=== PATIENT | male | born 1955 | race Caucasian/White ===

== ENCOUNTER 2017-03-10 15:39 | Inpatient (IN) ==
[2017-03-10] MEDS ORDERED: Ipratropium/Albuterol Neb 3 ML IH ONE (15:55)
[2017-03-10] MEDS ORDERED: methylPREDNISolone 125 MG/2 ML VIAL IVP ONE (15:55)
[2017-03-10] MEDS ORDERED: Albuterol 2.5 MG/3 ML NEBULIZER IH ONE (15:55)
[2017-03-10] MEDS ORDERED: *HR* Morphine 2 MG/ML SYRINGE IVP ONE (16:12)
[2017-03-10 16:39] LABS: Basophils # 0.1 K/mcL (0.0-0.2); Eosinophils # 0.4 K/mcL (0.0-0.6); Eosinophils % 4.6 %; Hematocrit 41.1 % (37.5-50.1); Hemoglobin 14.3 g/dL (12.9-16.9); Immature Granulocytes % 0.2 % (0-4); Lymphocytes # 1.4 K/mcL (0.6-4.6); Lymphocytes % 17.6 %; Mean Corpuscular HGB Conc 34.8 g/dL (31.6-35.5); Mean Corpuscular Hemoglobin 29.8 pg (28.0-33.3); Mean Corpuscular Volume 85.6 fL (83.0-100.0); Mean Platelet Volume 9.6 fL (9.4-12.4); Monocytes # 0.8 K/mcL (0.0-1.3); Monocytes % 9.8 %; Neutrophils # 5.5 K/mcL (1.6-8.9); Platelet Count 256 K/mcL (140-400); Red Cell Distribution Width 13.7 % (11.5-14.5); Segmented Neutrophils % 66.8 %
[2017-03-10 16:43] LABS: BUN/Creatinine Ratio 14 (6-26); Blood Urea Nitrogen 15 mg/dL (8-26); Calcium 9.3 mg/dL (8.6-10.8); Carbon Dioxide 25 mEq/L (19-29); Chloride 107 mEq/L (98-109); Glucose 93 mg/dL (70-99); Osmolality,Calculated 289 (280-300); Potassium 3.6 mEq/L (3.5-4.5); Sodium 139 mEq/L (136-145); eGFR For African Americans > 60 (> 60); eGFR For Non-African Americans > 60 (> 60)
[2017-03-10] MEDS ORDERED: *HR* HYDROmorphone (PF) 1 MG/ML SYRINGE IVP ONE (16:50)
--- NOTE | 2017-03-10 16:58 | Emergency Department Note ---
Disposition Clinical Impression: COPD with acute exacerbation Disposition: Admitted As Inpatient Condition: Good Time of Disposition: 16:55 SOB HPI - General Chief Complaint: ED Shortness of Breath/Dyspnea Stated Complaint: AVIVA Time Seen by Provider: 03/10/17 15:51 Source: patient Mode of arrival: ambulatory Limitations: no limitations Nursing Notes Reviewed: Yes Vital Signs Reviewed: Yes - History of Present Illness 61-year-old male presents with concerns of increasing difficulty in breathing over the past 24 hours. Patient states that this feels similar to his previous COPD exacerbations. Patient uses multiple albuterol inhalers this morning with minimal benefit. Patient also states that he has a mild amount of substernal pain that does not radiate. Patient states that he has been admitted to the hospital for COPD multiple times in the past, requiring steroids and antibiotics. - Related Data Home Medications Medication Instructions Recorded Confirmed Fluticasone/Salmeterol [Advair 1 each IH BID 04/26/15 03/10/17 500-50 Diskus] Rivaroxaban [Xarelto] 20 mg PO QPM 04/26/15 03/10/17 traZODone [TraZODone] 150 mg PO HS 07/28/15 03/10/17 Atorvastatin Calcium [Lipitor] 80 mg PO HS 06/24/16 03/10/17 Losartan/Hydrochlorothiazide 1 each PO DAILY 06/24/16 03/10/17 [Hyzaar 100-25 Tablet] Metoprolol XL (24 HR) Succ [Toprol 25 mg PO DAILY 06/24/16 03/10/17 Xl] Pantoprazole Sodium [Protonix] 40 mg PO DAILY 06/24/16 03/10/17 Albuterol Neb [AccuNeb] 1.25 mg IH Q6H PRN 03/10/17 03/10/17 Clopidogrel [Plavix] 75 mg PO DAILY 03/10/17 03/10/17 Meloxicam [Mobic] 7.5 mg PO BID 03/10/17 03/10/17 Oxycodone HCl/Acetaminophen 1 each PO TID PRN 03/10/17 03/10/17 [Percocet 5-325 mg Tablet] predniSONE [PredniSONE] 10 mg PO DAILY 03/10/17 03/10/17 Allergies Allergy/AdvReac Type Severity Reaction Status Date / Time No Known Allergies Allergy Verified 04/26/15 09:19 All systems ED: reviewed and negative except as stated. Cardiovascular: Reports: chest pain. Denies: palpitations, dyspnea on exertion , syncope, paroxysmal nocturnal dyspnea Respiratory: Reports: cough, dyspnea, wheezes. Denies: hemoptysis, stridor Past Medical History - Past Medical History Attestation: Yes The following information was validated with the patient. Source: patient Medical history: Reports: COPD, DVT, GERD, hyperlipidemia, hypertension, myocardial infarction Surgical history: Reports: angioplasty/stent, cataract, other Psychiatric history: Reports: no psych history - Social History Smoking Status: Former smoker Smokeless Tobacco Status: No Alcohol use: Reports: occasionally Drug use: Reports: none Physical Exam General: Alert and in no acute distress Skin: Warm, dry, intact Head: Normocephalic and atraumatic Neck: Supple, trachea midline and no tenderness Cardiovascular: RRR, no murmur, normal perfusion Respiratory: Significant amount of wheezing present in the bilateral lung gomez posteriorly. Musculoskeletal: Normal strength, no tenderness, swelling or deformity GI: Soft, nontender, nondistended. Bowel sounds present Neuro: A&O to person, place, time and situation. No focal deficits noted on exam Psychiatric: cooperative and appropriate mood and affect. - General Limitations: no limitations General appearance: alert Course Vital Signs Temperature 98 F 03/10/17 15:40 Pulse Rate 111 03/10/17 15:40 Respiratory Rate 22 03/10/17 15:40 Blood Pressure 162/89 03/10/17 15:40 O2 Sat by Pulse Oximetry 96 03/10/17 15:40 Temperature 97.7 F 03/10/17 23:56 Pulse Rate 104 03/10/17 23:56 Respiratory Rate 17 03/10/17 23:56 Blood Pressure 126/79 03/10/17 23:56 O2 Sat by Pulse Oximetry 93 03/10/17 23:56 Oxygen Delivery Oxygen Delivery Nasal Cannula Shortness of Breath/Dyspnea - [facility] Narrative Medical decision making narrative: Patient gradually improved after administration of DuoNeb and albuterol emergency department. Patient given Solu-Medrol emergency department. He states this is fairly consistent with his previous COPD exacerbations. He agrees with the plan of admission to the hospital for further care and evaluation. - Medical Records Medical records reviewed: Yes I reviewed the patient's medical records. - Lab Data Lab results reviewed: Yes I reviewed the patient's lab results. Result diagrams: 03/10/17 16:00 03/10/17 16:00 Lab Results 03/10/17 03/10/17 03/10/17 Range/Units 16:00 16:00 16:00 WBC 8.2 (4.3-11.1) K/mcL RBC 4.80 (4.19-5.50) M/mcL Hgb 14.3 (12.9-16.9) g/dL Hct 41.1 (37.5-50.1) % MCV 85.6 (83.0-100.0) fL MCH 29.8 (28.0-33.3) pg MCHC 34.8 (31.6-35.5) g/dL RDW 13.7 (11.5-14.5) % Plt Count 256 (140-400) K/mcL MPV 9.6 (9.4-12.4) fL Immature Gran % 0.2 (0-4) % Seg Neutrophils % 66.8 % Lymphocytes % 17.6 % Monocytes % 9.8 % Eosinophils % 4.6 % Basophils % 1.0 % Neutrophils # 5.5 (1.6-8.9) K/mcL Lymphocytes # 1.4 (0.6-4.6) K/mcL Monocytes # 0.8 (0.0-1.3) K/mcL Eosinophils # 0.4 (0.0-0.6) K/mcL Basophils # 0.1 (0.0-0.2) K/mcL PT (9.4-12.1) Seconds INR Sodium 139 (136-145) mEq/L Potassium 3.6 (3.5-4.5) mEq/L Chloride 107 (98-109) mEq/L Carbon Dioxide 25 (19-29) mEq/L BUN 15 (8-26) mg/dL Creatinine 1.04 (0.72-1.25) mg/dL Est GFR ( Amer) > 60 (> 60) Est GFR (Non-Af Amer) > 60 (> 60) BUN/Creatinine Ratio 14 (6-26) Glucose 93 (70-99) mg/dL Calculated Osmolality 289 (280-300) Lactic Acid 2.0 (0.5-2.2) mmol/L Calcium 9.3 (8.6-10.8) mg/dL Troponin I (0-0.03) ng/mL B-Natriuretic Peptide (0-100) pg/mL 03/10/17 03/10/17 03/10/17 Range/Units 16:00 16:00 16:00 WBC (4.3-11.1) K/mcL RBC (4.19-5.50) M/mcL Hgb (12.9-16.9) g/dL Hct (37.5-50.1) % MCV (83.0-100.0) fL MCH (28.0-33.3) pg MCHC (31.6-35.5) g/dL RDW (11.5-14.5) % Plt Count (140-400) K/mcL MPV (9.4-12.4) fL Immature Gran % (0-4) % Seg Neutrophils % % Lymphocytes % % Monocytes % % Eosinophils % % Basophils % % Neutrophils # (1.6-8.9) K/mcL Lymphocytes # (0.6-4.6) K/mcL Monocytes # (0.0-1.3) K/mcL Eosinophils # (0.0-0.6) K/mcL Basophils # (0.0-0.2) K/mcL PT 12.7 H (9.4-12.1) Seconds INR 1.2 Sodium (136-145) mEq/L Potassium (3.5-4.5) mEq/L Chloride (98-109) mEq/L Carbon Dioxide (19-29) mEq/L BUN (8-26) mg/dL Creatinine (0.72-1.25) mg/dL Est GFR ( Amer) (> 60) Est GFR (Non-Af Amer) (> 60) BUN/Creatinine Ratio (6-26) Glucose (70-99) mg/dL Calculated Osmolality (280-300) Lactic Acid (0.5-2.2) mmol/L Calcium (8.6-10.8) mg/dL Troponin I 0.01 (0-0.03) ng/mL B-Natriuretic Peptide 22 (0-100) pg/mL 03/10/17 Range/Units 17:51 WBC (4.3-11.1) K/mcL RBC (4.19-5.50) M/mcL Hgb (12.9-16.9) g/dL Hct (37.5-50.1) % MCV (83.0-100.0) fL MCH (28.0-33.3) pg MCHC (31.6-35.5) g/dL RDW (11.5-14.5) % Plt Count (140-400) K/mcL MPV (9.4-12.4) fL Immature Gran % (0-4) % Seg Neutrophils % % Lymphocytes % % Monocytes % % Eosinophils % % Basophils % % Neutrophils # (1.6-8.9) K/mcL Lymphocytes # (0.6-4.6) K/mcL Monocytes # (0.0-1.3) K/mcL Eosinophils # (0.0-0.6) K/mcL Basophils # (0.0-0.2) K/mcL PT (9.4-12.1) Seconds INR Sodium (136-145) mEq/L Potassium (3.5-4.5) mEq/L Chloride (98-109) mEq/L Carbon Dioxide (19-29) mEq/L BUN (8-26) mg/dL Creatinine (0.72-1.25) mg/dL Est GFR ( Amer) (> 60) Est GFR (Non-Af Amer) (> 60) BUN/Creatinine Ratio (6-26) Glucose (70-99) mg/dL Calculated Osmolality (280-300) Lactic Acid 2.4 H (0.5-2.2) mmol/L Calcium (8.6-10.8) mg/dL Troponin I (0-0.03) ng/mL B-Natriuretic Peptide (0-100) pg/mL - Radiology Data Radiology results reviewed: Yes I reviewed the patient's radiology results. - EKG Data EKG attestation: Yes I reviewed and interpreted this EKG. EKG results narrative: ECG - interpreted by ED physician. Rate 108 sinus tachycardia, no STEMI Critical Care Time Critical Care Time: Yes Total Critical Care Time: 31 Attestation: The high probability of a clinically significant, sudden or life threatening deterioration of the respiratory system(s) required my full and direct attention , intervention and personal management. The aggregate critical care time was 31 minutes. This time is in addition to time spent performing reported procedures but includes the following: x Data Review and interpretation x Patient assessment and monitoring of vital signs x Documentation x Medication orders and management
[2017-03-10] MEDS: Albuterol 2.5 MG/3 ML NEBULIZER IH ONE ×2 (17:03→17:22)
[2017-03-10] MEDS ORDERED: Naloxone 0.4 MG/ML INJ IVP PRN (19:25)
[2017-03-10] MEDS ORDERED: Ondansetron 4 MG/2 ML VIAL IVP PRN (19:25)
[2017-03-10 19:42] LABS: INR 1.2; Prothrombin Time 12.7 Seconds (9.4-12.1)
--- NOTE | 2017-03-10 20:09 | Internal Med History&Physical ---
Date of Encounter: 03/10/17 Time of Encounter: 19:55 Assessment and Plan (1) Acute exacerbation of chronic obstructive airways disease Current visit: No Status: Acute Acute exacerbation of COPD - associated wheezing and productive cough Continue DuoNeb breathing treatment, IV Solu-Medrol Empiric IV Rocephin, continue Symbicort Sputum cultures pending Chest x-ray - no acute cardiopulmonary disease EKG - sinus tachycardia with no acute ST-T changes Troponin - negative, we will trend Continuous pulse ox, cardiac telemetry (2) Hypertension Current visit: No Status: Chronic Essential hypertension - controlled, continue home meds, monitor Qualifiers: Hypertension type: essential hypertension Qualified Code(s): I10 - Essential (primary) hypertension (3) CAD (coronary artery disease) Current visit: No Status: Chronic History of coronary artery disease - history of [place] in April 2016 - status post stent - now stable Continue Plavix and a pravastatin Troponin - negative EKG - sinus tachycardia with no acute ST-T changes Qualifiers: Coronary Disease-Associated Artery/Lesion type: [place] artery [place] vs. transplanted heart: [place] heart Associated angina: without angina Qualified Code(s): I25.10 - Atherosclerotic heart disease of [place] coronary artery without angina pectoris (4) GERD (gastroesophageal reflux disease) Current visit: No Status: Chronic Continue pantoprazole Qualifiers: Esophagitis presence: esophagitis presence not specified Qualified Code(s) : K21.9 - Gastro-esophageal reflux disease without esophagitis (5) DVT prophylaxis Current visit: No Status: Acute Continue Xarelto - patient does have a history of DVT Internal Medicine - H&P: HPI Chief complaint: Shortness of breath and wheezing Admitted From: Emergency Dept Plans for Post Hospital Care: Home History of present illness: Mr. Villalobos is a 61 year old male with past medical history of COPD, coronary artery disease status post stent, DVT on anticoagulation, hypertension, GERD, hyperlipidemia and history of [place]. He presents to the ED with complaints of shortness of breath and wheezing. On examination patient is awake and alert. Not in any distress. He is in discomfort due to wheezing and cough. He is able to provide history. No family members at bedside. Patient states he usually has COPD exacerbation 2 or 3 times per year. He states over the past few days he has been having mild shortness of breath and cough. Symptoms have worsened this morning and then he decided to come to the ED. He also has associated wheezing. He says symptoms are worse with exertion. He does not use home oxygen. He tried to use breathing treatments, but that did not help. No alleviating factors. Patient denies chest pain. Denies palpitations. He states his cough is productive with white sputum. He also complains of associated rectal pain because of the cough. He denies abdominal pain or vomiting or fever or diarrhea no dizziness or headache. No other associated symptoms. Patient is being admitted for COPD exacerbation. He will be on DuoNeb breathing treatment, IV Solu-Medrol and IV empiric Rocephin. We will continue all his home medications. Patient has been explained about his condition and plan of care. He understood and agreed. No unanswered questions. CODE STATUS full code. Past Med Surg Social Fam HX - Past Medical History Medical history: COPD, DVT, GERD, hyperlipidemia, hypertension, myocardial infarction Psychiatric history: no psych history - Past Surgical History Surgical History: angioplasty/stent, cataract, other - Social History Smoking Status: Former smoker Smokeless Tobacco Status: No Alcohol use: occasionally Drug use: none - Family History Mother Adopted: No Family Member Ethnicity: Non- Living Status: Hx Family Cardiac Disorders: Yes (CONGESTIVE HEART FAILURE.) Hx Family Respiratory Disorders: No Hx Family Cancer: No Hx Family GI Disorders: No Hx Family Endocrine Disorder: No Hx Family Neuromuscular Disorders: No Hx Family Neurologic Disorders: Yes (Alzheimer) Hx Family HEENT Disorders: No Hx Family Autoimmune Disorders: No Father Family Member Ethnicity: Non- Living Status: Hx Family Respiratory Disorders: Yes (Lung Cancer) Brother Family Member Ethnicity: Non- Hx Family Respiratory Disorders: Yes (lung cancer) Sister Family Member Ethnicity: Non- Hx Family Neurologic Disorders: Yes (stroke) Son Family Member Ethnicity: Non- Hx Family Endocrine Disorder: Yes (diabetes) Internal Medicine - H&P: Meds Fluticasone/Salmeterol [Advair 500-50 Diskus] 1 each IH BID 04/26/15 [History] Rivaroxaban [Xarelto] 20 mg PO QPM 04/26/15 [History] traZODone [TraZODone] 150 mg PO HS 07/28/15 [History] Atorvastatin Calcium [Lipitor] 80 mg PO HS 06/24/16 [History] Losartan/Hydrochlorothiazide [Hyzaar 100-25 Tablet] 1 each PO DAILY 06/24/16 [ History] Metoprolol XL (24 HR) Succ [Toprol Xl] 25 mg PO DAILY 06/24/16 [History] Pantoprazole Sodium [Protonix] 40 mg PO DAILY 06/24/16 [History] Albuterol Neb [AccuNeb] 1.25 mg IH Q6H PRN 03/10/17 [History] Clopidogrel [Plavix] 75 mg PO DAILY 03/10/17 [History] Meloxicam [Mobic] 7.5 mg PO BID 03/10/17 [History] Oxycodone HCl/Acetaminophen [Percocet 5-325 mg Tablet] 1 each PO TID PRN [History] predniSONE [PredniSONE] 10 mg PO DAILY 03/10/17 [History] Allergies No Known Allergies Allergy (Verified 04/26/15 09:19) All Systems PM: A 10-system review of systems was performed and is negative for pertinent findings except as documented above in the HPI. - Constitutional Constitutional: fatigue, no fever(s), no weakness - EENT Eyes: no blurry vision - Cardiovascular Cardiovascular ROS IM: dyspnea, dyspnea on exertion, orthopnea, no chest pain, no edema, no lightheadedness, no syncope - Respiratory Respiratory: cough, dyspnea, dyspnea on exertion, wheezing, chest congestion, excessive phlegm production, pain with cough, no hemoptysis - Gastrointestinal Gastrointestinal: no abdominal pain, no bloating, no diarrhea, no melena, no nausea, no vomiting - Genitourinary Genitourinary ROS male: no dysuria - Musculoskeletal Musculoskeletal ROS IM: no arthralgias - Neurological Neurological ROS: no abnormal gait, no abnormal speech, no focal weakness, no numbness, no tingling - Constitutional Vitals: Temp Pulse Resp BP Pulse Ox 97.8 F 107 18 125/81 95 03/10/17 18:31 03/10/17 18:31 03/10/17 18:31 03/10/17 18:31 03/10/17 18:31 General appearance: Present: A&O X 3, morbidly obese, answers questions appropriately Exam: He was provided all history. He is in discomfort due to wheezing and cough - Head Head exam: Present: atraumatic - ENT ENT exam: Present: mucous membranes dry - Neck Neck exam general surgery: Present: supple - Respiratory Respiratory exam: Present: accessory muscle use, decreased breath sounds ( Slightly decreased in both bases), wheezes (Extensive bilateral), tachypnea - Cardiovascular Cardiovascular exam: Present: RRR, +S1, +S2, systolic murmur - GI/Abdominal GI/Abdominal exam: Present: distended (Obese), soft, no peritoneal signs. Absent: guarding, rigid, tenderness - Extremities Exam Extremities exam: Present: pedal edema (Mild bilateral nonpitting), radial pulses palpable and symetrical. Absent: cyanotic, tenderness - Neurological Exam Neurological exam: Present: alert, oriented X3, no focal deficits. Absent: facial droop, speech deficit Internal Med - H&P Results - Labs CBC & Chem 7: 03/10/17 16:00 03/10/17 16:00
[2017-03-10] MEDS: Ipratropium/Albuterol Neb 3 ML IH SCH ×3 (20:29→23:16)
[2017-03-10] MEDS: Budesonide/Formoterol 160/4.5 MDI IH SCH (20:29)
[2017-03-10] MEDS: traZODone 50 MG TABLET PO SCH (20:53)
[2017-03-10] MEDS: *HR* OxyCODONE/APAP 5/325 TABLET PO PRN (20:53)
[2017-03-10] MEDS: *HR* Rivaroxaban 10 MG TABLET PO SCH (20:54)
[2017-03-10] MEDS ORDERED: Dextrose Gel 15 GM PO PRN ×2 (22:21)
[2017-03-10] MEDS ORDERED: D5% in Water 1,000 ML IVC PRN (22:21)
[2017-03-10] MEDS ORDERED: *HR* Dextrose 50 % in Water (Syg) 50 ML SYRINGE IVP PRN (22:21)
[2017-03-10] MEDS ORDERED: Ipratropium/Albuterol Neb 3 ML IH SCH (23:00)
[2017-03-10] MEDS: methylPREDNISolone 125 MG/2 ML VIAL IVP SCH (23:56)
[2017-03-10] MEDS: Insulin LISPRO 300 UNITS/3 ML VIAL SQ SCH (23:57)
[2017-03-11] MEDS: Ipratropium/Albuterol Neb 3 ML IH SCH ×7 (03:47→21:23)
[2017-03-11 04:47] LABS: BUN/Creatinine Ratio 13 (6-26); Blood Urea Nitrogen 13 mg/dL (8-26); Calcium 9.2 mg/dL (8.6-10.8); Carbon Dioxide 25 mEq/L (19-29); Chloride 104 mEq/L (98-109); Glucose 187 mg/dL (70-99); Osmolality,Calculated 289 (280-300); Sodium 137 mEq/L (136-145); eGFR For African Americans > 60 (> 60); eGFR For Non-African Americans > 60 (> 60)
[2017-03-11] MEDS: methylPREDNISolone 125 MG/2 ML VIAL IVP SCH ×3 (06:35→17:58)
[2017-03-11] MEDS: Budesonide/Formoterol 160/4.5 MDI IH SCH ×3 (07:44→21:23)
[2017-03-11] MEDS: Metoprolol XL (24 HR) Succ 25 MG TAB.ER.24H PO SCH (07:54)
[2017-03-11] MEDS: Losartan/HCTZ 50-12.5 TABLET PO SCH (07:55)
[2017-03-11] MEDS: *HR* OxyCODONE/APAP 5/325 TABLET PO PRN ×2 (07:55→21:48)
[2017-03-11] MEDS: Insulin LISPRO 300 UNITS/3 ML VIAL SQ SCH ×4 (07:58→21:03)
[2017-03-11] MEDS ORDERED: *HR* HYDROmorphone (PF) 1 MG/ML SYRINGE IVP PRN (08:52)
--- NOTE | 2017-03-11 08:56 | Internal Med Progress Note ---
Date of Encounter: 03/11/17 Time of Encounter: 08:53 - Assessment and plan (1) Acute exacerbation of chronic obstructive pulmonary disease (COPD) Current Visit: No Status: Acute Assessment and plan: Acute COPD exacerbation likely secondary to acute bronchitis viral versus bacterial Continue Rocephin day 2, Solu-Medrol, duo nebs and oxygen therapy (2) GERD (gastroesophageal reflux disease) Current Visit: No Status: Chronic Assessment and plan: Omeprazole Qualifiers: Esophagitis presence: esophagitis presence not specified Qualified Code(s) : K21.9 - Gastro-esophageal reflux disease without esophagitis (3) History of DVT of lower extremity Current Visit: No Status: Chronic Assessment and plan: Continue Xarelto (4) CAD (coronary artery disease) Current Visit: No Status: Chronic Assessment and plan: Stable on Plavix and Toprol Qualifiers: Coronary Disease-Associated Artery/Lesion type: [place] artery [place] vs. transplanted heart: [place] heart Associated angina: without angina Qualified Code(s): I25.10 - Atherosclerotic heart disease of [place] coronary artery without angina pectoris (5) Hyperglycemia Current Visit: Yes Status: Acute Assessment and plan: Steroid-induced hyperglycemia Continue insulin sliding scale (6) Hypertension Current Visit: No Status: Chronic Assessment and plan: Continue losartan and hydrochlorothiazide Qualifiers: Hypertension type: essential hypertension Qualified Code(s): I10 - Essential (primary) hypertension - Subjective Interval history: Feeling extremely short of breath, bringing up some whitish phlegm. Complains of throat severe pain. No fevers overnight. No chest pain, no abdominal pain, no dysuria or diarrhea - Constitutional Vitals: Temp Pulse Resp BP Pulse Ox 97.6 F 95 22 129/87 96 03/11/17 06:53 03/11/17 06:53 03/11/17 07:30 03/11/17 06:53 03/11/17 07:30 General appearance: Present: A&O X 3, morbidly obese, answers questions appropriately - Head Head exam: Present: atraumatic, normocephalic - Eye Eye exam: Present: PERRL, conjuntiva pink, sclera anicteric Pupils: Present: PERRL - Neck Neck exam general surgery: Present: supple, trachea midline. Absent: lymphadenopathy - Respiratory Respiratory exam: Present: CTAB, wheezes (Diffuse wheezing). Absent: accessory muscle use, rales, rhonchi - Cardiovascular Cardiovascular exam: Present: RRR, +S1, +S2. Absent: diastolic murmur, gallop, rubs, systolic murmur - GI/Abdominal GI/Abdominal exam: Present: distended, normal bowel sounds, soft, no peritoneal signs. Absent: tenderness - Extremities Exam Extremities exam: Present: warm, radial pulses palpable and symetrical. Absent : calf tenderness, cyanotic, pedal edema - Neurological Exam Neurological exam: Present: CN II-XII intact, oriented X3, no focal deficits. Absent: pronater drift, facial droop, speech deficit - Skin Skin exam: Present: dry, intact Internal Medicine: Result - Labs CBC & Chem 7: 03/10/17 16:00 03/11/17 04:21 Labs: BMP 03/11/17 04:21 Sodium 137 Potassium 4.0 Chloride 104 Carbon Dioxide 25 BUN 13 Creatinine 1.01 Glucose 187 H Calcium 9.2 Cardiac Enzymes 03/10/17 Range/Units 21:37 Troponin I 0.00 (0-0.03) ng/mL - ABG Interpretation ABG results: PT/INR, D-dimer PT 12.7 Seconds (9.4-12.1) H 03/10/17 16:00 Consult Discharge Plan - Plan Referrals: Analisa Jimenez CNP [Primary Care Provider] -
--- NOTE | 2017-03-11 09:05 | Pulmonology Consult Note ---
Date of Encounter: 03/11/17 Time of Encounter: 09:01 Assessment and Plan (1) Acute exacerbation of chronic obstructive pulmonary disease (COPD) Current Visit: No Status: Acute The patient has COPD based upon his clinical history, true severity is unknown and furthermore it is uncertain if he is truly steroid dependent (note use of continuous prednisone for the past year, dating back to February of last year). Nonetheless, I agree with the current medical management which includes bronchodilator therapy use of systemic steroids. I have discontinued antibiotics since the patient does not have any symptoms that would suggest that he has an active bacterial respiratory infection. Outpatient management to include inhaled corticosteroid and long-acting beta agonist and when necessary short acting beta agonist. 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 Given reflux disease, I agree with antireflux treatment measures. The history of venous thromboembolism dates back some time, and unless the patient has a defined thrombophilic disorder or requires anticoagulation for paroxysmal atrial fib, it is unclear to me if he should be maintained on long- term anticoagulation therapy. The patient does have symptoms suggestive of possible sleep apnea and risk factors for the same. It would be in his best interest to undergo a sleep evaluation at some point in the future. Furthermore, I think this patient would benefit from longitudinal care with the pulmonary outpatient practice through [facility] he does not have a pulmonary physician and would likely benefit from outpatient management as directed towards optimizing treatment of his COPD with the addition of a long- acting muscarinic agent and an attempt to taper off prednisone. I reviewed my impressions and management suggestions with the patient this morning. Call if questions arise. Esdras Hussein [phone] Code(s): J44.1 - Chronic obstructive pulmonary disease with (acute) exacerbation SNOMED Code(s): 714509062 History of Present Illness Consult date: 03/11/17 Chief complaint: Dyspnea, cough, wheeze History of present illness: This 61-year-old male with a history of established COPD (former [id number] smoker, stopped 7 years ago) was admitted to the hospital with progressive dyspnea, cough, chest congestion and wheeze. He denied concurrent difficulty with fevers or chills. The sputum expectorated is clear to mucoid, not purulent in cast. According to the patient, he has been treated with bronchodilator therapy, inhaled corticosteroid with long-acting beta agonist and continuous prednisone over the past year. Mr. Nunez to his recollection has not undergone an attempt to taper off prednisone over the last year per management by his outpatient physician. 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 He has no well-established family history of asthma or lung disease. He claims that on a yearly basis, he experiences one to 2 episodes of exacerbations of respiratory symptoms. Respiratory symptoms can be provoked by changes in temperature whether humidity or nonspecific upper respiratory infectious illnesses. Past Med Surg Social Fam HX - Past Medical History Medical history: COPD, DVT, GERD, hyperlipidemia, hypertension, myocardial infarction Psychiatric history: no psych history - Past Surgical History Surgical History: angioplasty/stent, cataract, other - Social History Smoking Status: Former smoker Smokeless Tobacco Status: No Alcohol use: occasionally Drug use: none - Family History Mother Adopted: No Family Member Ethnicity: Non- Living Status: Hx Family Cardiac Disorders: Yes (CONGESTIVE HEART FAILURE.) Hx Family Respiratory Disorders: No Hx Family Cancer: No Hx Family GI Disorders: No Hx Family Endocrine Disorder: No Hx Family Neuromuscular Disorders: No Hx Family Neurologic Disorders: Yes (Alzheimer) Hx Family HEENT Disorders: No Hx Family Autoimmune Disorders: No Father Family Member Ethnicity: Non- Living Status: Hx Family Respiratory Disorders: Yes (Lung Cancer) Brother Family Member Ethnicity: Non- Hx Family Respiratory Disorders: Yes (lung cancer) Sister Family Member Ethnicity: Non- Hx Family Neurologic Disorders: Yes (stroke) Son Family Member Ethnicity: Non- Hx Family Endocrine Disorder: Yes (diabetes) Medications and Allergies Fluticasone/Salmeterol [Advair 500-50 Diskus] 1 each IH BID 04/26/15 [History] Rivaroxaban [Xarelto] 20 mg PO QPM 04/26/15 [History] traZODone [TraZODone] 150 mg PO HS 07/28/15 [History] Atorvastatin Calcium [Lipitor] 80 mg PO HS 06/24/16 [History] Losartan/Hydrochlorothiazide [Hyzaar 100-25 Tablet] 1 each PO DAILY 06/24/16 [ History] Metoprolol XL (24 HR) Succ [Toprol Xl] 25 mg PO DAILY 06/24/16 [History] Pantoprazole Sodium [Protonix] 40 mg PO DAILY 06/24/16 [History] Albuterol Neb [AccuNeb] 1.25 mg IH Q6H PRN 03/10/17 [History] Clopidogrel [Plavix] 75 mg PO DAILY 03/10/17 [History] Meloxicam [Mobic] 7.5 mg PO BID 03/10/17 [History] Oxycodone HCl/Acetaminophen [Percocet 5-325 mg Tablet] 1 each PO TID PRN [History] predniSONE [PredniSONE] 10 mg PO DAILY 03/10/17 [History] Allergies No Known Allergies Allergy (Verified 04/26/15 09:19) All Systems: A 10-system review of systems was performed and is negative for pertinent findings except as documented above in the HPI. - Constitutional Constitutional: as per HPI - Respiratory Respiratory: as per HPI Physical Examination Vital Signs: Vital Signs, Last 4 Hours Temp Pulse Resp BP Pulse Ox 03/11/17 07:30 22 96 03/11/17 06:53 97.6 F 95 26 129/87 97 General appearance: no acute distress, other (Moderately obese male) Eyes: nonicteric ENT: oropharynx moist Mallampati (class): 3 Neck: supple Auscultation: bilateral: diminished breath sounds, wheezes Cardiovascular: regular rate and rhythm Gastrointestinal: normoactive bowel sounds, non-distended Integumentary: normal Extremities: no cyanosis Musculoskeletal: no deformities normal mental status, non-focal exam Results - Laboratory Findings CBC and BMP: 03/10/17 16:00 03/11/17 04:21 PT/INR, D-dimer PT 12.7 Seconds (9.4-12.1) H 03/10/17 16:00 Abnormal lab findings: Abnormal lab results PT 12.7 Seconds (9.4-12.1) H 03/10/17 16:00 Glucose 187 mg/dL (70-99) H 03/11/17 04:21 POC Glucose 237 (58-89) H 03/10/17 21:50 Lactic Acid 2.4 mmol/L (0.5-2.2) H 03/10/17 17:51 - Clinical Findings Intake & Output: Intake & Output 03/10/17 03/11/17 03/11/17 23:59 07:59 15:59 Intake Total 450 / 450 Output Total 2149 / 2149 Balance 450 / 450 -0 / -2149 Consult Discharge Plan - Plan Referrals: Analisa Jimenez CNP [Primary Care Provider] -
[2017-03-11] MEDS: *HR* HYDROmorphone (PF) 1 MG/ML SYRINGE IVP PRN ×5 (12:03→22:34)
[2017-03-11] MEDS ORDERED: Albuterol 2.5 MG/3 ML NEBULIZER IH PRN (13:49)
--- NOTE | 2017-03-11 15:09 | Electrocardiograph Report ---
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
[2017-03-11] MEDS: *HR* Rivaroxaban 10 MG TABLET PO SCH (17:58)
[2017-03-11] MEDS: traZODone 50 MG TABLET PO SCH (21:03)
[2017-03-12] MEDS: methylPREDNISolone 125 MG/2 ML VIAL IVP SCH ×4 (00:41→17:06)
[2017-03-12] MEDS: *HR* HYDROmorphone (PF) 1 MG/ML SYRINGE IVP PRN ×9 (00:42→22:12)
[2017-03-12] MEDS: Ipratropium/Albuterol Neb 3 ML IH SCH ×7 (00:44→23:22)
[2017-03-12 06:09] LABS: BUN/Creatinine Ratio 21 (6-26); Blood Urea Nitrogen 22 mg/dL (8-26); Calcium 9.4 mg/dL (8.6-10.8); Carbon Dioxide 26 mEq/L (19-29); Chloride 101 mEq/L (98-109); Glucose 160 mg/dL (70-99); Osmolality,Calculated 289 (280-300); Potassium 4.2 mEq/L (3.5-4.5); Sodium 136 mEq/L (136-145); eGFR For African Americans > 60 (> 60); eGFR For Non-African Americans > 60 (> 60)
[2017-03-12 06:22] LABS: Hematocrit 40.6 % (37.5-50.1); Hemoglobin 13.3 g/dL (12.9-16.9); Mean Corpuscular HGB Conc 32.8 g/dL (31.6-35.5); Mean Corpuscular Hemoglobin 28.9 pg (28.0-33.3); Mean Corpuscular Volume 88.3 fL (83.0-100.0); Mean Platelet Volume 9.7 fL (9.4-12.4); Platelet Count 260 K/mcL (140-400); Red Cell Distribution Width 13.8 % (11.5-14.5)
[2017-03-12] MEDS: *HR* OxyCODONE/APAP 5/325 TABLET PO PRN ×3 (06:54→17:58)
[2017-03-12] MEDS: Metoprolol XL (24 HR) Succ 25 MG TAB.ER.24H PO SCH (07:51)
[2017-03-12] MEDS: Losartan/HCTZ 50-12.5 TABLET PO SCH (07:52)
[2017-03-12] MEDS: Budesonide/Formoterol 160/4.5 MDI IH SCH ×2 (07:55→20:29)
[2017-03-12] MEDS: Insulin LISPRO 300 UNITS/3 ML VIAL SQ SCH ×3 (08:07→17:06)
--- NOTE | 2017-03-12 08:49 | Pulmonology Progress Note ---
Date of Encounter: 03/12/17 Time of Encounter: 08:35 Assessment and Plan (1) Acute exacerbation of chronic obstructive pulmonary disease (COPD) Current Visit: No Status: Acute Continue current medical measures for treatment of acute exacerbation of COPD. Given the location of wheeze within predominantly subglottic region and central chest, is possible the patient could have diffuse tracheobronchiomalacia however the treatment essentially would remain as is. Patient likely has sleep apnea and I suggested a formal sleep evaluation at some point in the future. As noted in consultation evaluation note, the patient will require a very gradual transition off systemic steroids. I think this would be best noted within the outpatient setting by graphics specialist. Code(s): J44.1 - Chronic obstructive pulmonary disease with (acute) exacerbation SNOMED Code(s): 930447256 Subjective Principal diagnosis: Acute COPD exacerbation Interval history: Patient notes persistent chest congestion, chest tightness and wheeze cough with minimal mucoid sputum production. These symptoms have essentially remained unchanged since his admission to the hospital. Otherwise, aside from fatigue and poor sleep (history probable sleep apnea), comprehensive systems review unremarkable. Objective PUL Vital signs: Last Vital Signs Temp 97.6 F 03/12/17 06:53 Pulse 99 03/12/17 06:53 Resp 16 03/12/17 07:55 BP 145/86 03/12/17 06:53 Pulse Ox 94 03/12/17 07:55 General appearance: no acute distress, other (Moderately obese male awake and alert no distress) Mallampati (class): 3 Auscultation: bilateral: diminished breath sounds, wheezes (Note prolonged expiratory phase wheeze. Wheeze pronounced and subglottic region and central airways) Cardiovascular: regular rate and rhythm Gastrointestinal: normoactive bowel sounds, non-distended Integumentary: normal Extremities: no cyanosis Musculoskeletal: no deformities normal mental status, non-focal exam Results - Laboratory Findings CBC and BMP: 03/12/17 05:31 03/12/17 05:31 PT/INR, D-dimer PT 12.7 Seconds (9.4-12.1) H 03/10/17 16:00 Abnormal lab findings: Abnormal lab results WBC 14.4 K/mcL (4.3-11.1) H D 03/12/17 05:31 PT 12.7 Seconds (9.4-12.1) H 03/10/17 16:00 Glucose 160 mg/dL (70-99) H 03/12/17 05:31 POC Glucose 176 (58-89) H 03/11/17 16:44 Lactic Acid 2.4 mmol/L (0.5-2.2) H 03/10/17 17:51 - Clinical Findings Intake & Output: Intake & Output 03/11/17 03/12/17 03/12/17 23:59 07:59 15:59 Intake Total 480 / 480 Output Total 440 / 440 550 / 550 Balance 40 / 40 -550 / -550 Weight 136.531 kg Consult Discharge Plan - Plan Referrals: Analisa Jimenez, HONING JOB SETTER [Primary Care Provider] - (web request sent on 03/11/17 )
--- NOTE | 2017-03-12 09:25 | Internal Med Progress Note ---
Date of Encounter: 03/12/17 Time of Encounter: 09:23 - Assessment and plan (1) Acute exacerbation of chronic obstructive pulmonary disease (COPD) Current Visit: No Status: Acute Assessment and plan: Acute COPD exacerbation likely secondary to acute bronchitis/tracheitis likely viral Rocephin was discontinued at day 2, Continue IV Solu-Medrol, duo nebs and oxygen therapy (2) GERD (gastroesophageal reflux disease) Current Visit: No Status: Chronic Assessment and plan: Omeprazole Qualifiers: Esophagitis presence: esophagitis presence not specified Qualified Code(s) : K21.9 - Gastro-esophageal reflux disease without esophagitis (3) History of DVT of lower extremity Current Visit: No Status: Chronic Assessment and plan: Continue Xarelto (4) CAD (coronary artery disease) Current Visit: No Status: Chronic Assessment and plan: Stable on Plavix and Toprol Qualifiers: Coronary Disease-Associated Artery/Lesion type: [place] artery [place] vs. transplanted heart: [place] heart Associated angina: without angina Qualified Code(s): I25.10 - Atherosclerotic heart disease of [place] coronary artery without angina pectoris (5) Hyperglycemia Current Visit: Yes Status: Acute Assessment and plan: Steroid-induced hyperglycemia Continue insulin sliding scale (6) Hypertension Current Visit: No Status: Chronic Assessment and plan: Continue losartan and hydrochlorothiazide Qualifiers: Hypertension type: essential hypertension Qualified Code(s): I10 - Essential (primary) hypertension - Subjective Interval history: Feeling still short of breath, bringing up some whitish phlegm. Complains of throat severe pain/burning like. No fevers overnight. No chest pain, no abdominal pain, no dysuria or diarrhea - Constitutional Vitals: Temp Pulse Resp BP Pulse Ox 97.6 F 99 16 145/86 94 03/12/17 06:53 03/12/17 06:53 03/12/17 07:55 03/12/17 06:53 03/12/17 07:55 General appearance: Present: A&O X 3, morbidly obese, answers questions appropriately - Head Head exam: Present: atraumatic, normocephalic - Eye Eye exam: Present: PERRL, conjuntiva pink, sclera anicteric Pupils: Present: PERRL - Neck Neck exam general surgery: Present: supple, trachea midline. Absent: lymphadenopathy - Respiratory Respiratory exam: Present: CTAB, wheezes (Diffuse wheezing). Absent: accessory muscle use, rales, rhonchi - Cardiovascular Cardiovascular exam: Present: RRR, +S1, +S2. Absent: diastolic murmur, gallop, rubs, systolic murmur - GI/Abdominal GI/Abdominal exam: Present: normal bowel sounds, soft, no peritoneal signs. Absent: distended, tenderness - Extremities Exam Extremities exam: Present: warm, radial pulses palpable and symetrical. Absent : calf tenderness, cyanotic, pedal edema - Neurological Exam Neurological exam: Present: CN II-XII intact, oriented X3, no focal deficits. Absent: pronater drift, facial droop, speech deficit - Skin Skin exam: Present: dry, intact Internal Medicine: Result - Labs CBC & Chem 7: 03/12/17 05:31 03/12/17 05:31 Labs: Short CBC 03/12/17 Range/Units 05:31 WBC 14.4 H D (4.3-11.1) K/mcL Hgb 13.3 (12.9-16.9) g/dL Hct 40.6 (37.5-50.1) % Plt Count 260 (140-400) K/mcL [facility] 03/12/17 05:31 Sodium 136 Potassium 4.2 Chloride 101 Carbon Dioxide 26 BUN 22 Creatinine 1.04 Glucose 160 H Calcium 9.4 - ABG Interpretation ABG results: PT/INR, D-dimer PT 12.7 Seconds (9.4-12.1) H 03/10/17 16:00 Consult Discharge Plan - Plan Referrals: Analisa Jimenez, PROCEDURE TECH [Primary Care Provider] - (web request sent on 03/11/17 )
[2017-03-12] MEDS: *HR* Rivaroxaban 10 MG TABLET PO SCH (17:06)
[2017-03-12] MEDS: traZODone 50 MG TABLET PO SCH (22:12)
[2017-03-13] MEDS: methylPREDNISolone 125 MG/2 ML VIAL IVP SCH ×4 (00:55→16:57)
[2017-03-13] MEDS: *HR* OxyCODONE/APAP 5/325 TABLET PO PRN ×3 (00:55→19:54)
[2017-03-13] MEDS: *HR* HYDROmorphone (PF) 1 MG/ML SYRINGE IVP PRN ×9 (00:55→22:26)
[2017-03-13] MEDS: Insulin LISPRO 300 UNITS/3 ML VIAL SQ SCH ×5 (02:25→22:35)
[2017-03-13] MEDS: Ipratropium/Albuterol Neb 3 ML IH SCH ×6 (04:03→23:29)
--- NOTE | 2017-03-13 08:03 | Pulmonology Progress Note ---
Date of Encounter: 03/13/17 Time of Encounter: 08:00 Assessment and Plan (1) Acute exacerbation of chronic obstructive pulmonary disease (COPD) Current Visit: No Status: Acute Continue current medical measures for treatment of acute exacerbation of COPD. Given the location of wheeze within predominantly subglottic region and central chest, it is possible the patient could have diffuse tracheobronchiomalacia however the treatment essentially would remain as is. Patient likely has sleep apnea and I suggested a formal sleep evaluation at some point in the future. As noted in consultation evaluation note, the patient will require a very gradual transition off systemic steroids. I think this would be best provided within the outpatient setting by disease intervention specialist. Do not believe the patient is yet ready to de-escalate care clearly is not ready for discharge from the hospital. Code(s): J44.1 - Chronic obstructive pulmonary disease with (acute) exacerbation SNOMED Code(s): 471717444 Subjective Principal diagnosis: Acute COPD exacerbation Interval history: Patient notes persistent chest congestion, chest tightness and wheeze cough with minimal mucoid sputum production. These symptoms have essentially remained unchanged since his admission to the hospital. Patient claims he was able to sleep approximately 3-4 hours last night which is first time it has been able to sleep at that duration for the last week or so. The patient was up and ambulatory this morning, denies any new complaints. Otherwise, aside from fatigue and poor sleep (history probable sleep apnea), comprehensive systems review unremarkable. Objective PUL Vital signs: Last Vital Signs Temp 98.7 F 03/13/17 07:07 Pulse 106 03/13/17 07:07 Resp 18 03/13/17 07:07 BP 120/71 03/13/17 07:07 Pulse Ox 95 03/13/17 07:07 General appearance: no acute distress, other (Morbidly obese male, obvious harsh wheeze noted with activity.) Eyes: nonicteric ENT: oropharynx moist Mallampati (class): 3 Auscultation: bilateral: diminished breath sounds, wheezes Cardiovascular: regular rate and rhythm Gastrointestinal: normoactive bowel sounds, non-distended, other (Central obesity) Integumentary: normal Extremities: no cyanosis normal mental status, non-focal exam mood appropriate Results - Laboratory Findings CBC and BMP: 03/12/17 05:31 03/12/17 05:31 PT/INR, D-dimer PT 12.7 Seconds (9.4-12.1) H 03/10/17 16:00 Abnormal lab findings: Abnormal lab results WBC 14.4 K/mcL (4.3-11.1) H D 03/12/17 05:31 PT 12.7 Seconds (9.4-12.1) H 03/10/17 16:00 Glucose 160 mg/dL (70-99) H 03/12/17 05:31 POC Glucose 147 (58-89) H 03/13/17 07:09 Lactic Acid 2.4 mmol/L (0.5-2.2) H 03/10/17 17:51 - Clinical Findings Intake & Output: Intake & Output 03/12/17 03/13/17 03/13/17 23:59 07:59 15:59 Intake Total 880 / 880 Output Total 400 / 400 1350 / 1350 Balance 480 / 480 -1350 / -1350 Weight 135.4 kg Consult Discharge Plan - Plan Referrals: Analisa Jimenez, MEDIA BUYER [Primary Care Provider] - (web request sent on 03/11/17 )
[2017-03-13] MEDS: Budesonide/Formoterol 160/4.5 MDI IH SCH ×2 (08:13→20:03)
--- NOTE | 2017-03-13 08:14 | Internal Med Progress Note ---
Date of Encounter: 03/13/17 Time of Encounter: 08:12 - Assessment and plan (1) Acute exacerbation of chronic obstructive pulmonary disease (COPD) Current Visit: No Status: Acute Assessment and plan: Acute COPD exacerbation likely secondary to acute bronchitis/tracheitis likely viral Rocephin was discontinued at day 2, Continue IV Solu-Medrol, duo nebs and oxygen therapy may discharge in the morning if feeling better (2) GERD (gastroesophageal reflux disease) Current Visit: No Status: Chronic Assessment and plan: Omeprazole Qualifiers: Esophagitis presence: esophagitis presence not specified Qualified Code(s) : K21.9 - Gastro-esophageal reflux disease without esophagitis (3) History of DVT of lower extremity Current Visit: No Status: Chronic Assessment and plan: Continue Xarelto (4) CAD (coronary artery disease) Current Visit: No Status: Chronic Assessment and plan: Stable on Plavix and Toprol Qualifiers: Coronary Disease-Associated Artery/Lesion type: [place] artery [place] vs. transplanted heart: [place] heart Associated angina: without angina Qualified Code(s): I25.10 - Atherosclerotic heart disease of [place] coronary artery without angina pectoris (5) Hyperglycemia Current Visit: Yes Status: Acute Assessment and plan: Steroid-induced hyperglycemia Continue insulin sliding scale (6) Hypertension Current Visit: No Status: Chronic Assessment and plan: Continue losartan and hydrochlorothiazide Qualifiers: Hypertension type: essential hypertension Qualified Code(s): I10 - Essential (primary) hypertension - Subjective Interval history: Feeling short of breath, bringing up less whitish phlegm. Complains still of throat pain/burning like. No fevers overnight. No chest pain, no abdominal pain, no dysuria or diarrhea - Constitutional Vitals: Temp Pulse Resp BP Pulse Ox 98.7 F 106 18 120/71 95 03/13/17 07:07 03/13/17 07:07 03/13/17 07:07 03/13/17 07:07 03/13/17 07:07 General appearance: Present: A&O X 3, morbidly obese, answers questions appropriately - Head Head exam: Present: atraumatic, normocephalic - Eye Eye exam: Present: PERRL, conjuntiva pink, sclera anicteric Pupils: Present: PERRL - Neck Neck exam general surgery: Present: supple, trachea midline. Absent: lymphadenopathy - Respiratory Respiratory exam: Present: CTAB, wheezes (Diffuse lung wheezing has improved, wheezing is persistent in the upper airway). Absent: accessory muscle use, rales, rhonchi - Cardiovascular Cardiovascular exam: Present: RRR, +S1, +S2. Absent: diastolic murmur, gallop, rubs, systolic murmur - GI/Abdominal GI/Abdominal exam: Present: normal bowel sounds, soft, no peritoneal signs. Absent: distended, tenderness - Extremities Exam Extremities exam: Present: warm, radial pulses palpable and symetrical. Absent : calf tenderness, cyanotic, pedal edema - Neurological Exam Neurological exam: Present: CN II-XII intact, oriented X3, no focal deficits. Absent: pronater drift, facial droop, speech deficit - Skin Skin exam: Present: dry, intact Internal Medicine: Result - Labs CBC & Chem 7: 03/12/17 05:31 03/12/17 05:31 - ABG Interpretation ABG results: PT/INR, D-dimer PT 12.7 Seconds (9.4-12.1) H 03/10/17 16:00 Consult Discharge Plan - Plan Referrals: Analisa Jimenez, SUPERVISOR PLEATING [Primary Care Provider] - (web request sent on 03/11/17 )
[2017-03-13] MEDS: Losartan/HCTZ 50-12.5 TABLET PO SCH (08:30)
[2017-03-13] MEDS: Metoprolol XL (24 HR) Succ 25 MG TAB.ER.24H PO SCH (08:30)
[2017-03-13] MEDS: Benzonatate 100 MG CAPSULE PO PRN ×3 (10:35→22:33)
[2017-03-13] MEDS: *HR* Rivaroxaban 10 MG TABLET PO SCH (16:57)
[2017-03-14] MEDS: methylPREDNISolone 125 MG/2 ML VIAL IVP SCH ×3 (00:12→11:47)
[2017-03-14] MEDS: *HR* HYDROmorphone (PF) 1 MG/ML SYRINGE IVP PRN ×5 (00:12→11:50)
[2017-03-14] MEDS: traZODone 50 MG TABLET PO SCH (00:12)
[2017-03-14] MEDS: *HR* OxyCODONE/APAP 5/325 TABLET PO PRN (02:35)
[2017-03-14] MEDS: Ipratropium/Albuterol Neb 3 ML IH SCH ×3 (03:36→11:22)
[2017-03-14 07:12] VITALS: BP 165/94
[2017-03-14] MEDS: Budesonide/Formoterol 160/4.5 MDI IH SCH (08:00)
--- NOTE | 2017-03-14 08:51 | Discharge Summary ---
Date of Encounter: 03/14/17 Time of Encounter: 08:48 - Discharge Diagnosis (1) Acute exacerbation of chronic obstructive pulmonary disease (COPD) Priority: Primary Status: Acute Comments: Acute COPD exacerbation likely secondary to (diffuse tracheobronchiomalacia) acute bronchitis/tracheitis likely viral (2) GERD (gastroesophageal reflux disease) Priority: Secondary Status: Chronic Qualifiers: Esophagitis presence: esophagitis presence not specified Qualified Code(s) : K21.9 - Gastro-esophageal reflux disease without esophagitis (3) History of DVT of lower extremity Priority: Secondary Status: Chronic (4) CAD (coronary artery disease) Priority: Secondary Status: Chronic Qualifiers: Coronary Disease-Associated Artery/Lesion type: [place] artery [place] vs. transplanted heart: [place] heart Associated angina: without angina Qualified Code(s): I25.10 - Atherosclerotic heart disease of [place] coronary artery without angina pectoris (5) Hyperglycemia Priority: Secondary Status: Acute Comments: Steroid-induced hyperglycemia (6) Hypertension Priority: Secondary Status: Chronic Qualifiers: Hypertension type: essential hypertension Qualified Code(s): I10 - Essential (primary) hypertension - Discharge Medications Prescriptions: HYDROmorphone [Dilaudid] 4 mg PO Q4HR PRN #25 tablet PRN Reason: pain predniSONE [PredniSONE] 10 mg PO DAILY 18 Days Home Medications: Fluticasone/Salmeterol [Advair 500-50 Diskus] 1 each IH BID 04/26/15 [History] Rivaroxaban [Xarelto] 20 mg PO QPM 04/26/15 [History] traZODone [TraZODone] 150 mg PO HS 07/28/15 [History] Atorvastatin Calcium [Lipitor] 80 mg PO HS 06/24/16 [History] Losartan/Hydrochlorothiazide [Hyzaar 100-25 Tablet] 1 each PO DAILY 06/24/16 [ History] Metoprolol XL (24 HR) Succ [Toprol Xl] 25 mg PO DAILY 06/24/16 [History] Pantoprazole Sodium [Protonix] 40 mg PO DAILY 06/24/16 [History] Albuterol Neb [AccuNeb] 1.25 mg IH Q6H PRN 03/10/17 [History] Clopidogrel [Plavix] 75 mg PO DAILY 03/10/17 [History] Meloxicam [Mobic] 7.5 mg PO BID 03/10/17 [History] Oxycodone HCl/Acetaminophen [Percocet 5-325 mg Tablet] 1 each PO TID PRN [History] HYDROmorphone [Dilaudid] 4 mg PO Q4HR PRN #25 tablet 03/14/17 [Rx] predniSONE [PredniSONE] 10 mg PO DAILY 18 Days 03/14/17 [Rx] Allergies/Adverse Reactions: Allergies No Known Allergies Allergy (Verified 04/26/15 09:19) Date of admission: 03/10/17 20:40 Primary care physician: Analisa Jimenez CNP - Patient Status Disposition: Home, Self-Care Condition: Good Overall status at discharge: patient is progressing back to baseline - Discharge Instructions Follow Up With: Analisa Jimenez CNP [Primary Care Provider] - (web request sent on 03/11/17 ) Additional Instructions: Follow-up with primary care physician within the next 7 days. Continue prednisone taper. Follow-up with the pulmonary service within the next 3 weeks - Diet and Activity Activity: increase activity as tolerated Diet: low fat, low cholesterol Hospital course: Mr. Villalobos is a 61 year old male with past medical history of COPD not oxygen dependent, coronary artery disease status post stent, DVT on anticoagulation/ Xarelto, hypertension, GERD, hyperlipidemia and history of SC. He presented to the ED with complaints of shortness of breath and wheezing. Complained of persistent wheezing and cough. Patient stated he usually has COPD exacerbation 2 or 3 times per year. He stated over the past few days he was having mild shortness of breath and cough. Symptoms worsened and then he decided to come to the ED. He says symptoms were worse with exertion. He does not use home oxygen. He tried to use breathing treatments, but that did not help. No alleviating factors. Patient denied chest pain. Denied palpitations. He stated his cough was productive with white sputum. Patient was admitted for a COPD exacerbation. Was started on IV Solu-Medrol and IV empiric Rocephin. Rocephin was discontinued after being evaluated by the pulmonary service. The patient has been improving very slowly, wheezing has improved but still present, was given the option to stay another day but he insisted on being discharged as he has an appointment tomorrow. Will be discharged on a hig dose slow prednisone taper. - Time Spent with Patient Total time spent providing and/or coordinating discharge services: Greater than 30 minutes (40 min) - Constitutional Vitals: Temp Pulse Resp BP Pulse Ox 98.1 F 101 17 165/94 97 03/14/17 07:07 03/14/17 07:07 03/14/17 08:00 03/14/17 07:07 03/14/17 08:00 General appearance: Present: A&O X 3, morbidly obese, answers questions appropriately - Head Head exam: Present: atraumatic, normocephalic - Eye Eye exam: Present: PERRL, conjuntiva pink, sclera anicteric Pupils: Present: PERRL - Neck Neck exam general surgery: Present: supple, trachea midline. Absent: lymphadenopathy - Respiratory Respiratory exam: Present: CTAB, wheezes (Diffuse wheezing has improved). Absent: accessory muscle use, rales, rhonchi - Cardiovascular Cardiovascular exam: Present: RRR, +S1, +S2. Absent: diastolic murmur, gallop, rubs, systolic murmur - GI/Abdominal GI/Abdominal exam: Present: distended, normal bowel sounds, soft, no peritoneal signs. Absent: tenderness - Extremities Exam Extremities exam: Present: warm, radial pulses palpable and symetrical. Absent : calf tenderness, cyanotic, pedal edema - Neurological Exam Neurological exam: Present: CN II-XII intact, oriented X3, no focal deficits. Absent: pronater drift, facial droop, speech deficit - Skin Skin exam: Present: dry, intact
[2017-03-14] MEDS: Insulin LISPRO 300 UNITS/3 ML VIAL SQ SCH ×2 (08:58→11:39)
[2017-03-14] MEDS: Metoprolol XL (24 HR) Succ 25 MG TAB.ER.24H PO SCH (08:59)
[2017-03-14] MEDS: Losartan/HCTZ 50-12.5 TABLET PO SCH (08:59)
== END 2017-03-14 12:15 | disposition home or self-care (01) | DRG 192 ==
LOC: EMEROO 15:39 → 2ANU 15:39
PROVIDERS: ADMIT Family Medicine; ATTEND Internal Medicine

== ENCOUNTER 2017-04-12 12:32 | Inpatient (IN) ==
--- NOTE | 2017-04-11 21:19 | Discharge Summary ---
<Lorena Olivarez Del - Last Filed: 04/11/17 21:16> Date of Encounter: 04/11/17 - Discharge Diagnosis (1) Status post total hip replacement, left Priority: Primary Status: Acute (2) Arthritis of left hip Priority: Primary Status: Acute (3) History of ST elevation myocardial infarction (STEMI) Priority: Secondary Status: Chronic (4) Chronic pain Priority: Secondary Status: Chronic Comments: Hold Percocet 5/325mg TID. 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 Will resume day of surgery. (6) GERD (gastroesophageal reflux disease) Priority: Secondary Status: Chronic Qualifiers: Esophagitis presence: esophagitis presence not specified (7) History of DVT of lower extremity Priority: Secondary Status: Chronic Comments: On Xarelto. (8) Hypertension Priority: Secondary Status: Chronic Qualifiers: Hypertension type: essential hypertension (9) CAD (coronary artery disease) Priority: Secondary Status: Chronic Qualifiers: Coronary Disease-Associated Artery/Lesion type: unspecified vessel or lesion type [place] vs. transplanted heart: unspecified whether [place] or transplanted heart Associated angina: angina presence unspecified Qualified Code(s): I25.10 - Atherosclerotic heart disease of [place] coronary artery without angina pectoris (10) COPD with acute exacerbation Priority: Secondary Status: Chronic - Discharge Medications Home Medications: Fluticasone/Salmeterol [Advair 500-50 Diskus] 1 each IH BID 04/26/15 [History] Rivaroxaban [Xarelto] 20 mg PO QPM 04/26/15 [History] traZODone [TraZODone] 150 mg PO HS 07/28/15 [History] Atorvastatin Calcium [Lipitor] 80 mg PO HS 06/24/16 [History] Losartan/Hydrochlorothiazide [Hyzaar 100-25 Tablet] 1 each PO DAILY 06/24/16 [ History] Metoprolol XL (24 HR) Succ [Toprol Xl] 25 mg PO DAILY 06/24/16 [History] Pantoprazole Sodium [Protonix] 40 mg PO DAILY 06/24/16 [History] Albuterol Neb [AccuNeb] 1.25 mg IH Q6H PRN 03/10/17 [History] Clopidogrel [Plavix] 75 mg PO DAILY 03/10/17 [History] Meloxicam [Mobic] 7.5 mg PO BID PRN 03/10/17 [History] OxyCODONE Immed Rel [Roxicodone 5 MG] 5 - 10 mg PO Q6HR PRN #40 tablet 04/11/17 [Rx] Oxycodone HCl/Acetaminophen [Percocet 5-325 mg Tablet] 1 tab PO TID PRN [History] predniSONE [PredniSONE] 10 mg PO DAILY 04/12/17 [History] Allergies/Adverse Reactions: 3 Allergy/AdvReac Type Severity Reaction Status Date / Time No Known Allergies Allergy Verified 04/08/17 10:29 Primary care physician: Analisa Jimenez CNP - Patient Status Disposition: Transfer Inpatient Rehab Fac Condition: Good - Discharge Instructions Follow Up With: Analisa Jimenez CNP [Primary Care Provider] - - Hospital Course Hospital course: Mr. Villalobos is a 61 year old male - Time Spent with Patient Total time spent providing and/or coordinating discharge services: <Ed Rucker - Last Filed: 04/14/17 06:36> Date of Encounter: 04/14/17 Time of Encounter: 06:35 - Discharge Diagnosis (1) GERD (gastroesophageal reflux disease) Priority: Secondary Status: Chronic Qualifiers: Esophagitis presence: esophagitis presence not specified Qualified Code(s) : K21.9 - Gastro-esophageal reflux disease without esophagitis (2) History of DVT of lower extremity Priority: Secondary Status: Chronic (3) Hypertension Priority: Secondary Status: Chronic Qualifiers: Hypertension type: essential hypertension Qualified Code(s): I10 - Essential (primary) hypertension (4) Status post total hip replacement, left Priority: Primary Status: Acute (5) History of ST elevation myocardial infarction (STEMI) Priority: Secondary Status: Chronic (6) Chronic pain Priority: Secondary Status: Chronic Qualifiers: Chronic pain type: other chronic pain Qualified Code(s): G89.29 - Other chronic pain (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 Villalobos is a 61 year old male Status post left total hip replacement The patient had an uneventful postoperative course. They received antibiotics and physical therapy and were discharged in stable condition. There will follow -up in the office in 2 weeks. - Time Spent with Patient Total time spent providing and/or coordinating discharge services:
--- NOTE | 2017-04-12 10:38 | Physician Discharge Referral ---
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 Priority: Secondary Status: Chronic (6) GERD (gastroesophageal reflux disease) Priority: Secondary Status: Chronic (7) History of DVT of lower extremity Priority: Secondary Status: Chronic (8) Hypertension Priority: Secondary Status: Chronic (9) CAD (coronary artery disease) Priority: Secondary Status: Chronic (10) COPD with acute exacerbation Priority: Secondary Status: Chronic Expected Duration of Placement: < 30 days Prognosis: Good Aware of Diagnosis: Patient Aware of Prognosis: Patient - Transfer Medications Prescriptions: OxyCODONE Immed Rel [Roxicodone 5 MG] 5 - 10 mg PO Q6HR PRN #40 tablet PRN Reason: Pain Home Medications: Fluticasone/Salmeterol [Advair 500-50 Diskus] 1 each IH BID 04/26/15 [History] Rivaroxaban [Xarelto] 20 mg PO QPM 04/26/15 [History] traZODone [TraZODone] 150 mg PO HS 07/28/15 [History] Atorvastatin Calcium [Lipitor] 80 mg PO HS 06/24/16 [History] Losartan/Hydrochlorothiazide [Hyzaar 100-25 Tablet] 1 each PO DAILY 06/24/16 [ History] Metoprolol XL (24 HR) Succ [Toprol Xl] 25 mg PO DAILY 06/24/16 [History] Pantoprazole Sodium [Protonix] 40 mg PO DAILY 06/24/16 [History] Albuterol Neb [AccuNeb] 1.25 mg IH Q6H PRN 03/10/17 [History] Clopidogrel [Plavix] 75 mg PO DAILY 03/10/17 [History] Meloxicam [Mobic] 7.5 mg PO BID 03/10/17 [History] OxyCODONE Immed Rel [Roxicodone 5 MG] 5 - 10 mg PO Q6HR PRN #40 tablet 04/11/17 [Rx] Allergies/Adverse Reactions: 3 Allergy/AdvReac Type Severity Reaction Status Date / Time No Known Allergies Allergy Verified 04/08/17 10:29 - Respiratory Orders None Smoking Cessation: Smoking cessation has been advised. For more information, call the [place] Tobacco Quit Line at 8-798-GYEH-NOW. - Lab Orders Lab Orders: CBC - Ancillary Orders May use pressure relief devices daily prn, May go on MODE w/family/respon constitution party w /meds at nurse discretion PRN, May consult with Dentist, Car Dealer, Pig Farm Manager PRN - Mobility Orders Chair, Ambulate - Rehabiliation Orders Rehab Potential: Good Rehab Orders: ROM Exercises, Evaluation for Physical Therapy, Evaluation for Occupational Therapy Other: PT/OT. WBAT to affected extremity. Follow Total Knee Precautions x 6 weeks. Stay in brace at night only. Plan to discontinue brace after first post- operative appointment. ICE and elevate extremity frequently throughout the day. Encourage ambulation exercises. IS 10x/hour - Treatments List/Other: Opsite placed. Keep dressing intact until first follow up appointment. If > 50% saturated,notify offfice, remove dressing and place appropriate dressing back in place. Dressing is water resistant, not water-proof. OK to shower, but do not get dressing wet. Siri in place, to be removed at POD#14-16. - Diet Orders Regular CERTIFICATION: I certify that the transfer of the above named patient to an Extended Care Facility is necessary for the continuing treatment of the diagnosis listed. The above information is true and accurate reflection of patient's current condition. Confidential - Redisclosure prohibited without a patient's written consent.
--- NOTE | 2017-04-12 12:49 | Anesthesia Evaluation PreOp ---
Date of Encounter: 04/12/17 Time of Encounter: 12:47 - Past History Planned Operation: l milton Cardiac History: PA, HTN, Hyperlipidemia, Cardiac Stent (05/08 ef 60, [place] lad), Other (h/o dvt. 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: Other (migraine, lbp) Other Medical History: GERD Anesthesia History: No Prior Anesthetic Complications, Past Anesthesia (bilar rcr, salivary gland duct obstruction) Alcohol Use: occasionally Drug use: none Medications and Allergies Fluticasone/Salmeterol [Advair 500-50 Diskus] 1 each IH BID 04/26/15 [History] Rivaroxaban [Xarelto] 20 mg PO QPM 04/26/15 [History] traZODone [TraZODone] 150 mg PO HS 07/28/15 [History] Atorvastatin Calcium [Lipitor] 80 mg PO HS 06/24/16 [History] Losartan/Hydrochlorothiazide [Hyzaar 100-25 Tablet] 1 each PO DAILY 06/24/16 [ History] Metoprolol XL (24 HR) Succ [Toprol Xl] 25 mg PO DAILY 06/24/16 [History] Pantoprazole Sodium [Protonix] 40 mg PO DAILY 06/24/16 [History] Albuterol Neb [AccuNeb] 1.25 mg IH Q6H PRN 03/10/17 [History] Clopidogrel [Plavix] 75 mg PO DAILY 03/10/17 [History] Meloxicam [Mobic] 7.5 mg PO BID 03/10/17 [History] OxyCODONE Immed Rel [Roxicodone 5 MG] 5 - 10 mg PO Q6HR PRN #40 tablet 04/11/17 [Rx] 3 Allergy/AdvReac Type Severity Reaction Status Date / Time No Known Allergies Allergy Verified 04/08/17 10:29 - Meds/Allergy Pre-op Review Medications Reviewed: Yes Allergies Reviewed: Yes Beta Blockers on Current Med List: Yes If Beta Blockers taken, Date/Time (Last Dose taken): metoprolol [id number] Anesthesia Results - Labs Laboratory Tests 04/08/17 04/08/17 04/08/17 10:38 10:38 10:38 Hgb 15.0 Hct 45.2 Plt Count 346 PT 14.4 H INR 1.3 APTT 32.6 Sodium 136 Potassium 3.9 Creatinine 1.13 - Imaging EKG: report reviewed (sr 07/08) Anesthesia Exam O2 Sat Height 1.87 m Height 1.87 m Weight 134.263 kg Weight 134.263 kg O2 Sat by Pulse Oximetry 95 Vital Signs Temp Pulse Resp BP Pulse Ox 97.7 F 107 18 144/86 95 04/12/17 12:46 04/12/17 12:46 04/12/17 12:46 04/12/17 12:46 04/12/17 12:46 Height: 1.87 Weight: 134 NPO (# of Hours): >8 - HEENT Pupil (Motor): Pupils equal, EOMI Mallampati: II Teeth: Poor dentition Oral Opening: Greater than 3 (good underbite) - ADVERTISING OPERATIONS COORDINATOR LOC: Oriented ADVERTISING OPERATIONS COORDINATOR Motor: Normal RUE, Normal LUE, Normal RLE, Normal LLE, Normal Face ADVERTISING OPERATIONS COORDINATOR Sensory: Normal: RUE, LUE, RLE, LLE, Face - Cardiac Rhythm: Regular Murmur: None - Pulmonary Breath Sounds: bilateral Clear Respiratory Effort: Symmetrical Anesthesia Assess/Plan ASA Score: 3 (ketamine and lidocaine gtt for pain, along with toradol) Modified [place] Scale for Level of Consciousness: Cooperative, oriented, and tranquil Anesthetic Plan: General Monitoring Plan: Standard Monitors Recovery Plan: PACU
[2017-04-12] MEDS ORDERED: CloNIDine Patch 0.1 MG PATCH (WEEKLY) TD SCH (13:00)
[2017-04-12] MEDS ORDERED: Ringers Solution, Lactated 1,000 ML IVC SCH ×2 (13:00→19:36)
--- NOTE | 2017-04-12 13:04 | History & Physical Report ---
Date of Encounter: 04/12/17 Time of Encounter: 13:04 24 Hour HP Update - Instructions Instructions: If the History and Physical is less than 30 days old and was completed prior to A.M. admission and or procedure and has NOT been updated on calendar day of procedure please complete this update prior to performing procedure. - Update Patient reports changes in Medical Condition: No Changes in examination, assessment, or condition: No Changes in Medication: No Preop tests/diagnostics Reviewed: Yes Surgery Remains Indicated: Yes Consent for Planned Operative Procedure(s) Verified: Yes - Pre-Operative Checklist Preoperative Checklist Indicated: No Prophylactic Antibiotic Ordered: Yes Is VTE Prophylaxis Indicated?: Yes
[2017-04-12] MEDS ORDERED: Vancomycin 2,000 MG in D5% in Water 500 ML IVPB ONE (13:13)
[2017-04-12] MEDS ORDERED: Albuterol 2.5 MG/3 ML NEBULIZER ONE (13:44)
[2017-04-12] MEDS ORDERED: Levalbuterol Neb 1.25 MG/3 ML IH ONE (13:53)
[2017-04-12] MEDS: Plasma-Lyte A (PH 7.4) 1,000 ML IVC SCH ×2 (14:26→18:33)
[2017-04-12] MEDS ORDERED: Ketamine *HR* 500 MG/10 ML MDV ONE (16:57)
[2017-04-12] MEDS ORDERED: Lidocaine -MPF 2% 2 ML VIAL ONE (16:57)
[2017-04-12] MEDS ORDERED: *HR* Succinylcholine 200 MG/10 ML VIAL IVP ONE (16:57)
[2017-04-12] MEDS ORDERED: *HR* Phenylephrine 10 MG/ML VIAL ONE (16:57)
[2017-04-12] MEDS ORDERED: *HR* FentaNYL (PF) 100 MCG/2 ML VIAL ONE (16:57)
[2017-04-12] MEDS ORDERED: Lidocaine -MPF 4% 5 ML AMPUL ONE (16:57)
[2017-04-12] MEDS ORDERED: *HR* Midazolam HCl 2 MG/2 ML VIAL ONE ×2 (16:57)
[2017-04-12] MEDS ORDERED: *HR* Propofol 200 MG/20 ML VIAL IVP ONE ×2 (16:57)
[2017-04-12] MEDS ORDERED: Ondansetron 4 MG/2 ML VIAL ONE (16:58)
[2017-04-12] MEDS ORDERED: Dexamethasone 4 MG/ML VIAL ONE (16:58)
[2017-04-12] MEDS ORDERED: Metoclopramide 10 MG/2 ML VIAL ONE (16:58)
--- NOTE | 2017-04-12 17:04 | Orthopedic Operative Note ---
Date of procedure: 04/12/17 Pre-op diagnosis: Avascular necrosis left hip Post-op diagnosis: same Procedure: Procedure: Left Total Hip Replacment Estimated blood loss: 300 cc Hardware: Metal and polyethylene replacement. Biomet DM Cup: 60 G7 fin cup Femoral size 13 echo full profile lateralized stem Head: +6 head with Milagros Procedural Notes: Avascular necrosis left hip. Operative procedure: The patient was brought to the operating room and placed on the operating room table. After general anesthesia was administered the patient was placed in the lateral decubitus position with the operative leg up. All pressure points were padded appropriately and the head was stabilized in the neutral position. The operative extremity was prepped and draped in the sterile surgical fashion patient received IV antibiotic prior to skin incision. A standard posterior approach is made to the operative hip, the incision was made through the skin and subcutaneous tissue hemostasis was obtained with Bovie cautery. Using careful sharp dissection the fascia was identified and incised exposing the external rotators. The external rotators were released off the greater trochanter and tagged with #2 FiberWire suture. The capsule was T'd open and the hip was brought into internal rotation. Patient noted to have a vascular necrosis of femoral head. The femoral neck cut was made at the appropriate level. An anterior capsulotomy was performed for the anterior retractor. Soft tissues removed from the acetabulum. Patient noted to have grade 4 arthritic changes acetabulum. Acetabulum was first reamed medially, and then reamed in 15 degrees of anteversion and 45 degrees off the horizontal. It was reamed up to the appropriate size 60. The appropriate-sized 60 acetabular cup was impacted in place in 15 degrees of anteversion and 45 degrees off the horizontal. This had good fit and fixation. The hip was brought back in to internal rotation and prepared with the box covering machine operator followed by the canal finder followed by broaching process in 20 degrees anteversion. It was broached up to the appropriate size 13. The femoral implant was impacted in place in 20 degrees of anteversion. Trial reduction found the hip to be stable with +6 head and Milagros. The trials were removed and the real implants were impacted in place. The hip was reduced, patient had apparent equal leg lengths. The hip had excellent stability with forward flexion to 90 degrees adduction of 30 degrees and internal rotation of 60 degrees. The hip had no shuck. The hips after 2 minutes with a Betadine saline solution. It was irrigated out with 2 L of pulse irrigation. The hip was closed by the PA. Fascia was closed with a running #2 PDS suture. The deep tissue was irrigated and closed deep with #1 PDS suture superficially with 0 PDS suture and skin was closed with Dermabond and skin connie. The patient was placed in a sterile dressing and abduction pillow. The patient was extubated and transferred to the recovery room in stable condition. Anesthesia: GETA Surgeon: Ed Rucker Airways Operations Specialist: Camille Camacho Condition: stable Disposition: PACU
[2017-04-12] MEDS ORDERED: Ondansetron 4 MG/2 ML VIAL IVP PRN ×2 (17:08→19:36)
[2017-04-12] MEDS ORDERED: *HR* Labetalol 20 MG/4 ML SYRINGE IVP PRN (17:08)
[2017-04-12] MEDS ORDERED: Ketorolac 30 MG/ML VIAL ONE (17:14)
[2017-04-12] MEDS ORDERED: *HR* HYDROmorphone 2 MG/ML SYRINGE ONE (17:23)
[2017-04-12] MEDS: *HR* HYDROmorphone (PF) 1 MG/ML SYRINGE IVP PRN ×7 (17:40→23:30)
[2017-04-12] MEDS ORDERED: Albuterol 2.5 MG/3 ML NEBULIZER IH ONE (17:43)
[2017-04-12] MEDS ORDERED: *HR* HYDROmorphone (PF) 1 MG/ML SYRINGE IVP PRN (18:19)
[2017-04-12] MEDS ORDERED: *HR* HYDROmorphone (PF) 1 MG/ML SYRINGE ONE (18:31)
[2017-04-12 18:32] LABS: Hematocrit 40.6 % (37.5-50.1)
[2017-04-12 18:34] LABS: Hemoglobin 13.3 g/dL (12.9-16.9)
--- NOTE | 2017-04-12 18:51 | Anesthesia Evaluation Post Op ---
Date of Encounter: 04/12/17 Time of Encounter: 18:50 - Vital Signs Vital Signs: Vital Signs/O2 Sat, Most Current Temp Pulse Resp BP Pulse Ox 99.2 F 111 16 99/68 95 04/12/17 18:32 04/12/17 18:42 04/12/17 18:42 04/12/17 18:42 04/12/17 18:42 - Lungs Lungs: Clear Ascult./Percussion - Airway Airway: Non-obstructed - Cardiovascular Regular Rate - Mental Status Mental Status: Alert & Oriented, Answers Appropriately - Pain Pain Scale: 7 Pain Scale used: Numeric (1 - 10) - Nausea Vomiting Nausea Vomiting: Not Present - Hydration Hydration: Ice chips, Has not voided - Discharge PostOp Status: Transfer Patient to floor
[2017-04-12] MEDS ORDERED: *HR* OxyCODONE Immed Rel 5 MG TABLET PO PRN (19:36)
[2017-04-12] MEDS ORDERED: Sennosides 8.6 MG TABLET PO PRN (19:36)
[2017-04-12] MEDS ORDERED: Naloxone 0.4 MG/ML INJ IVP PRN (19:36)
[2017-04-12] MEDS ORDERED: MOM Conc 10 ML UD.LIQ PO PRN (19:36)
[2017-04-12] MEDS ORDERED: Temazepam 15 MG CAPSULE PO PRN (19:36)
[2017-04-12] MEDS: Ascorbic Acid 500 MG TABLET PO SCH (19:56)
[2017-04-12] MEDS: traZODone 50 MG TABLET PO SCH (19:56)
[2017-04-12] MEDS: *HR* Rivaroxaban 10 MG TABLET PO SCH (19:56)
[2017-04-12] MEDS: *HR* OxyCODONE Immed Rel 5 MG TABLET PO PRN (20:05)
[2017-04-12] MEDS: ceFAZolin 3,000 MG in D5% in Water 100 ML IVPB SCH (20:27)
[2017-04-12] MEDS: Albuterol Neb 1.25 MG/3 ML VIAL IH PRN (23:34)
[2017-04-12] MEDS: Budesonide/Formoterol 160/4.5 MDI IH SCH (23:34)
[2017-04-13] MEDS: *HR* OxyCODONE Immed Rel 5 MG TABLET PO PRN ×3 (01:50→11:36)
[2017-04-13] MEDS: *HR* HYDROmorphone (PF) 1 MG/ML SYRINGE IVP PRN ×10 (03:04→23:22)
[2017-04-13] MEDS: ceFAZolin 3,000 MG in D5% in Water 100 ML IVPB SCH (04:07)
[2017-04-13 05:40] LABS: Hematocrit 36.2 % (37.5-50.1)
[2017-04-13 05:51] LABS: Calcium 9.2 mg/dL (8.6-10.8); Potassium 4.4 mEq/L (3.5-4.5)
--- NOTE | 2017-04-13 06:43 | Orthopedics Progress Note ---
Date of Encounter: 04/13/17 Time of Encounter: 06:43 - Assessment and Plan (1) GERD (gastroesophageal reflux disease) Current Visit: No Status: Chronic Qualifiers: Esophagitis presence: esophagitis presence not specified Qualified Code(s) : K21.9 - Gastro-esophageal reflux disease without esophagitis (2) History of DVT of lower extremity Current Visit: No Status: Chronic (3) Hypertension Current Visit: No Status: Chronic Qualifiers: Hypertension type: essential hypertension Qualified Code(s): I10 - Essential (primary) hypertension (4) Status post total hip replacement, left Current Visit: Yes Status: Acute (5) History of ST elevation myocardial infarction (STEMI) Current Visit: Yes Status: Chronic (6) Chronic pain Current Visit: Yes Status: Chronic Qualifiers: Chronic pain type: other chronic pain Qualified Code(s): G89.29 - Other chronic pain (7) detention current use of anticoagulant therapy Current Visit: Yes Status: Chronic (8) Obesity (BMI 35.0-39.9 without comorbidity) Current Visit: Yes Status: Chronic (9) Avascular necrosis of bone of left hip Current Visit: Yes Status: Chronic Subjective Interval history: Patient was seen this morning doing well without complaints. Afebrile vital signs stable. Operative extremity: Neurovascularly intact Dressing clean dry and intact Calves nontender Assessment and plan: Continue with postoperative care Hematocrit 36 Objective Vital signs: Vital Signs Temp Pulse Resp BP Pulse Ox 04/13/17 04:38 97.9 F 111 21 115/68 92 04/13/17 01:50 111/70 04/13/17 00:10 97.6 F 111 21 104/68 95 04/12/17 23:43 20 97 04/12/17 22:35 97.8 F 110 18 104/68 96 04/12/17 20:30 98 F 112 17 124/91 91 04/12/17 20:00 97.8 F 107 18 106/74 92 04/12/17 19:30 97.7 F 110 18 96/70 04/12/17 18:52 99.0 F 105 16 104/81 93 04/12/17 18:42 111 16 99/68 95 04/12/17 18:32 99.2 F 105 16 95/72 93 04/12/17 18:22 112 18 104/83 95 04/12/17 18:12 108 20 124/88 95 08/21/17 18:02 98.7 F 100 16 105/88 94 04/12/17 17:52 96 16 125/86 98 04/12/17 17:42 101 16 119/91 93 04/12/17 17:32 97.5 F L 86 16 115/97 97 04/12/17 12:46 97.7 F 107 18 144/86 95 Intake and Output 04/12/17 04/12/17 04/13/17 15:59 23:59 07:59 Intake Total 1400 / 1400 Output Total 200 / 200 275 / 275 Balance 1200 / 1200 -275 / -275 Intake: IV Fluids 1050 / 1050 Plasma-Lyte A (PH 7.4) 1, 950 / 950 000 ML @ 25 mls/hr IVC . Q24H [facility] Rx#:[id number] Ancef 3,000 MG In 100 / 100 Dextrose 5% 100 ML @ 200 mls/hr IVPB Q8H [facility] Rx#: [id number] Oral 350 / 350 Output: Urine 275 / 275 Estimated Blood Loss 200 / 200 Other: Weight 134.263 kg - Labs CBC & BMP: 04/13/17 05:04 04/13/17 05:04 Labs: Abnormal lab results Hgb 12.0 g/dL (12.9-16.9) L 04/13/17 05:04 Hct 36.2 % (37.5-50.1) L 04/13/17 05:04 Sodium 134 mEq/L (136-145) L 04/13/17 05:04 Creatinine 1.77 mg/dL (0.72-1.25) H 04/13/17 05:04 Est GFR ( Amer) 47 (> 60) L 04/13/17 05:04 Est GFR (Non-Af Amer) 39 (> 60) L 04/13/17 05:04 Glucose 147 mg/dL (70-99) H 04/13/17 05:04 - VTE Documentation of Mechanical Device: Venous foot pump, device Consult Discharge Plan - Plan Referrals: Analisa Jimenez, PAIN MEDICINE PHYSICIAN [Primary Care Provider] -
[2017-04-13] MEDS: Multivit/Ca/Min/Fe/FA 1 TAB TABLET PO SCH (07:23)
[2017-04-13] MEDS: Ascorbic Acid 500 MG TABLET PO SCH ×2 (07:23→17:02)
[2017-04-13] MEDS: Losartan/HCTZ 50-12.5 TABLET PO SCH (07:24)
[2017-04-13] MEDS: Metoprolol XL (24 HR) Succ 25 MG TAB.ER.24H PO SCH (07:24)
[2017-04-13] MEDS: Budesonide/Formoterol 160/4.5 MDI IH SCH ×2 (10:47→20:24)
[2017-04-13] MEDS: Albuterol Neb 1.25 MG/3 ML VIAL IH PRN (11:39)
--- NOTE | 2017-04-13 12:08 | Event Note ---
Date of Encounter: 04/13/17 Time of Encounter: 12:06 PCR - Left THR - POD#1 Patient seen at bedside. Pain control: difficulty - Chronic pain medication: Percocet 5/325 TID *Plan to resume Chronic pain medication, increased to 2 tabs q 6 hours during hospital stay; given Oxycodone for home medication* Participating in PT. All questions and concerns addressed. Educated on use of incentive spirometer, ambulation, and hydration. Patient educated on post-operative restrictions and care. Addressed: History of DVT 2013 - bilateral leg, history of STEMI with stent placement 2015 , COPD Resumed Xarelto 04/13/17 Added Compression stockings. D/C plan: ECF*
[2017-04-13] MEDS ORDERED: *HR* OxyCODONE/APAP 5/325 TABLET PO PRN (12:29)
[2017-04-13] MEDS: *HR* OxyCODONE/APAP 5/325 TABLET PO PRN ×2 (15:58→22:22)
[2017-04-13] MEDS: *HR* Rivaroxaban 10 MG TABLET PO SCH (17:02)
[2017-04-13] MEDS: traZODone 50 MG TABLET PO SCH (23:29)
[2017-04-14] MEDS: *HR* HYDROmorphone (PF) 1 MG/ML SYRINGE IVP PRN ×8 (01:21→20:50)
[2017-04-14] MEDS: Albuterol Neb 1.25 MG/3 ML VIAL IH PRN ×2 (02:12→20:05)
[2017-04-14] MEDS: *HR* OxyCODONE/APAP 5/325 TABLET PO PRN ×3 (06:04→22:34)
--- NOTE | 2017-04-14 06:37 | Orthopedics Progress Note ---
Date of Encounter: 04/14/17 Time of Encounter: 06:36 - Assessment and Plan (1) GERD (gastroesophageal reflux disease) Current Visit: No Status: Chronic Qualifiers: Esophagitis presence: esophagitis presence not specified Qualified Code(s) : K21.9 - Gastro-esophageal reflux disease without esophagitis (2) History of DVT of lower extremity Current Visit: No Status: Chronic (3) Hypertension Current Visit: No Status: Chronic Qualifiers: Hypertension type: essential hypertension Qualified Code(s): I10 - Essential (primary) hypertension (4) Status post total hip replacement, left Current Visit: Yes Status: Acute (5) History of ST elevation myocardial infarction (STEMI) Current Visit: Yes Status: Chronic (6) Chronic pain Current Visit: Yes Status: Chronic Qualifiers: Chronic pain type: other chronic pain Qualified Code(s): G89.29 - Other chronic pain (7) half-way current use of anticoagulant therapy Current Visit: Yes Status: Chronic (8) Obesity (BMI 35.0-39.9 without comorbidity) Current Visit: Yes Status: Chronic (9) Avascular necrosis of bone of left hip Current Visit: Yes Status: Chronic Subjective Interval history: Patient was seen this morning doing well without complaints. Afebrile vital signs stable. Operative extremity: Neurovascularly intact Dressing clean dry and intact Calves nontender Assessment and plan: Continue with postoperative care Hematocrit 36 discharged today Objective Vital signs: Vital Signs Temp Pulse Resp BP Pulse Ox 04/14/17 05:05 111 94 04/14/17 04:47 98.4 F 119 21 127/85 92 04/14/17 02:14 20 93 04/14/17 01:22 128/76 04/13/17 23:27 98.9 F 108 18 112/77 93 04/13/17 20:32 99.0 F 106 21 139/71 94 04/13/17 16:15 98.5 F 110 18 105/72 94 04/13/17 11:39 18 92 04/13/17 11:35 98.2 F 101 18 118/70 95 04/13/17 10:47 18 93 04/13/17 07:10 98.5 F 104 16 112/71 93 Intake and Output 04/13/17 04/13/17 04/14/17 15:59 23:59 07:59 Intake Total 1020 / 1020 100 / 100 Output Total 275 / 275 375 / 375 325 / 325 Balance 745 / 745 -275 / -275 -325 / -325 Intake: Oral 1020 / 1020 100 / 100 Output: Urine 275 / 275 375 / 375 325 / 325 Other: Meal Lunch Percent of Meal Consumed 100% 0% Weight 136.7 kg Patient Weight 04/14/17 23:59 Weight 136.7 kg - Labs CBC & BMP: 04/13/17 05:04 04/13/17 05:04 Labs: Abnormal lab results Hgb 12.0 g/dL (12.9-16.9) L 04/13/17 05:04 Hct 36.2 % (37.5-50.1) L 04/13/17 05:04 Sodium 134 mEq/L (136-145) L 04/13/17 05:04 Creatinine 1.77 mg/dL (0.72-1.25) H 04/13/17 05:04 Est GFR ( Amer) 47 (> 60) L 04/13/17 05:04 Est GFR (Non-Af Amer) 39 (> 60) L 04/13/17 05:04 Glucose 147 mg/dL (70-99) H 04/13/17 05:04 - VTE Documentation of Mechanical Device: Graduated compression elastic hosiery Consult Discharge Plan - Plan Referrals: Analisa Jimenez, TEST PREPARATION TUTOR [Primary Care Provider] -
[2017-04-14 06:40] LABS: Hematocrit 31.8 % (37.5-50.1); Hemoglobin 10.5 g/dL (12.9-16.9)
[2017-04-14 06:53] LABS: BUN/Creatinine Ratio 16 (6-26); Blood Urea Nitrogen 16 mg/dL (8-26); Calcium 8.9 mg/dL (8.6-10.8); Carbon Dioxide 28 mEq/L (19-29); Chloride 96 mEq/L (98-109); Glucose 138 mg/dL (70-99); Osmolality,Calculated 277 (280-300); Potassium 3.9 mEq/L (3.5-4.5); Sodium 132 mEq/L (136-145); eGFR For African Americans > 60 (> 60); eGFR For Non-African Americans > 60 (> 60)
[2017-04-14] MEDS: Ascorbic Acid 500 MG TABLET PO SCH ×2 (07:31→16:27)
[2017-04-14] MEDS: Multivit/Ca/Min/Fe/FA 1 TAB TABLET PO SCH (07:31)
[2017-04-14] MEDS: Metoprolol XL (24 HR) Succ 25 MG TAB.ER.24H PO SCH (07:32)
[2017-04-14] MEDS: Losartan/HCTZ 50-12.5 TABLET PO SCH (07:32)
[2017-04-14] MEDS: Budesonide/Formoterol 160/4.5 MDI IH SCH ×2 (08:17→20:05)
--- NOTE | 2017-04-14 11:17 | Event Note ---
Date of Encounter: 04/14/17 Time of Encounter: 11:50 PCR - Left THR - POD#2 Patient seen at bedside. H/H 10.5/31.8 Pain control: difficulty - Chronic pain medication: Percocet 5/325 TID *Plan to resume Chronic pain medication, increased to 2 tabs q 6 hours during hospital stay; given Oxycodone for home medication* Added Gabapentin and Lidoderm for improved pain control - patient having pain in lateral thigh and medial [place] unrelieved with opiate pain medication Participating in PT. All questions and concerns addressed. Educated on use of incentive spirometer, ambulation, and hydration. Patient educated on post-operative restrictions and care. Addressed: History of DVT 2013 - bilateral leg, history of STEMI with stent placement 2015 , COPD Resumed Xarelto 04/13/17 Added Compression stockings. D/C plan: ECF*
[2017-04-14] MEDS ORDERED: Gabapentin 300 MG CAPSULE PO ONE (11:45)
[2017-04-14] MEDS: *HR* Rivaroxaban 10 MG TABLET PO SCH (16:27)
[2017-04-14] MEDS: traZODone 50 MG TABLET PO SCH (20:40)
[2017-04-14] MEDS: Gabapentin 300 MG CAPSULE PO SCH (20:40)
[2017-04-15] MEDS: *HR* HYDROmorphone (PF) 1 MG/ML SYRINGE IVP PRN ×2 (00:48→06:26)
[2017-04-15] MEDS: *HR* OxyCODONE/APAP 5/325 TABLET PO PRN ×2 (04:53→11:19)
--- NOTE | 2017-04-15 06:48 | Orthopedics Progress Note ---
Date of Encounter: 04/15/17 Time of Encounter: 06:48 - Assessment and Plan (1) GERD (gastroesophageal reflux disease) Current Visit: No Status: Chronic Qualifiers: Esophagitis presence: esophagitis presence not specified Qualified Code(s) : K21.9 - Gastro-esophageal reflux disease without esophagitis (2) History of DVT of lower extremity Current Visit: No Status: Chronic (3) Hypertension Current Visit: No Status: Chronic Qualifiers: Hypertension type: essential hypertension Qualified Code(s): I10 - Essential (primary) hypertension (4) Status post total hip replacement, left Current Visit: Yes Status: Acute (5) History of ST elevation myocardial infarction (STEMI) Current Visit: Yes Status: Chronic (6) Chronic pain Current Visit: Yes Status: Chronic Qualifiers: Chronic pain type: other chronic pain Qualified Code(s): G89.29 - Other chronic pain (7) FDC current use of anticoagulant therapy Current Visit: Yes Status: Chronic (8) Obesity (BMI 35.0-39.9 without comorbidity) Current Visit: Yes Status: Chronic (9) Avascular necrosis of bone of left hip Current Visit: Yes Status: Chronic Subjective Interval history: Patient was seen this morning doing well without complaints. Afebrile vital signs stable. Operative extremity: Neurovascularly intact Dressing clean dry and intact Calves nontender Assessment and plan: Continue with postoperative care Hematocrit 31 discharged today Objective Vital signs: Vital Signs Temp Pulse Resp BP Pulse Ox 04/15/17 05:13 98.1 F 91 19 121/73 97 04/15/17 00:43 99.1 F 109 18 109/62 94 04/14/17 21:51 98.5 F 106 17 115/64 93 04/14/17 20:06 14 94 04/14/17 16:38 64 12 107/55 99 04/14/17 14:56 98.5 F 98 16 123/76 98 04/14/17 10:07 98.2 F 104 18 119/81 96 04/14/17 08:18 20 91 Intake and Output 04/14/17 04/14/17 04/15/17 15:59 23:59 07:59 Intake Total 240 / 240 150 / 150 100 / 100 Output Total 1125 / 1125 750 / 750 1325 / 1325 Balance -885 / -885 -600 / -600 -1225 / -1225 Intake: Oral 240 / 240 150 / 150 100 / 100 Output: Urine 1125 / 1125 750 / 750 1325 / 1325 Other: Meal Lunch Percent of Meal Consumed 50% - Labs CBC & BMP: 04/14/17 06:10 04/14/17 06:10 Labs: Abnormal lab results Hgb 10.5 g/dL (12.9-16.9) L D 04/14/17 06:10 Hct 31.8 % (37.5-50.1) L 04/14/17 06:10 Sodium 132 mEq/L (136-145) L 04/14/17 06:10 Chloride 96 mEq/L (98-109) L 04/14/17 06:10 Glucose 138 mg/dL (70-99) H 04/14/17 06:10 Calculated Osmolality 277 (280-300) L 04/14/17 06:10 - VTE Documentation of Mechanical Device: Graduated compression elastic hosiery Consult Discharge Plan - Plan Referrals: Analisa Jimenez, ACCESS RN [Primary Care Provider] -
[2017-04-15] MEDS: Budesonide/Formoterol 160/4.5 MDI IH SCH (08:17)
[2017-04-15] MEDS: Gabapentin 300 MG CAPSULE PO SCH (09:07)
[2017-04-15] MEDS: Metoprolol XL (24 HR) Succ 25 MG TAB.ER.24H PO SCH (09:07)
[2017-04-15] MEDS: Multivit/Ca/Min/Fe/FA 1 TAB TABLET PO SCH (09:07)
[2017-04-15] MEDS: Losartan/HCTZ 50-12.5 TABLET PO SCH (09:07)
[2017-04-15] MEDS: Ascorbic Acid 500 MG TABLET PO SCH (09:08)
[2017-04-15 11:22] VITALS: BP 104/72
--- NOTE | 2017-04-15 11:57 | Event Note ---
Date of Encounter: 04/15/17 Time of Encounter: 11:56 PCR - Left THR - POD#2 Patient seen at bedside. Pain control: improving, D/C Dilaudid today - Chronic pain medication: Percocet 5/325 TID *Plan to resume Chronic pain medication, increased to 2 tabs q 6 hours during hospital stay; given Oxycodone for home medication* Improved with Gabapentin and Lidoderm for improved pain control Participating in PT. All questions and concerns addressed. Educated on use of incentive spirometer, ambulation, and hydration. Patient educated on post-operative restrictions and care. Addressed: History of DVT 2013 - bilateral leg, history of STEMI with stent placement 2015 , COPD Resumed Xarelto 04/13/17 Added Compression stockings. D/C plan: ECF*
== END 2017-04-15 15:29 | DRG 470 ==
LOC: SAMDAY 12:32 → 3NENU 19:31
PROVIDERS: ADMIT Orthopaedic Surgery; ATTEND Orthopaedic Surgery

== ENCOUNTER 2017-12-08 14:11 | Inpatient (IN) ==
[2017-12-08] MEDS ORDERED: Ipratropium/Albuterol Neb 3 ML ONE (14:27)
[2017-12-08] MEDS ORDERED: Ipratropium/Albuterol Neb 3 ML IH ONE (14:27)
--- NOTE | 2017-12-08 14:28 | Emergency Department Note ---
Disposition Clinical Impression: COPD (chronic obstructive pulmonary disease) Disposition: Home, Self-Care Condition: Good General Adult HPI - General Stated complaint: SOB Time Seen by Provider: 12/08/17 14:23 - Related Data Home Medications Medication Instructions Recorded Confirmed Fluticasone/Salmeterol [Advair 1 puff IH BID 04/26/15 12/08/17 500-50 Diskus] Rivaroxaban [Xarelto] 20 mg PO QPM 04/26/15 12/08/17 traZODone [TraZODone] 150 mg PO HS 07/28/15 12/08/17 Atorvastatin Calcium [Lipitor] 80 mg PO HS 06/24/16 12/08/17 Pantoprazole Sodium [Protonix] 40 mg PO DAILY 06/24/16 12/08/17 Albuterol Neb [AccuNeb] 1.25 mg IH Q6H PRN 03/10/17 12/08/17 Clopidogrel [Plavix] 75 mg PO DAILY 03/10/17 12/08/17 predniSONE [PredniSONE] 10 mg PO DAILY 04/12/17 12/08/17 Previous Rx's Medication Instructions Recorded HYDROcodone/Acet 5/325 mg [[place] 1 - 2 tab PO Q4H PRN #7 tab 04/30/17 5-325 mg] Metoprolol XL (24 HR) Succ [Toprol 50 mg PO DAILY #30 05/03/17 Xl] Allergies Allergy/AdvReac Type Severity Reaction Status Date / Time No Known Allergies Allergy Verified 12/08/17 15:22 Past Medical History - Past Medical History Medical history: Reports: arthritis, COPD, DVT, GERD, hyperlipidemia, hypertension, myocardial infarction Surgical history: Reports: angioplasty/stent, cataract, orthopedic, other Psychiatric history: Reports: no psych history - Social History Smoking Status: Former smoker Smokeless Tobacco Status: No Alcohol use: Reports: occasionally Drug use: Reports: none Course Vital Signs Temperature 98.4 F 12/08/17 14:17 Pulse Rate 106 12/08/17 14:17 Respiratory Rate 30 12/08/17 14:17 Blood Pressure 130/97 12/08/17 14:17 O2 Sat by Pulse Oximetry 94 12/08/17 14:17 Temperature 97.6 F 12/08/17 17:13 Pulse Rate 92 12/08/17 17:13 Respiratory Rate 25 12/08/17 17:13 Blood Pressure 134/83 12/08/17 17:13 O2 Sat by Pulse Oximetry 95 12/08/17 17:13 Oxygen Delivery Oxygen Delivery Nasal Cannula Medical Decision Making - Lab Data Result diagrams: 12/08/17 14:28 12/08/17 14:28 Lab Results 12/08/17 12/08/17 12/08/17 Range/Units 14:28 14:28 14:28 WBC 11.7 H (4.3-11.1) K/mcL RBC 4.59 (4.19-5.50) M/mcL Hgb 13.3 (12.9-16.9) g/dL Hct 40.3 (37.5-50.1) % MCV 87.8 (83.0-100.0) fL MCH 29.0 (28.0-33.3) pg MCHC 33.0 (31.6-35.5) g/dL RDW 12.9 (11.5-14.5) % Plt Count 305 (140-400) K/mcL MPV 9.4 (9.4-12.4) fL Immature Gran % 0.6 (0-4) % Seg Neutrophils % 83.6 % Lymphocytes % 8.4 % Monocytes % 6.3 % Eosinophils % 0.6 % Basophils % 0.5 % Neutrophils # 9.8 H (1.6-8.9) K/mcL Lymphocytes # 1.0 (0.6-4.6) K/mcL Monocytes # 0.7 (0.0-1.3) K/mcL Eosinophils # 0.1 (0.0-0.6) K/mcL Basophils # 0.1 (0.0-0.2) K/mcL VBG pH (7.32-7.42) pH Units VBG pCO2 (41-51) mmHg VBG pO2 (25-50) mmHg VBG HCO3 (21-27) mEq/L Sodium 139 (136-145) mEq/L Potassium 3.9 (3.5-5.1) mEq/L Chloride 104 (98-107) mEq/L Carbon Dioxide 26 (23-29) mEq/L BUN 17 (8-23) mg/dL Creatinine 1.03 (0.70-1.30) mg/dL Est GFR ( Amer) > 60 (> 60) Est GFR (Non-Af Amer) > 60 (> 60) BUN/Creatinine Ratio 17 (6-26) Glucose 104 (70-105) mg/dL Calculated Osmolality 290 (280-300) Calcium 9.6 (8.6-10.3) mg/dL Magnesium 1.8 (1.6-2.6) mg/dL Total Bilirubin 0.4 (0.3-1.0) mg/dL AST 23 (13-39) Units/L ALT 40 (7-52) Units/L Alkaline Phosphatase 92 (34-104) Units/L Troponin I < 0.03 (< 0.04) ng/mL B-Natriuretic Peptide 22 (Less than 100) pg/mL Serum Total Protein 6.8 (6.4-8.9) g/dL Albumin 4.1 (3.5-5.7) g/dL Globulin 2.7 (2.4-3.5) g/dL Albumin/Globulin Ratio 1.5 (1.1-2.2) /18/18 Range/Units 14:50 WBC (4.3-11.1) K/mcL RBC (4.19-5.50) M/mcL Hgb (12.9-16.9) g/dL Hct (37.5-50.1) % MCV (83.0-100.0) fL MCH (28.0-33.3) pg MCHC (31.6-35.5) g/dL RDW (11.5-14.5) % Plt Count (140-400) K/mcL MPV (9.4-12.4) fL Immature Gran % (0-4) % Seg Neutrophils % % Lymphocytes % % Monocytes % % Eosinophils % % Basophils % % Neutrophils # (1.6-8.9) K/mcL Lymphocytes # (0.6-4.6) K/mcL Monocytes # (0.0-1.3) K/mcL Eosinophils # (0.0-0.6) K/mcL Basophils # (0.0-0.2) K/mcL VBG pH 7.45 H (7.32-7.42) pH Units VBG pCO2 40 L (41-51) mmHg VBG pO2 112 H (25-50) mmHg VBG HCO3 28 H (21-27) mEq/L Sodium (136-145) mEq/L Potassium (3.5-5.1) mEq/L Chloride (98-107) mEq/L Carbon Dioxide (23-29) mEq/L BUN (8-23) mg/dL Creatinine (0.70-1.30) mg/dL Est GFR ( Amer) (> 60) Est GFR (Non-Af Amer) (> 60) BUN/Creatinine Ratio (6-26) Glucose (70-105) mg/dL Calculated Osmolality (280-300) Calcium (8.6-10.3) mg/dL Magnesium (1.6-2.6) mg/dL Total Bilirubin (0.3-1.0) mg/dL AST (13-39) Units/L ALT (7-52) Units/L Alkaline Phosphatase (34-104) Units/L Troponin I (< 0.04) ng/mL B-Natriuretic Peptide (Less than 100) pg/mL Serum Total Protein (6.4-8.9) g/dL Albumin (3.5-5.7) g/dL Globulin (2.4-3.5) g/dL Albumin/Globulin Ratio (1.1-2.2) Critical Care Time Critical Care Time: Yes Total Critical Care Time: 30 Attestation: The high probability of a clinically significant, sudden or life threatening deterioration of the [] system(s) required my full and direct attention, intervention and personal management. The aggregate critical care time was [] minutes. This time is in addition to time spent performing reported procedures but includes the following: [] Data Review and interpretation [] Patient assessment and monitoring of vital signs [] Documentation [] Medication orders and management Attestation Statement - Attestation Attestation: I examined this patient and my medical decision-making was reviewed with the Resident Physician. I agree with the documented findings, disposition and treatment plan as described except to the extent set forth below. [id number] time provided The patient has a known history of non-oxygen dependent COPD. He presents to the emergency department dyspnea. He is tachypneic with labored breathing on exam. Audible wheezes. Patient evaluated in conjunction with the resident physician Dr. Ken
[2017-12-08] MEDS ORDERED: methylPREDNISolone 125 MG/2 ML VIAL IVP ONE (14:29)
--- NOTE | 2017-12-08 14:32 | Emergency Department Note ---
Disposition Clinical Impression: COPD (chronic obstructive pulmonary disease) Qualifiers: COPD type: unspecified COPD Qualified Code(s): J44.9 - Chronic obstructive pulmonary disease, unspecified Disposition: Home, Self-Care Condition: Good SOB HPI - General Chief Complaint: ED Shortness of Breath/Dyspnea Stated Complaint: SOB Time Seen by Provider: 12/08/17 14:23 Source: patient Mode of arrival: ambulatory Limitations: no limitations Nursing Notes Reviewed: Yes Vital Signs Reviewed: Yes - History of Present Illness 62-year-old male with a history of COPD presents for evaluation of dyspnea. Patient states symptom onsets been over the past couple days. Patients had a nonproductive cough. She is also noted some upper chest pain. Patient states he does have a history of tracheitis. Patient is chronically on prednisone 10 mg daily. Patient does not take oxygen at home. Patient denies any fevers. No abdominal pain. Patient denies a nausea vomiting or diaphoresis. Patient denies any history of prior intubations. 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 - Related Data Home Medications Medication Instructions Recorded Confirmed Fluticasone/Salmeterol [Advair 1 puff IH BID 04/26/15 12/08/17 500-50 Diskus] Rivaroxaban [Xarelto] 20 mg PO QPM 04/26/15 12/08/17 traZODone [TraZODone] 150 mg PO HS 07/28/15 12/08/17 Atorvastatin Calcium [Lipitor] 80 mg PO HS 06/24/16 12/08/17 Pantoprazole Sodium [Protonix] 40 mg PO DAILY 06/24/16 12/08/17 Albuterol Neb [AccuNeb] 1.25 mg IH Q6H PRN 03/10/17 12/08/17 Clopidogrel [Plavix] 75 mg PO DAILY 03/10/17 12/08/17 predniSONE [PredniSONE] 10 mg PO DAILY 04/12/17 12/08/17 Previous Rx's Medication Instructions Recorded HYDROcodone/Acet 5/325 mg [[place] 1 - 2 tab PO Q4H PRN #7 tab 04/30/17 5-325 mg] Metoprolol XL (24 HR) Succ [Toprol 50 mg PO DAILY #30 05/03/17 Xl] Allergies Allergy/AdvReac Type Severity Reaction Status Date / Time No Known Allergies Allergy Verified 12/08/17 15:22 All systems ED: reviewed and negative except as stated. Constitutional: Denies: fever Cardiovascular: Reports: chest pain Respiratory: Reports: cough, dyspnea. Denies: sputum production Gastrointestinal: Denies: abdominal pain, nausea, vomiting Past Medical History - Past Medical History Source: patient Medical history: Reports: arthritis, COPD, DVT, GERD, hyperlipidemia, hypertension, myocardial infarction Surgical history: Reports: angioplasty/stent, cataract, orthopedic, other Psychiatric history: Reports: no psych history - Social History Smoking Status: Former smoker Smokeless Tobacco Status: No Alcohol use: Reports: occasionally Drug use: Reports: none Physical Exam - General Limitations: no limitations General appearance: alert, in distress - Head Head exam: atraumatic, normocephalic, normal inspection - Eye Eye exam: Present: normal appearance, PERRL, EOMI - ENT ENT exam: normal exam, normal oropharynx, mucous membranes moist - Neck Neck exam: Present: normal inspection - Chest Chest inspection: Present: normal inspection, symmetric chest wall rise. Absent : tenderness, rash - Respiratory Respiratory exam: Present: respiratory distress, wheezes (Diffuse inspiratory expiratory wheezes throughout), accessory muscle use, prolonged expiratory phase - Cardiovascular Cardiovascular exam: Present: regular rate, normal rhythm. Absent: systolic murmur - Abdominal Exam Abdominal exam: Present: soft, Non-Tender - Extremities Exam Extremities exam: Present: normal inspection. Absent: pedal edema - Expanded Lower Extremity Exam Neurovascular/Tendon exam: Present: normal capillary refill - Neurological Exam Neurological exam: Present: alert - Skin Skin exam: Present: warm, dry, intact, normal color Course Course Narrative: Patient seen and examined. Patient does have increased work of breathing. Patient will get breathing nebs, positive pressure, chest x-ray symptomatic treatment likely admission given his increased work of breathing. - Reevaluation(s) Reevaluation #1: Patient does have increased work of breathing which appears to be improving. Patient does have diffuse wheezing throughout. We will re-dose the patient's nebs. Time: 15:03 Reevaluation #2: Patient's breathing has improved. Patient will be taken off BiPAP and continue on supplemental oxygen. Time: 15:21 Vital Signs Temperature 98.4 F 12/08/17 14:17 Pulse Rate 106 12/08/17 14:17 Respiratory Rate 30 12/08/17 14:17 Blood Pressure 130/97 12/08/17 14:17 O2 Sat by Pulse Oximetry 94 12/08/17 14:17 Temperature 97.6 F 12/08/17 17:13 Pulse Rate 92 12/08/17 17:13 Respiratory Rate 25 12/08/17 17:13 Blood Pressure 134/83 12/08/17 17:13 O2 Sat by Pulse Oximetry 95 12/08/17 17:13 Oxygen Delivery Oxygen Delivery Nasal Cannula Shortness of Breath/Dyspnea - [facility] Narrative Medical decision making narrative: Patient presents with respiratory distress. Patient did have an increased work of breathing upon arrival. Patient did have BiPAP placed. Patient's breathing did improve with de-escalation of BiPAP following nebs and steroids. Given the patient's work of breathing and cough patient chest x-ray does not show any signs of pneumonia however the patient will be treated with Levaquin for presumed bronchitis and COPD exacerbation. Patient is chronically on steroids with prednisone. Patient has low likelihood of ACS or pulmonary embolism. Patient is currently on Xarelto for a DVT. Patient's breathing did improve with COPD therapies. Patient be admitted to hospital service for further respiratory support and monitoring. - Lab Data Lab results reviewed: Yes I reviewed the patient's lab results. Result diagrams: 12/08/17 14:28 12/08/17 14:28 Lab Results 12/08/17 12/08/17 12/08/17 Range/Units 14:28 14:28 14:28 WBC 11.7 H (4.3-11.1) K/mcL RBC 4.59 (4.19-5.50) M/mcL Hgb 13.3 (12.9-16.9) g/dL Hct 40.3 (37.5-50.1) % MCV 87.8 (83.0-100.0) fL MCH 29.0 (28.0-33.3) pg MCHC 33.0 (31.6-35.5) g/dL RDW 12.9 (11.5-14.5) % Plt Count 305 (140-400) K/mcL MPV 9.4 (9.4-12.4) fL Immature Gran % 0.6 (0-4) % Seg Neutrophils % 83.6 % Lymphocytes % 8.4 % Monocytes % 6.3 % Eosinophils % 0.6 % Basophils % 0.5 % Neutrophils # 9.8 H (1.6-8.9) K/mcL Lymphocytes # 1.0 (0.6-4.6) K/mcL Monocytes # 0.7 (0.0-1.3) K/mcL Eosinophils # 0.1 (0.0-0.6) K/mcL Basophils # 0.1 (0.0-0.2) K/mcL VBG pH (7.32-7.42) pH Units VBG pCO2 (41-51) mmHg VBG pO2 (25-50) mmHg VBG HCO3 (21-27) mEq/L Sodium 139 (136-145) mEq/L Potassium 3.9 (3.5-5.1) mEq/L Chloride 104 (98-107) mEq/L Carbon Dioxide 26 (23-29) mEq/L BUN 17 (8-23) mg/dL Creatinine 1.03 (0.70-1.30) mg/dL Est GFR ( Amer) > 60 (> 60) Est GFR (Non-Af Amer) > 60 (> 60) BUN/Creatinine Ratio 17 (6-26) Glucose 104 (70-105) mg/dL Calculated Osmolality 290 (280-300) Calcium 9.6 (8.6-10.3) mg/dL Magnesium 1.8 (1.6-2.6) mg/dL Total Bilirubin 0.4 (0.3-1.0) mg/dL AST 23 (13-39) Units/L ALT 40 (7-52) Units/L Alkaline Phosphatase 92 (34-104) Units/L Troponin I < 0.03 (< 0.04) ng/mL B-Natriuretic Peptide 22 (Less than 100) pg/mL Serum Total Protein 6.8 (6.4-8.9) g/dL Albumin 4.1 (3.5-5.7) g/dL Globulin 2.7 (2.4-3.5) g/dL Albumin/Globulin Ratio 1.5 (1.1-2.2) 12/08/17 Range/Units 14:50 WBC (4.3-11.1) K/mcL RBC (4.19-5.50) M/mcL Hgb (12.9-16.9) g/dL Hct (37.5-50.1) % MCV (83.0-100.0) fL MCH (28.0-33.3) pg MCHC (31.6-35.5) g/dL RDW (11.5-14.5) % Plt Count (140-400) K/mcL MPV (9.4-12.4) fL Immature Gran % (0-4) % Seg Neutrophils % % Lymphocytes % % Monocytes % % Eosinophils % % Basophils % % Neutrophils # (1.6-8.9) K/mcL Lymphocytes # (0.6-4.6) K/mcL Monocytes # (0.0-1.3) K/mcL Eosinophils # (0.0-0.6) K/mcL Basophils # (0.0-0.2) K/mcL VBG pH 7.45 H (7.32-7.42) pH Units VBG pCO2 40 L (41-51) mmHg VBG pO2 112 H (25-50) mmHg VBG HCO3 28 H (21-27) mEq/L Sodium (136-145) mEq/L Potassium (3.5-5.1) mEq/L Chloride (98-107) mEq/L Carbon Dioxide (23-29) mEq/L BUN (8-23) mg/dL Creatinine (0.70-1.30) mg/dL Est GFR ( Amer) (> 60) Est GFR (Non-Af Amer) (> 60) BUN/Creatinine Ratio (6-26) Glucose (70-105) mg/dL Calculated Osmolality (280-300) Calcium (8.6-10.3) mg/dL Magnesium (1.6-2.6) mg/dL Total Bilirubin (0.3-1.0) mg/dL AST (13-39) Units/L ALT (7-52) Units/L Alkaline Phosphatase (34-104) Units/L Troponin I (< 0.04) ng/mL B-Natriuretic Peptide (Less than 100) pg/mL Serum Total Protein (6.4-8.9) g/dL Albumin (3.5-5.7) g/dL Globulin (2.4-3.5) g/dL Albumin/Globulin Ratio (1.1-2.2) - Radiology Data Radiology results reviewed: Yes I reviewed the patient's radiology results. Chest X-Ray 12/08/17 14:28 IMPRESSION: 1. No active pulmonary disease. D/ / Sudhir Tesfaye MD / Sudhir Tesfaye MD Interpreting Provider: Sudhir Tesfaye MD - EKG Data EKG attestation: Yes I reviewed and interpreted this EKG. EKG shows normal: Reports: sinus rhythm Rate: Reports: tachycardia Rhythm: Reports: NSR [place]/QRS: Reports: normal, RBBB T wave inversions noted in: Reports: v1, v2 Interpretation: Reports: no acute changes, unchanged when compared to prior tracing (date), nonspecific ST-T wave changes S.B.A.R. - S.B.A.RAmarilis Situation: Demographics Background: Presenting Complaint Assessment: Vital Signs, Course and respsone to treatment, Patient/Family Expectation Recommendation: Barrier(s) to disposition, Recommendation based on pending studies, treatments, or consults S.B.A.RAmarilis Report Given to: Dr. Medina ZamarripaAGhanshyam Repor Time: 16:11
[2017-12-08 14:53] LABS: VBG HCO3 28 mEq/L (21-27); VBG PCO2 40 mmHg (41-51); VBG PH 7.45 pH Units (7.32-7.42); VBG PO2 112 mmHg (25-50)
[2017-12-08 15:00] LABS: Basophils # 0.1 K/mcL (0.0-0.2); Basophils % 0.5 %; Eosinophils # 0.1 K/mcL (0.0-0.6); Eosinophils % 0.6 %; Hematocrit 40.3 % (37.5-50.1); Hemoglobin 13.3 g/dL (12.9-16.9); Immature Granulocytes % 0.6 % (0-4); Lymphocytes % 8.4 %; Mean Corpuscular Volume 87.8 fL (83.0-100.0); Mean Platelet Volume 9.4 fL (9.4-12.4); Monocytes # 0.7 K/mcL (0.0-1.3); Monocytes % 6.3 %; Neutrophils # 9.8 K/mcL (1.6-8.9); Platelet Count 305 K/mcL (140-400); Red Blood Count 4.59 M/mcL (4.19-5.50); Red Cell Distribution Width 12.9 % (11.5-14.5); Segmented Neutrophils % 83.6 %
[2017-12-08] MEDS ORDERED: Albuterol 2.5 MG/3 ML NEBULIZER IH ONE (15:03)
[2017-12-08] MEDS ORDERED: 0.9 % Sodium Chloride 1,000 ML IVC ONE (15:06)
[2017-12-08 15:10] LABS: Troponin I < 0.03 ng/mL (< 0.04)
[2017-12-08 15:14] LABS: Alanine Aminotransferase 40 Units/L (7-52); Albumin 4.1 g/dL (3.5-5.7); Albumin/Globulin Ratio 1.5 (1.1-2.2); Alkaline Phosphatase 92 Units/L (34-104); Aspartate Amino Transferase 23 Units/L (13-39); BUN/Creatinine Ratio 17 (6-26); Bilirubin,Total 0.4 mg/dL (0.3-1.0); Blood Urea Nitrogen 17 mg/dL (8-23); Calcium 9.6 mg/dL (8.6-10.3); Carbon Dioxide 26 mEq/L (23-29); Chloride 104 mEq/L (98-107); Globulin 2.7 g/dL (2.4-3.5); Glucose 104 mg/dL (70-105); Magnesium 1.8 mg/dL (1.6-2.6); Osmolality,Calculated 290 (280-300); Potassium 3.9 mEq/L (3.5-5.1); Sodium 139 mEq/L (136-145); Total Protein 6.8 g/dL (6.4-8.9); eGFR For African Americans > 60 (> 60); eGFR For Non-African Americans > 60 (> 60)
[2017-12-08] MEDS ORDERED: Levofloxacin 750 MG/150 ML 750 MG/150 ML BAG IVPB ONE (15:28)
--- NOTE | 2017-12-08 16:33 | Internal Med History&Physical ---
Date of Encounter: 12/08/17 Time of Encounter: 17:28 Internal Medicine - H&P: HPI Admitted From: Home Plans for Post Hospital Care: Home History of present illness: Mr. Villalobos is a 62 year male with a history COPD not on home oxygen, history of intubation but chronic steroid intake, DVT in 2011 on Xarelto, CAD status post 1 stent in 2016 presents for evaluation of dyspnea that has been progressive in the last few days. Today was further worse therefore decided to come to emergency room for further evaluation. Sulci are treated with nonproductive cough. Patient gets pain in upper trachea during COPD exacerbation is history of tracheitis. On arrival to ER patient was in severe respiratory distress therefore BiPAP was restarted along with loading dose of IV steroid and nebulizer considering COPD exacerbation. Chest x-ray with no acute finding. Eventually patient is started to feel slightly better and BiPAP weaned off and oxygen by nasal cannula 3 L started. Your physician called on- call hospitalists for the admission with the diagnosis of COPD exacerbation with bronchitis. During my evaluation patient is still short of breath especially during current medication and cannot complete the whole sentence otherwise appeared comfortable at rest. Condition denies fever, chills, nausea, vomiting, abdominal pain, chest pain, urinary complaint, diarrhea, constipation, headache, dizziness, tingling or numbness. Past Med Surg Social Fam HX - Past Medical History Medical history: arthritis, COPD, DVT, GERD, hyperlipidemia, hypertension, myocardial infarction Psychiatric history: no psych history - Past Surgical History Surgical History: angioplasty/stent, cataract, orthopedic, other - Social History Smoking Status: Former smoker Smokeless Tobacco Status: No Alcohol use: occasionally Drug use: none - Family History Mother Adopted: No Family Member Ethnicity: Non- Living Status: Hx Family Cardiac Disorders: Yes Hx Family Respiratory Disorders: No Hx Family Cancer: No Hx Family GI Disorders: No Hx Family Endocrine Disorder: No Hx Family Neuromuscular Disorders: No Hx Family Neurologic Disorders: No Hx Family HEENT Disorders: No Hx Family Autoimmune Disorders: No Father Adopted: No Family Member Ethnicity: Non- Living Status: Hx Family Cardiac Disorders: No Hx Family Respiratory Disorders: No Hx Family Cancer: Yes (lung cancer) Hx Family GI Disorders: No Hx Family Endocrine Disorder: No Hx Family Neuromuscular Disorders: No Hx Family Neurologic Disorders: No Hx Family HEENT Disorders: No Hx Family Autoimmune Disorders: No Brother Family Member Ethnicity: Non- Hx Family Respiratory Disorders: Yes (lung cancer) Sister Family Member Ethnicity: Non- Hx Family Neurologic Disorders: Yes (stroke) Son Family Member Ethnicity: Non- Living Status: Still Living Hx Family Cardiac Disorders: No Hx Family Respiratory Disorders: No Hx Family Cancer: No Hx Family GI Disorders: No Hx Family Endocrine Disorder: Yes Hx Family Neuromuscular Disorders: No Hx Family Neurologic Disorders: No Hx Family HEENT Disorders: No Hx Family Autoimmune Disorders: No Internal Medicine - H&P: Meds Fluticasone/Salmeterol [Advair 500-50 Diskus] 1 puff IH BID 04/26/15 [History] Rivaroxaban [Xarelto] 20 mg PO QPM 04/26/15 [History] traZODone [TraZODone] 150 mg PO HS 07/28/15 [History] Atorvastatin Calcium [Lipitor] 80 mg PO HS 06/24/16 [History] Pantoprazole Sodium [Protonix] 40 mg PO DAILY 06/24/16 [History] Albuterol Neb [AccuNeb] 1.25 mg IH Q6H PRN 03/10/17 [History] Clopidogrel [Plavix] 75 mg PO DAILY 03/10/17 [History] predniSONE [PredniSONE] 10 mg PO DAILY 04/12/17 [History] HYDROcodone/Acet 5/325 mg [[place] 5-325 mg] 1 - 2 tab PO Q4H PRN #7 tab 04/30/17 [Rx] Metoprolol XL (24 HR) Succ [Toprol Xl] 50 mg PO DAILY #30 05/03/17 [Rx] 3 Allergy/AdvReac Type Severity Reaction Status Date / Time No Known Allergies Allergy Verified 12/08/17 15:22 All Systems PM: A 10-system review of systems was performed and is negative for pertinent findings except as documented above in the HPI. - Constitutional Vitals: Temp Pulse Resp BP Pulse Ox 98.4 F 106 20 125/109 94 12/08/17 14:17 12/08/17 15:37 12/08/17 15:37 12/08/17 15:37 12/08/17 15:37 Exam: General appearance: Mild respiratory distress, A&O X 3. 3 liters oxygen by nasal cannula . Cannot complete the whole sentence without getting out of breath. Family bedside. Head exam: Atraumatic Eye exam: EOMI, PERRLA ENT exam: Moist oral mucosa Neck nontender, supple Respiratory exam: Bilateral prolonged expiratory wheezes but no crepitation. Decreased breath sounds. Cardiovascular exam: Regular rate and rhythm, no systolic murmur Abdominal exam: Soft, nontender, nondistended, obese. positive bowel sounds Extremities exam: No calf tenderness, no pedal edema Present: Skin-no rash, warm, dry, intact Neurological exam: Alert, awake, oriented 3, CN II-XII intact, no focal deficits. No facial droop. Normal speech. Normal gait. Internal Med - H&P Results - Labs CBC & Chem 7: 12/08/17 14:28 12/08/17 14:28 - Assessment and plan (1) Acute exacerbation of chronic obstructive pulmonary disease (COPD) Current Visit: No Status: Acute Assessment and plan: With bronchitis but no associated systemic sign and symptom. Initial treatment with loading dose of his steroid, breathing treatments and antibiotic is started. Will continue IV steroid, oxygen when necessary to keep SPO2 more than 90% of respiratory comfort. incentive spirometry (2) CAD (coronary artery disease) Current Visit: No Status: Chronic Assessment and plan: Stable. Continue home medicine Qualifiers: Coronary Disease-Associated Artery/Lesion type: unspecified vessel or lesion type [place] vs. transplanted heart: unspecified whether [place] or transplanted heart Associated angina: angina presence unspecified Qualified Code(s): I25.10 - Atherosclerotic heart disease of [place] coronary artery without angina pectoris (3) History of DVT of lower extremity Current Visit: No Status: Chronic Assessment and plan: Continue Xarelto - Time Spent With Patient Total time spent is greater than 50% in coordination of care (as documented) at patient's floor/unit and/or counseling patient:
[2017-12-08] MEDS ORDERED: *HR* HYDROcodone/Acet 5/325 mg TABLET PO PRN (17:43)
[2017-12-08] MEDS ORDERED: Naloxone 0.4 MG/ML INJ IVP PRN (17:52)
[2017-12-08] MEDS: MethylPREDNISolone 40 MG/ML VIAL IVP SCH ×2 (18:06→23:32)
[2017-12-08] MEDS: *HR* Rivaroxaban 10 MG TABLET PO SCH (18:06)
[2017-12-08] MEDS: Ipratropium Neb 0.5 MG NEBULIZER IH SCH (19:27)
[2017-12-08] MEDS: Albuterol 2.5 MG/3 ML NEBULIZER IH SCH (19:27)
[2017-12-08] MEDS: traZODone 50 MG TABLET PO SCH (21:32)
[2017-12-08] MEDS: *HR* OxyCODONE/APAP 5/325 TABLET PO PRN (21:36)
[2017-12-09] MEDS ORDERED: Ketorolac 15 MG/ML VIAL IVP ONE
[2017-12-09] MEDS: Albuterol 2.5 MG/3 ML NEBULIZER IH SCH ×3 (00:27→07:34)
[2017-12-09] MEDS: Ipratropium Neb 0.5 MG NEBULIZER IH SCH ×3 (00:27→07:34)
[2017-12-09] MEDS ORDERED: Acetaminophen 325 MG TABLET PO PRN (01:43)
[2017-12-09] MEDS: MethylPREDNISolone 40 MG/ML VIAL IVP SCH (05:10)
[2017-12-09] MEDS: *HR* OxyCODONE/APAP 5/325 TABLET PO PRN (05:18)
[2017-12-09 05:26] LABS: Basophils % 0.1 %; Hematocrit 36.6 % (37.5-50.1); Hemoglobin 12.2 g/dL (12.9-16.9); Immature Granulocytes % 0.7 % (0-4); Lymphocytes # 0.5 K/mcL (0.6-4.6); Lymphocytes % 5.4 %; Mean Corpuscular HGB Conc 33.3 g/dL (31.6-35.5); Mean Corpuscular Volume 87.1 fL (83.0-100.0); Mean Platelet Volume 9.4 fL (9.4-12.4); Monocytes # 0.1 K/mcL (0.0-1.3); Monocytes % 1.3 %; Neutrophils # 9.2 K/mcL (1.6-8.9); Platelet Count 260 K/mcL (140-400); Red Cell Distribution Width 12.7 % (11.5-14.5); Segmented Neutrophils % 92.5 %
[2017-12-09 05:46] LABS: BUN/Creatinine Ratio 22 (6-26); Blood Urea Nitrogen 22 mg/dL (8-23); Carbon Dioxide 24 mEq/L (23-29); Chloride 103 mEq/L (98-107); Glucose 184 mg/dL (70-105); Osmolality,Calculated 294 (280-300); Potassium 3.8 mEq/L (3.5-5.1); Sodium 138 mEq/L (136-145); eGFR For African Americans > 60 (> 60); eGFR For Non-African Americans > 60 (> 60)
[2017-12-09] MEDS: Metoprolol XL (24 HR) Succ 50 MG TAB.ER.24H PO SCH (08:57)
[2017-12-09] MEDS ORDERED: Levofloxacin 750 MG/150 ML 750 MG/150 ML BAG IVPB SCH (09:00)
--- NOTE | 2017-12-09 09:44 | Pulmonology Consult Note ---
Date of Encounter: 12/09/17 Time of Encounter: 09:43 Assessment and Plan (1) Acute exacerbation of chronic obstructive airways disease Current Visit: No Status: Acute This is a 62-year-old gentleman with a history of COPD who presents with respiratory distress secondary to COPD exacerbation requiring oxygen support. I suspect this is related to upper respiratory tract infection likely of viral etiology. The patient is on systemic IV steroids which is reasonable and consider increasing the dose from 40-60 mg IV steroids daily I suspect are the next 24- 48 hours could transition to by mouth formulation. He does have diffuse wheezing in the lung gomez the harshness and audible wheezing is actually transmitted upper airway sounds without maddy evidence of stridor. The IV formulation of steroids should also be helpful for this Otherwise agree with continuation of. Schedule bronchodilators DuoNeb's every 4 -6 hours with hourly albuterol as needed He is on Advair Diskus at home and so starting budesonide/formoterol 160/4.5 twice a day here is advisable Antibiotics and the form of respiratory fluoroquinolone such as Levaquin empirically with planned to de-escalate/stop in the next 24-48 hours if cultures negative as I suspect this is viral Send sputum culture and viral PCR If this turns out to be a viral infection azithromycin for 5 days to be just as her even more effective as Levaquin Consideration of BiPAP for work of breathing however the patient has severe claustrophobia/PTSD related to this so the overall benefit is dubious Continue supplemental oxygen to keep saturation greater than 80% to around 92% Out of bed to chair and early ambulation and incentive spirometry are all excellent adjunctive measures to decrease V/Q mismatching related to atelectasis Outpatient pulmonary follow-up (2) History of DVT of lower extremity Current Visit: No Status: Chronic Patient has been on anticoagulation for DVT since 2011 it is unclear that he has ever had a trial off this but it would be reasonable to attempt as I do not see any clear evidence of chronic hypercoagulable state or recurrent VTE this can be discussed with his primary care physician (3) Obesity (BMI 35.0-39.9 without comorbidity) Current Visit: No Status: Chronic The patient is morbidly obese I advise weight loss control I have a high pretest probability for obstructive sleep apnea and he would benefit from outpatient polysomnogram although full facial mask made be claustrophobic for him he may tolerate nasal pillows or another style mask so his claustrophobia in of itself would not be a contraindication necessarily History of Present Illness Consult date: 12/09/17 Requesting physician: Allison Redmond Reason for consult: COPD Chief complaint: Difficulty in Breathing History of present illness: This is a 62-year-old gentleman with a history of COPD and prior history of respiratory failure and recurrent "tracheatiti" Patient also appears to be maintained on chronic steroid use. He presented with severe shortness of breath to the emergency department was diagnosed with COPD exacerbation requiring BiPAP for work of breathing. In the days leading up to admission he reports a productive cough of whitish phlegm and chest pain which is like previous episodes of "tracheitis" After administration of bronchodilators antimicrobials and systemic steroids the patient has been able to be maintained on nasal cannula although he remains quite dyspneic with concern of audible wheezing prompting a formal pulmonary consultation. Per medical record he also has a history of DVT in the remote past (2011) which he is maintained on Xarelto Today his states that he still having labored breathing attempted to use BiPAP yesterday and overnight but he has a prior history of clinical claustrophobia/ PTSD and the mask covering his face is unbearable. He denies sore throat or drooling. He is noted to have harsh upper airway sounds when he breathes. He started smoking at age 13 and smoked up to a pack a day but quit 6 years ago Labs reviewed on admission white count was 11.7 which is down to 9.9 today ABG was notable for 7.45/40/112 Complete metabolic panel was notable for a hyperglycemia otherwise unremarkable Chest x-ray which I personally reviewed and interpreted was negative for evidence of infiltrate and essentially no acute cardiopulmonary process Past Med Surg Social Fam HX - Past Medical History Medical history: arthritis, COPD, DVT, GERD, hyperlipidemia, hypertension, myocardial infarction Psychiatric history: no psych history - Past Surgical History Surgical History: angioplasty/stent, cataract, orthopedic, other - Social History Smoking Status: Former smoker Smokeless Tobacco Status: No Alcohol use: occasionally Drug use: none - Family History Mother Adopted: No Family Member Ethnicity: Non- Living Status: Hx Family Cardiac Disorders: Yes Hx Family Respiratory Disorders: No Hx Family Cancer: No Hx Family GI Disorders: No Hx Family Endocrine Disorder: No Hx Family Neuromuscular Disorders: No Hx Family Neurologic Disorders: No Hx Family HEENT Disorders: No Hx Family Autoimmune Disorders: No Father Adopted: No Family Member Ethnicity: Non- Living Status: Hx Family Cardiac Disorders: No Hx Family Respiratory Disorders: No Hx Family Cancer: Yes (lung cancer) Hx Family GI Disorders: No Hx Family Endocrine Disorder: No Hx Family Neuromuscular Disorders: No Hx Family Neurologic Disorders: No Hx Family HEENT Disorders: No Hx Family Autoimmune Disorders: No Brother Family Member Ethnicity: Non- Hx Family Respiratory Disorders: Yes (lung cancer) Sister Family Member Ethnicity: Non- Hx Family Neurologic Disorders: Yes (stroke) Son Family Member Ethnicity: Non- Living Status: Still Living Hx Family Cardiac Disorders: No Hx Family Respiratory Disorders: No Hx Family Cancer: No Hx Family GI Disorders: No Hx Family Endocrine Disorder: Yes Hx Family Neuromuscular Disorders: No Hx Family Neurologic Disorders: No Hx Family HEENT Disorders: No Hx Family Autoimmune Disorders: No Medications and Allergies Fluticasone/Salmeterol [Advair 500-50 Diskus] 1 puff IH BID 04/26/15 [History] Rivaroxaban [Xarelto] 20 mg PO QPM 04/26/15 [History] traZODone [TraZODone] 150 mg PO HS 07/28/15 [History] Atorvastatin Calcium [Lipitor] 80 mg PO HS 06/24/16 [History] Pantoprazole Sodium [Protonix] 40 mg PO DAILY 06/24/16 [History] Albuterol Neb [AccuNeb] 1.25 mg IH Q6H PRN 03/10/17 [History] Clopidogrel [Plavix] 75 mg PO DAILY 03/10/17 [History] predniSONE [PredniSONE] 10 mg PO DAILY 04/12/17 [History] HYDROcodone/Acet 5/325 mg [[place] 5-325 mg] 1 - 2 tab PO Q4H PRN #7 tab 04/30/17 [Rx] Metoprolol XL (24 HR) Succ [Toprol Xl] 50 mg PO DAILY #30 05/03/17 [Rx] 3 Allergy/AdvReac Type Severity Reaction Status Date / Time No Known Allergies Allergy Verified 12/08/17 15:22 All Systems: The remainder of the systems were reviewed and are negative Physical Examination Vital Signs: Vital Signs, Last 4 Hours Temp Pulse Resp BP Pulse Ox 12/09/17 07:34 20 94 12/09/17 07:27 97.3 F L 99 16 132/93 90 General appearance: appears uncomfortable Eyes: nonicteric ENT: oropharynx moist, other (Oropharynx clear neck supple preserved airflow throughout the trachea on auscultation no overt evidence of stridor although he does have harsh transmitted upper airway sounds) Neck: supple Effort: very labored Auscultation: bilateral: diminished breath sounds, wheezes (Expiratory wheezing in all lung gomez) Cardiovascular: regular rate and rhythm Extremities: no cyanosis, no edema, no clubbing Musculoskeletal: no deformities normal mental status, non-focal exam mood appropriate Results - Laboratory Findings CBC and BMP: 12/09/17 05:09 12/09/17 05:09 Abnormal lab findings: Abnormal lab results Hgb 12.2 g/dL (12.9-16.9) L 12/09/17 05:09 Hct 36.6 % (37.5-50.1) L 12/09/17 05:09 Neutrophils # 9.2 K/mcL (1.6-8.9) H 12/09/17 05:09 Lymphocytes # 0.5 K/mcL (0.6-4.6) L 12/09/17 05:09 VBG pH 7.45 pH Units (7.32-7.42) H 12/08/17 14:50 VBG pCO2 40 mmHg (41-51) L 12/08/17 14:50 VBG pO2 112 mmHg (25-50) H 12/08/17 14:50 VBG HCO3 28 mEq/L (21-27) H 12/08/17 14:50 Glucose 184 mg/dL (70-105) H 12/09/17 05:09 POC Glucose 267 mg/dL (70-99) H 12/08/17 20:36 - Diagnostic Findings Chest x-ray: report reviewed, image reviewed - Clinical Findings Intake & Output: Intake & Output 12/08/17 12/09/17 12/09/17 23:59 07:59 15:59 Intake Total 540 / 540 600 / 600 480 / 480 Output Total 400 / 400 150 / 150 Balance 140 / 140 450 / 450 480 / 480 Weight 136.1 kg Consult Discharge Plan - Plan Referrals: Analisa Jimenez, NEONATOLOGIST [Primary Care Provider] -
[2017-12-09] MEDS ORDERED: *HR* Morphine 2 MG/ML SYRINGE IVP ONE (09:46)
[2017-12-09] MEDS: Ipratropium/Albuterol Neb 3 ML IH SCH ×4 (11:00→20:03)
[2017-12-09 12:45] LABS: Adenovirus Not Detected (Not Detect); Coronavirus 229E Not Detected (Not Detect); Coronavirus HKU1 Not Detected (Not Detect); Coronavirus NL63 Not Detected (Not Detect); Coronavirus OC43 Not Detected (Not Detect); Human Metapneumovirus Not Detected (Not Detect); Human Rhinovirus/Enterovirus Not Detected (Not Detect); Influenza A Subtype 2009 H1 Not Detected (Not Detect); Influenza A Untypeable Not Detected (Not Detect); Influenza B Not Detected (Not Detect); Parainfluenza Virus 1 Not Detected (Not Detect); Parainfluenza Virus 2 Not Detected (Not Detect); Parainfluenza Virus 3 Not Detected (Not Detect)
[2017-12-09 12:46] LABS: Bordetella Pertussis Not Detected (Not Detect); Chlamydophila pneumoniae Not Detected (Not Detect); Mycoplasma pneumoniae Not Detected (Not Detect); Parainfluenza Virus 4 Not Detected (Not Detect); Respiratory Syncytial Virus Not Detected (Not Detect)
[2017-12-09] MEDS ORDERED: *HR* Morphine 2 MG/ML SYRINGE IVP PRN (13:26)
[2017-12-09] MEDS: Budesonide/Formoterol 160/4.5 MDI IH SCH ×2 (14:42→20:03)
[2017-12-09] MEDS ORDERED: Albuterol 2.5 MG/3 ML NEBULIZER IH PRN (16:05)
--- NOTE | 2017-12-09 16:15 | Internal Med Progress Note ---
Date of Encounter: 12/09/17 Time of Encounter: 16:13 - Assessment and plan (1) History of DVT of lower extremity Current Visit: No Status: Chronic Assessment and plan: Continue Xarelto Patient has been on anticoagulation for DVT since 2011. Pulmonary recommends discussing with the primary care physician regarding stopping anticoagulation without any clear evidence of chronic hypercoagulable state or recurrent VTE (2) Acute exacerbation of chronic obstructive pulmonary disease (COPD) Current Visit: No Status: Acute Assessment and plan: COPD exacerbation with respiratory distress requiring oxygen. Possible respiratory tract infection of viral etiology but respiratory infection panel is negative We will change Levaquin to azithromycin for 5 day course Continue scheduled duo nebs every 4 hours with hourly albuterol as needed for wheezing. Increase Solu-Medrol to 60 every 8 hours and taper Symbicort 2 puffs by inhaler twice a day Morphine 2 mg IV push every 6 hours when necessary for difficulty in breathing Mobilization with patient out of bed to the chair incentive spirometry Pulmonary consult it and appreciate their input (3) CAD (coronary artery disease) Current Visit: No Status: Chronic Assessment and plan: Stable. Patient without chest pain Continue home medicine Qualifiers: Coronary Disease-Associated Artery/Lesion type: unspecified vessel or lesion type [place] vs. transplanted heart: unspecified whether [place] or transplanted heart Associated angina: angina presence unspecified Qualified Code(s): I25.10 - Atherosclerotic heart disease of [place] coronary artery without angina pectoris (4) Obesity (BMI 35.0-39.9 without comorbidity) Current Visit: No Status: Chronic Assessment and plan: Pulmonary advised weight loss control. He also has a high pretest probability for obstructive sleep apnea and would benefit from outpatient polysomnogram with possible nasal pillows as secondary to claustrophobia he would not tolerate a full facial mask. (5) Throat pain in adult Current Visit: Yes Status: Acute Assessment and plan: Patient reports "trachitis" when he gets a COPD exacerbation. He was requesting Dilaudid. Toradol and Percocet were ineffective per patient report Morphine 2 mg IV push recommended by pulmonology group - Time Spent With Patient Total time spent is greater than 50% in coordination of care (as documented) at patient's floor/unit and/or counseling patient: - Subjective Interval history: Patient is very short of breath at rest. Audible wheezing from the doorway. He states he does not feel well. He denies chest pain, fever, chills, abdominal pain, nausea, or vomiting. He complains of severe "trachitis that only responds to dilaudid". - Constitutional Vitals: Temp Pulse Resp BP Pulse Ox 97.9 F 101 17 121/81 95 12/09/17 16:06 12/09/17 16:06 12/09/17 16:06 12/09/17 16:06 12/09/17 16:06 General appearance: Present: cooperative, mild distress, A&O X 3, pleasant, answers questions appropriately - Head Head exam: Present: atraumatic, normocephalic - Eye Eye exam: Present: PERRL, conjuntiva pink, sclera anicteric Pupils: Present: PERRL - Neck Neck exam general surgery: Present: supple, trachea midline. Absent: lymphadenopathy - Respiratory Respiratory exam: Present: accessory muscle use, decreased breath sounds, prolonged expiratory phase, wheezes. Absent: rales, rhonchi - Cardiovascular Cardiovascular exam: Present: RRR, +S1, +S2. Absent: diastolic murmur, gallop, rubs, systolic murmur - GI/Abdominal GI/Abdominal exam: Present: firm, normal bowel sounds, no peritoneal signs. Absent: distended, tenderness - Extremities Exam Extremities exam: Present: pedal edema, warm, radial pulses palpable and symmetrical. Absent: calf tenderness, cyanotic - Neurological Exam Neurological exam: Present: alert, CN II-XII intact, oriented X3, no focal deficits. Absent: pronater drift, facial droop, speech deficit - Skin Skin exam: Present: dry, intact, warm Internal Medicine: Result - Labs CBC & Chem 7: 12/09/17 05:09 12/09/17 05:09 Labs: Short CBC 12/09/17 Range/Units 05:09 WBC 9.9 (4.3-11.1) K/mcL Hgb 12.2 L (12.9-16.9) g/dL Hct 36.6 L (37.5-50.1) % Plt Count 260 (140-400) K/mcL Neutrophils # 9.2 H (1.6-8.9) K/mcL BMP 12/08/17 12/09/17 18:20 05:09 Sodium 138 Potassium 3.8 Chloride 103 Carbon Dioxide 24 BUN 22 Creatinine 1.02 Glucose 230 H 184 H Calcium 9.0 Consult Discharge Plan - Plan Referrals: Analisa Jimenez, ADELINA [Primary Care Provider] -
[2017-12-09] MEDS: *HR* Rivaroxaban 10 MG TABLET PO SCH (16:54)
[2017-12-09] MEDS: methylPREDNISolone 125 MG/2 ML VIAL IVP SCH ×2 (16:54→23:21)
[2017-12-09] MEDS: *HR* Morphine 2 MG/ML SYRINGE IVP PRN ×2 (16:57→23:35)
[2017-12-09] MEDS: traZODone 50 MG TABLET PO SCH (21:17)
[2017-12-10] MEDS: Ipratropium/Albuterol Neb 3 ML IH SCH ×6 (00:01→22:30)
[2017-12-10] MEDS: *HR* Morphine 2 MG/ML SYRINGE IVP PRN ×3 (05:54→21:17)
[2017-12-10 06:55] LABS: Basophils % 0.1 %; Hematocrit 36.4 % (37.5-50.1); Hemoglobin 11.9 g/dL (12.9-16.9); Immature Granulocytes % 1.1 % (0-4); Lymphocytes # 0.5 K/mcL (0.6-4.6); Lymphocytes % 3.4 %; Mean Corpuscular HGB Conc 32.7 g/dL (31.6-35.5); Mean Corpuscular Hemoglobin 28.6 pg (28.0-33.3); Mean Corpuscular Volume 87.5 fL (83.0-100.0); Mean Platelet Volume 9.4 fL (9.4-12.4); Monocytes # 0.3 K/mcL (0.0-1.3); Monocytes % 2.3 %; Neutrophils # 13.5 K/mcL (1.6-8.9); Platelet Count 261 K/mcL (140-400); Red Blood Count 4.16 M/mcL (4.19-5.50); Red Cell Distribution Width 12.9 % (11.5-14.5); Segmented Neutrophils % 93.1 %
[2017-12-10 07:13] LABS: BUN/Creatinine Ratio 21 (6-26); Blood Urea Nitrogen 20 mg/dL (8-23); Carbon Dioxide 26 mEq/L (23-29); Chloride 104 mEq/L (98-107); Glucose 182 mg/dL (70-105); Osmolality,Calculated 295 (280-300); Sodium 139 mEq/L (136-145); eGFR For African Americans > 60 (> 60); eGFR For Non-African Americans > 60 (> 60)
--- NOTE | 2017-12-10 07:36 | Pulmonology Progress Note ---
Date of Encounter: 12/10/17 Time of Encounter: 07:36 Assessment and Plan (1) Acute exacerbation of chronic obstructive airways disease Current Visit: No Status: Acute Continue IV steroids today with plan to transition in the next 24-48 hours to by mouth for example 40 mg of prednisone to be tapered over 2 weeks to baseline 10 mg home dose Cont Azithro to complete 5 day course Cont DUonebs every 6 hours with prn albuterol as needed hourly con ICS/LABA and he should resume this at d/c [facility] FiO2 to keep saturation greater than 88% F/u Pulmonary clinic (2) History of DVT of lower extremity Current Visit: No Status: Chronic cont LTA for now d/w PCP regarding d/c as he has only had one event unless underlying hypercoagulable state present (3) Obesity (BMI 35.0-39.9 without comorbidity) Current Visit: No Status: Chronic weight loss encouraged. High pretest probability of WILLY needs outpatient f/u with [facility] Pulmonary will sign off thank you for this consultation please call with questions Subjective Principal diagnosis: COPD exacerbation Interval history: Mr Villalobos states that his breathing is a little bit better than yesterday although he still has significant amount of wheezing. Chest/throat pain has improved Objective PUL Vital signs: Last Vital Signs Temp 97.8 F 12/10/17 04:02 Pulse 90 12/10/17 04:02 Resp 16 12/10/17 04:12 BP 134/92 12/10/17 04:02 Pulse Ox 97 12/10/17 04:12 General appearance: no acute distress Effort: mildly labored Auscultation: bilateral: wheezes (Bilateral inspiratory and expiratory wheezes noted) Cardiovascular: regular rate and rhythm Gastrointestinal: normoactive bowel sounds Extremities: no cyanosis, no edema, no clubbing Musculoskeletal: no deformities normal mental status, non-focal exam mood appropriate Results - Laboratory Findings CBC and BMP: 12/10/17 06:23 12/10/17 06:23 Abnormal lab findings: Abnormal lab results WBC 14.5 K/mcL (4.3-11.1) H 12/10/17 06:23 RBC 4.16 M/mcL (4.19-5.50) L 12/10/17 06:23 Hgb 11.9 g/dL (12.9-16.9) L 12/10/17 06:23 Hct 36.4 % (37.5-50.1) L 12/10/17 06:23 Neutrophils # 13.5 K/mcL (1.6-8.9) H 12/10/17 06:23 Lymphocytes # 0.5 K/mcL (0.6-4.6) L 12/10/17 06:23 VBG pH 7.45 pH Units (7.32-7.42) H 12/08/17 14:50 VBG pCO2 40 mmHg (41-51) L 12/08/17 14:50 VBG pO2 112 mmHg (25-50) H 12/08/17 14:50 VBG HCO3 28 mEq/L (21-27) H 12/08/17 14:50 Glucose 182 mg/dL (70-105) H 12/10/17 06:23 POC Glucose 289 mg/dL (70-99) H 12/09/17 20:43 - Clinical Findings Intake & Output: Intake & Output 12/09/17 12/09/17 12/10/17 15:59 23:59 07:59 Intake Total 240 / 240 Output Total 1600 / 1600 690 / 690 Balance -1360 / -1360 -690 / -690 Weight 137.5 kg Consult Discharge Plan - Plan Referrals: Analisa Jimenez, RUG WASHER [Primary Care Provider] -
[2017-12-10] MEDS: Budesonide/Formoterol 160/4.5 MDI IH SCH ×2 (07:45→22:30)
[2017-12-10] MEDS: Metoprolol XL (24 HR) Succ 50 MG TAB.ER.24H PO SCH (08:20)
[2017-12-10] MEDS: *HR* OxyCODONE/APAP 5/325 TABLET PO PRN ×2 (08:20→16:09)
[2017-12-10] MEDS: methylPREDNISolone 125 MG/2 ML VIAL IVP SCH ×3 (08:20→23:44)
--- NOTE | 2017-12-10 11:06 | Internal Med Progress Note ---
Date of Encounter: 12/10/17 Time of Encounter: 11:04 - Assessment and plan (1) History of DVT of lower extremity Current Visit: No Status: Chronic Assessment and plan: Continue Xarelto Patient on anticoagulation for DVT since 2011. Pulmonary recommends discussing with the primary care physician regarding stopping anticoagulation without any clear evidence of chronic hypercoagulable state or recurrent VTE (2) Acute exacerbation of chronic obstructive pulmonary disease (COPD) Current Visit: No Status: Acute Assessment and plan: COPD exacerbation with respiratory distress requiring oxygen. Possible respiratory tract infection of viral etiology but respiratory infection panel is negative continue azithromycin for 5 day course Sscheduled duo nebs every 6 hours with hourly albuterol as needed for wheezing. Solu-Medrol to 60 every 8 hours and in next 24 to 48 hours taper to 40 mg po with taper over 2 weeks to 10mg daily, his regular home dose Symbicort 2 puffs by inhaler twice a day Morphine 2 mg IV push every 6 hours when necessary for difficulty in breathing Mobilization with patient out of bed to the chair Continue incentive spirometry Pulmonary consult and outpatient f/u in clinic (3) CAD (coronary artery disease) Current Visit: No Status: Chronic Assessment and plan: Stable. Patient with no chest pain Continue home medicine Qualifiers: Coronary Disease-Associated Artery/Lesion type: unspecified vessel or lesion type [place] vs. transplanted heart: unspecified whether [place] or transplanted heart Associated angina: angina presence unspecified Qualified Code(s): I25.10 - Atherosclerotic heart disease of [place] coronary artery without angina pectoris (4) Obesity (BMI 35.0-39.9 without comorbidity) Current Visit: No Status: Chronic Assessment and plan: Pulmonary advised weight loss control. He has a high pretest probability for obstructive sleep apnea and would benefit from outpatient polysomnogram with possible nasal pillows as secondary to claustrophobia he would not tolerate a full facial mask. (5) Throat pain in adult Current Visit: Yes Status: Acute Assessment and plan: Patient reports "trachitis" when he gets a COPD exacerbation. He was requesting Dilaudid. Toradol and Percocet were ineffective per patient report Morphine 2 mg IV push recommended by pulmonology group and will continue (6) Leukocytosis Current Visit: Yes Status: Acute Assessment and plan: Likely secondary to steroids, will monitor Afebrile Qualifiers: Leukocytosis type: unspecified Qualified Code(s): D72.829 - Elevated white blood cell count, unspecified - Time Spent With Patient Total time spent is greater than 50% in coordination of care (as documented) at patient's floor/unit and/or counseling patient: - Subjective Interval history: Patient is willing a little better today. He still dyspneic on exertion but his throat pain is better controlled. - Constitutional Vitals: Temp Pulse Resp BP Pulse Ox 97.8 F 92 16 136/86 97 12/10/17 07:43 12/10/17 07:43 12/10/17 08:52 12/10/17 08:52 12/10/17 08:52 General appearance: Present: cooperative, mild distress, A&O X 3, pleasant, answers questions appropriately - Head Head exam: Present: atraumatic, normocephalic - Eye Eye exam: Present: PERRL, conjuntiva pink, sclera anicteric Pupils: Present: PERRL - Neck Neck exam general surgery: Present: supple, trachea midline. Absent: lymphadenopathy - Respiratory Respiratory exam: Present: decreased breath sounds, prolonged expiratory phase, wheezes. Absent: accessory muscle use, rales, rhonchi - Cardiovascular Cardiovascular exam: Present: RRR, +S1, +S2. Absent: diastolic murmur, gallop, rubs, systolic murmur - GI/Abdominal GI/Abdominal exam: Present: normal bowel sounds, soft, no peritoneal signs. Absent: distended, tenderness - Extremities Exam Extremities exam: Present: pedal edema, warm, radial pulses palpable and symmetrical. Absent: calf tenderness, cyanotic - Neurological Exam Neurological exam: Present: alert, CN II-XII intact, oriented X3, no focal deficits. Absent: pronater drift, facial droop, speech deficit - Skin Skin exam: Present: dry, intact, normal color, warm Internal Medicine: Result - Labs CBC & Chem 7: 12/10/17 06:23 12/10/17 06:23 Labs: Short CBC 12/10/17 Range/Units 06:23 WBC 14.5 H (4.3-11.1) K/mcL Hgb 11.9 L (12.9-16.9) g/dL Hct 36.4 L (37.5-50.1) % Plt Count 261 (140-400) K/mcL Neutrophils # 13.5 H (1.6-8.9) K/mcL BMP 12/10/17 06:23 Sodium 139 Potassium 4.0 Chloride 104 Carbon Dioxide 26 BUN 20 Creatinine 0.96 Glucose 182 H Calcium 9.0 Consult Discharge Plan - Plan Referrals: Analisa Jimenez, MANUFACTURING SCHEDULER [Primary Care Provider] -
--- NOTE | 2017-12-10 15:47 | Electrocardiograph Report ---
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
[2017-12-10] MEDS: *HR* Rivaroxaban 10 MG TABLET PO SCH (16:00)
[2017-12-10] MEDS: Azithromycin 250 MG TABLET PO SCH (16:01)
[2017-12-10] MEDS: traZODone 50 MG TABLET PO SCH (21:17)
[2017-12-11] MEDS: Ipratropium/Albuterol Neb 3 ML IH SCH ×4 (04:29→22:52)
[2017-12-11 05:42] LABS: Hematocrit 37.1 % (37.5-50.1); Hemoglobin 12.3 g/dL (12.9-16.9); Mean Corpuscular HGB Conc 33.2 g/dL (31.6-35.5); Mean Corpuscular Hemoglobin 29.4 pg (28.0-33.3); Mean Corpuscular Volume 88.5 fL (83.0-100.0); Mean Platelet Volume 9.5 fL (9.4-12.4); Platelet Count 260 K/mcL (140-400); Red Blood Count 4.19 M/mcL (4.19-5.50); Red Cell Distribution Width 13.1 % (11.5-14.5)
[2017-12-11] MEDS: *HR* Morphine 2 MG/ML SYRINGE IVP PRN ×3 (05:48→18:30)
[2017-12-11 06:02] LABS: BUN/Creatinine Ratio 25 (6-26); Blood Urea Nitrogen 24 mg/dL (8-23); Calcium 8.7 mg/dL (8.6-10.3); Carbon Dioxide 28 mEq/L (23-29); Chloride 104 mEq/L (98-107); Glucose 181 mg/dL (70-105); Osmolality,Calculated 295 (280-300); Potassium 4.5 mEq/L (3.5-5.1); Sodium 138 mEq/L (136-145); eGFR For African Americans > 60 (> 60); eGFR For Non-African Americans > 60 (> 60)
[2017-12-11 07:55] LABS: Mycoplasma pneumoniae IgG 0.07 U/L (<=0.09)
[2017-12-11] MEDS: methylPREDNISolone 125 MG/2 ML VIAL IVP SCH ×3 (08:11→23:34)
[2017-12-11] MEDS: Metoprolol XL (24 HR) Succ 50 MG TAB.ER.24H PO SCH (08:11)
[2017-12-11] MEDS: Budesonide/Formoterol 160/4.5 MDI IH SCH ×2 (10:58→19:51)
--- NOTE | 2017-12-11 16:24 | Internal Med Progress Note ---
Date of Encounter: 12/11/17 Time of Encounter: 16:21 - Assessment and plan (1) History of DVT of lower extremity Current Visit: No Status: Chronic Assessment and plan: Continue Xarelto, has been on anticoagulation for DVT since 2011. Pulmonary recommends discussing with the primary care physician regarding stopping anticoagulation without any clear evidence of chronic hypercoagulable state or recurrent VTE (2) Acute exacerbation of chronic obstructive pulmonary disease (COPD) Current Visit: No Status: Acute Assessment and plan: COPD exacerbation with respiratory distress requiring oxygen. Possible respiratory tract infection of viral etiology but respiratory infection panel is negative continue azithromycin for 5 day course Sscheduled duo nebs every 6 hours with hourly albuterol as needed for wheezing. Solu-Medrol to 60 every 8 hours and in next 24 to 48 hours taper to 40 mg po with taper over 2 weeks to 10mg daily, his regular home dose. Will not taper today Symbicort 2 puffs by inhaler twice a day Morphine 2 mg IV push every 6 hours when necessary for difficulty in breathing Mobilization with patient out of bed to the chair Continue incentive spirometry Pulmonary consult and outpatient f/u in clinic (3) CAD (coronary artery disease) Current Visit: No Status: Chronic Assessment and plan: Stable. Patient has no chest pain Continue home medicine Qualifiers: Coronary Disease-Associated Artery/Lesion type: unspecified vessel or lesion type [place] vs. transplanted heart: unspecified whether redding or transplanted heart Associated angina: angina presence unspecified Qualified Code(s): I25.10 - Atherosclerotic heart disease of [place] coronary artery without angina pectoris (4) Obesity (BMI 35.0-39.9 without comorbidity) Current Visit: No Status: Chronic Assessment and plan: Pulmonary advised patient about weight loss control. He has a high pretest probability for obstructive sleep apnea and would benefit from outpatient polysomnogram with possible nasal pillows as secondary to claustrophobia he would not tolerate a full facial mask. (5) Throat pain in adult Current Visit: Yes Status: Acute Assessment and plan: Patient reports "trachitis" when he gets a COPD exacerbation. He was requesting Dilaudid. Toradol and Percocet were ineffective per patient report Morphine 2 mg IV push recommended by pulmonology group and will continue Will add tessalon to control cough (6) Leukocytosis Current Visit: Yes Status: Acute Assessment and plan: Likely secondary to steroids, will monitor, trending down Afebrile Qualifiers: Leukocytosis type: unspecified Qualified Code(s): D72.829 - Elevated white blood cell count, unspecified (7) Cough Current Visit: Yes Status: Acute Assessment and plan: tessalon - Time Spent With Patient Total time spent is greater than 50% in coordination of care (as documented) at patient's floor/unit and/or counseling patient: - Subjective Interval history: Patient is complaining of cough and continuing sore throat. He states his breathing is not as good today. He is on room air satting well. - Constitutional Vitals: Temp Pulse Resp BP Pulse Ox 98.1 F 85 16 127/82 92 12/11/17 15:03 12/11/17 15:03 12/11/17 15:03 12/11/17 15:03 12/11/17 15:03 General appearance: Present: cooperative, A&O X 3, pleasant, answers questions appropriately - Head Head exam: Present: atraumatic, normocephalic - Eye Eye exam: Present: PERRL, conjuntiva pink, sclera anicteric Pupils: Present: PERRL - Neck Neck exam general surgery: Present: supple, trachea midline. Absent: lymphadenopathy - Respiratory Respiratory exam: Present: decreased breath sounds, prolonged expiratory phase, wheezes. Absent: accessory muscle use, rales, rhonchi - Cardiovascular Cardiovascular exam: Present: RRR, +S1, +S2. Absent: diastolic murmur, gallop, rubs, systolic murmur - GI/Abdominal GI/Abdominal exam: Present: normal bowel sounds, soft, no peritoneal signs. Absent: distended, tenderness - Extremities Exam Extremities exam: Present: pedal edema, warm, radial pulses palpable and symmetrical. Absent: calf tenderness, cyanotic - Neurological Exam Neurological exam: Present: alert, CN II-XII intact, oriented X3, no focal deficits. Absent: pronater drift, facial droop, speech deficit - Skin Skin exam: Present: dry, intact, normal color, warm Internal Medicine: Result - Labs CBC & Chem 7: 12/11/17 05:07 12/11/17 05:07 Labs: Short CBC 12/11/17 Range/Units 05:07 WBC 13.9 H (4.3-11.1) K/mcL Hgb 12.3 L (12.9-16.9) g/dL Hct 37.1 L (37.5-50.1) % Plt Count 260 (140-400) K/mcL BMP 12/11/17 05:07 Sodium 138 Potassium 4.5 Chloride 104 Carbon Dioxide 28 BUN 24 H Creatinine 0.95 Glucose 181 H Calcium 8.7 Consult Discharge Plan - Plan Referrals: Analisa Jimenez, [employer] EXECUTIVE [Primary Care Provider] -
[2017-12-11] MEDS ORDERED: Benzonatate 100 MG CAPSULE PO PRN (16:26)
[2017-12-11] MEDS: Azithromycin 250 MG TABLET PO SCH (18:16)
[2017-12-11] MEDS: *HR* Rivaroxaban 10 MG TABLET PO SCH (18:16)
[2017-12-11] MEDS: Nystatin SUSP 5 ML UD.LIQ PO SCH ×2 (18:22→19:46)
[2017-12-11] MEDS: traZODone 50 MG TABLET PO SCH (19:46)
[2017-12-11] MEDS: *HR* OxyCODONE/APAP 5/325 TABLET PO PRN (23:42)
[2017-12-12] MEDS: *HR* Morphine 2 MG/ML SYRINGE IVP PRN ×3 (00:36→12:38)
[2017-12-12] MEDS: Ipratropium/Albuterol Neb 3 ML IH SCH ×2 (04:08→10:26)
[2017-12-12 05:38] LABS: Basophils % 0.1 %; Hematocrit 35.4 % (37.5-50.1); Hemoglobin 11.7 g/dL (12.9-16.9); Immature Granulocytes % 2.5 % (0-4); Lymphocytes # 0.6 K/mcL (0.6-4.6); Lymphocytes % 4.7 %; Mean Corpuscular HGB Conc 33.1 g/dL (31.6-35.5); Mean Corpuscular Hemoglobin 29.1 pg (28.0-33.3); Mean Corpuscular Volume 88.1 fL (83.0-100.0); Mean Platelet Volume 9.3 fL (9.4-12.4); Monocytes # 0.3 K/mcL (0.0-1.3); Monocytes % 2.7 %; Neutrophils # 10.7 K/mcL (1.6-8.9); Platelet Count 248 K/mcL (140-400); Red Blood Count 4.02 M/mcL (4.19-5.50); Red Cell Distribution Width 12.8 % (11.5-14.5)
[2017-12-12 05:55] LABS: BUN/Creatinine Ratio 24 (6-26); Blood Urea Nitrogen 23 mg/dL (8-23); Calcium 8.3 mg/dL (8.6-10.3); Carbon Dioxide 29 mEq/L (23-29); Chloride 104 mEq/L (98-107); Glucose 185 mg/dL (70-105); Osmolality,Calculated 290 (280-300); Potassium 4.4 mEq/L (3.5-5.1); Sodium 136 mEq/L (136-145); eGFR For African Americans > 60 (> 60); eGFR For Non-African Americans > 60 (> 60)
[2017-12-12] MEDS: Nystatin SUSP 5 ML UD.LIQ PO SCH ×2 (08:31→11:11)
[2017-12-12] MEDS: Metoprolol XL (24 HR) Succ 50 MG TAB.ER.24H PO SCH (08:34)
[2017-12-12] MEDS: methylPREDNISolone 125 MG/2 ML VIAL IVP SCH (08:34)
[2017-12-12] MEDS: Budesonide/Formoterol 160/4.5 MDI IH SCH (10:26)
[2017-12-12 11:11] VITALS: BP 130/83
--- NOTE | 2017-12-12 13:31 | Discharge Summary ---
- NOTES TO OUTPATIENT PROVIDER Notes to Outpatient Provider: Patient to follow-up with PCP within the week. Patient to follow-up in the pulmonary clinic in 2-3 weeks. Will need a obstructive sleep apnea outpatient follow-up with PSG Date of Encounter: 12/12/17 Time of Encounter: 13:27 - Discharge Diagnosis (1) History of DVT of lower extremity Priority: Primary Status: Chronic Comments: Continue anticoagulation for now but per pulmonary should discuss with PCP regarding discontinue patient as he has only had one event unless there is an underlying hypercoagulable state present but is not in the record. (2) Acute exacerbation of chronic obstructive pulmonary disease (COPD) Priority: Primary Status: Acute Comments: Patient we just discharged on a prednisone taper over 2 weeks. Continue azithromycin Continue inhalers Patient has been on room air and has no need for home oxygen Follow-up in the pulmonary clinic in several weeks (3) CAD (coronary artery disease) Priority: Primary Status: Chronic Qualifiers: Coronary Disease-Associated Artery/Lesion type: unspecified vessel or lesion type [place] vs. transplanted heart: unspecified whether [place] or transplanted heart Associated angina: angina presence unspecified Qualified Code(s): I25.10 - Atherosclerotic heart disease of [place] coronary artery without angina pectoris (4) Obesity (BMI 35.0-39.9 without comorbidity) Priority: Primary Status: Chronic Comments: *Modification including weight loss suggested a pulmonary Will need outpatient follow-up for PSG to rule out WILLY (5) Throat pain in adult Priority: Primary Status: Acute Comments: He will present but not as bad as on admission. Nystatin on discharge (6) Leukocytosis Priority: Primary Status: Acute Comments: Secondary to steroid use patient is afebrile Qualifiers: Leukocytosis type: unspecified Qualified Code(s): D72.829 - Elevated white blood cell count, unspecified (7) Cough Priority: Primary Status: Acute Comments: [facility] course: Mr. Villalobos is a 62 year old male with a history of COPD on chronic steroid therapy, previous DVT in 2011 on Xarelto, as well as CAD with 1 stent in 2016. He presented for evaluation of progressive shortness of breath and dyspnea on exertion. He was admitted with COPD exacerbation and a history of tracheitis. He was previously intubated. Pulmonary saw the patient during his stay and recommend follow-up in the clinic within the month. He will need outpatient sleep study to rule out obstructive sleep apnea. He will be discharged on a steroid taper, completion of his azithromycin, nystatin for throat pain and Tessalon Perles for cough. He will resume all his home medications. Per pulmonary consult the patient needs discussed with his PCP the necessity to continue anticoagulation for the DVT. Defer to the primary care physician. All the patient's questions were answered and he feels ready for discharge. Please refer to the assessment and plan for further details of this admission Discharge discussed with: patient, nurse - Time Spent with Patient Total time spent providing and/or coordinating discharge services: Less than 30 minutes - Discharge Medications Prescriptions: Azithromycin [Zithromax] 500 mg PO Q24H 2 Days #4 tablet Benzonatate [Tessalon] 200 mg PO TID PRN 7 Days #21 capsule PRN Reason: Cough Nystatin [Nystatin Suspension] 100,000 units PO QID 5 Days #120 ml predniSONE [PredniSONE] 10 mg PO DAILY #30 tablet Home Medications: Fluticasone/Salmeterol [Advair 500-50 Diskus] 1 puff IH BID 04/26/15 [History] Rivaroxaban [Xarelto] 20 mg PO QPM 04/26/15 [History] traZODone [TraZODone] 150 mg PO HS 07/28/15 [History] Atorvastatin Calcium [Lipitor] 80 mg PO HS 06/24/16 [History] Pantoprazole Sodium [Protonix] 40 mg PO DAILY 06/24/16 [History] Albuterol Neb [AccuNeb] 1.25 mg IH Q6H PRN 03/10/17 [History] Clopidogrel [Plavix] 75 mg PO DAILY 03/10/17 [History] predniSONE [PredniSONE] 10 mg PO DAILY 04/12/17 [History] HYDROcodone/Acet 5/325 mg [[place] 5-325 mg] 1 - 2 tab PO Q4H PRN #7 tab 04/30/17 [Rx] Metoprolol XL (24 HR) Succ [Toprol Xl] 50 mg PO DAILY #30 05/03/17 [Rx] Azithromycin [Zithromax] 500 mg PO Q24H 2 Days #4 tablet 12/12/17 [Rx] Benzonatate [Tessalon] 200 mg PO TID PRN 7 Days #21 capsule 12/12/17 [Rx] Nystatin [Nystatin Suspension] 100,000 units PO QID 5 Days #120 ml 12/12/17 [Rx] predniSONE [PredniSONE] 10 mg PO DAILY #30 tablet 12/12/17 [Rx] Allergies/Adverse Reactions: 3 Allergy/AdvReac Type Severity Reaction Status Date / Time No Known Allergies Allergy Verified 12/08/17 15:22 Date of admission: 12/09/17 16:00 Primary care physician: Analisa Jimenez CNP Discharging clinician: Allison Redmond Anticipated date of discharge: 12/12/17 - Constitutional Vitals: Temp Pulse Resp BP Pulse Ox 98.6 F 92 20 130/83 93 12/12/17 11:11 12/12/17 11:11 12/12/17 11:11 12/12/17 11:11 12/12/17 11:11 General appearance: Present: cooperative, A&O X 3, pleasant, obese, answers questions appropriately - Head Head exam: Present: atraumatic, normocephalic - Eye Eye exam: Present: PERRL, conjuntiva pink, sclera anicteric Pupils: Present: PERRL - Neck Neck exam general surgery: Present: supple, trachea midline. Absent: lymphadenopathy - Respiratory Respiratory exam: Present: decreased breath sounds, prolonged expiratory phase, wheezes. Absent: accessory muscle use, rales, rhonchi Additional comments: Few expiratory wheeze but no bronchospasm on forced expiration - Cardiovascular Cardiovascular exam: Present: RRR, +S1, +S2. Absent: diastolic murmur, gallop, rubs, systolic murmur - GI/Abdominal GI/Abdominal exam: Present: normal bowel sounds, soft, no peritoneal signs. Absent: distended, tenderness - Extremities Exam Extremities exam: Present: warm, radial pulses palpable and symmetrical. Absent : calf tenderness, cyanotic, pedal edema - Neurological Exam Neurological exam: Present: alert, CN II-XII intact, oriented X3, no focal deficits. Absent: pronater drift, facial droop, speech deficit - Skin Skin exam: Present: dry, intact, normal color, warm - Patient Status Disposition: Home, Self-Care Condition: Good Functional capacity at discharge: independent ambulation Overall status at discharge: patient is progressing back to baseline - Discharge Instructions Follow Up With: Analisa Jimenez CNP [Primary Care Provider] - Forms: ED Satisfaction Letter Additional Instructions: Follow-up with pulmonary clinic - Diet and Activity Activity: increase activity as tolerated Diet: advance to your usual diet
== END 2017-12-12 14:05 | disposition home or self-care (01) | DRG 191 ==
LOC: EMEROO 14:11 → 3BNU 14:11
PROVIDERS: ADMIT Family Medicine; ATTEND Family Medicine

== ENCOUNTER 2018-07-08 05:53 | Inpatient (IN) ==
[2018-07-08] MEDS ORDERED: CeFAZolin Syr 3,000MG/30 ML 3,000 MG/30 ML SYRINGE IVPB ONE (06:28)
[2018-07-08] MEDS ORDERED: Albuterol 2.5 MG/3 ML NEBULIZER IH ONE ×2 (06:28→10:01)
[2018-07-08] MEDS ORDERED: Ringers Solution, Lactated 1,000 ML IVC SCH ×2 (06:30→11:23)
--- NOTE | 2018-07-08 06:54 | Anesthesia Evaluation PreOp ---
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 History: Other (migraines) Other Medical History: GERD, Other (obesity) Anesthesia History: No Prior Anesthetic Complications, Past Anesthesia (rotator cuff repair, salivary stone excision, left JEAN CLAUDE) Alcohol Use: occasionally Drug use: none Medications and Allergies Fluticasone/Salmeterol [Advair 500-50 Diskus] 1 puff IH BID 04/26/15 [History] Rivaroxaban [Xarelto] 20 mg PO QPM 04/26/15 [History] traZODone [TraZODone] 150 mg PO HS 07/28/15 [History] Atorvastatin Calcium [Lipitor] 80 mg PO HS 06/24/16 [History] Pantoprazole Sodium [Protonix] 40 mg PO DAILY 06/24/16 [History] Albuterol Neb [AccuNeb] 1.25 mg IH Q6H PRN 03/10/17 [History] Clopidogrel [Plavix] 75 mg PO DAILY 03/10/17 [History] predniSONE [PredniSONE] 10 mg PO DAILY 04/12/17 [History] Metoprolol XL (24 HR) Succ [Toprol Xl] 50 mg PO DAILY #30 05/03/17 [Rx] predniSONE [PredniSONE] 10 mg PO DAILY #30 tablet 12/12/17 [Rx] Rivaroxaban [Xarelto] 10 mg PO DAILY #90 tablet 04/18/18 [Rx] Morphine Immed Rel [Morphine Sulfate] 15 mg PO Q4HR PRN 2 Days #7 tab 05/20/18 [Rx] Allergy/AdvReac Type Severity Reaction Status Date / Time hydrocodone Allergy Itching Unverified 06/29/18 08:32 - Meds/Allergy Pre-op Review Medications Reviewed: Yes Allergies Reviewed: Yes Beta Blockers on Current Med List: Yes (metoprolol) Anesthesia Results - Labs Laboratory Tests 06/29/18 07/04/18 08:40 15:51 Hgb 10.8 L Hct 35.2 L Plt Count 352 BUN 18 Creatinine 0.97 - Imaging EKG: report reviewed (SINUS TACHYCARDIA RIGHT BUNDLE BRANCH BLOCK [120+ ms QRS DURATION, UPRIGHT V1, 40+ ms S IN I/aVL/V4/V5/V6]) Anesthesia Exam Selected Entries 07/08/18 06:46 Temperature 98.0 F Pulse Rate 97 Respiratory Rate 18 Blood Pressure 122/79 O2 Sat by Pulse Oximetry 94 Weight: 142kg BMI 42 - HEENT Pupil (Motor): EOMI Mallampati: II Teeth: Normal Oral Opening: Greater than 3 - SAP DEVELOPER LOC: Oriented SAP DEVELOPER Motor: Normal RUE, Normal LUE, Normal RLE, Normal LLE, Normal Face SAP DEVELOPER Sensory: Normal: RUE, LUE, RLE, LLE, Face - Cardiac Rhythm: Regular Murmur: None - Pulmonary Breath Sounds: bilateral Clear Respiratory Effort: Symmetrical Anesthesia Assess/Plan ASA Score: 3 Level of consciousness: Cooperative, Oriented Anesthetic Plan: General, Regional Nerve Block Regional Nerve Block Plan: Interscalene Monitoring Plan: Standard Monitors Recovery Plan: PACU (agrees to GA and nerve block)
[2018-07-08] MEDS ORDERED: ROPIVACAINE HCL/PF 0.5% 30 ML VIAL ONE ×2 (06:59→07:25)
[2018-07-08] MEDS ORDERED: Bupivacaine/Clonidine Syringe 1 EACH SYRINGE ONE ×2 (07:00→07:25)
[2018-07-08] MEDS ORDERED: LIDOCAINE 1% PF 2 ML AMPUL ONE (07:05)
[2018-07-08] MEDS ORDERED: Ethanol\\Acetic Acid\\Na Ace\\Ben 1,000 ML IRRIG.SOLN IR ONE (07:12)
--- NOTE | 2018-07-08 07:17 | History & Physical Report ---
Date of Encounter: 07/08/18 Time of Encounter: 07:17 24 Hour HP Update - Instructions Instructions: If the History and Physical is less than 30 days old and was completed prior to A.M. admission and or procedure and has NOT been updated on calendar day of procedure please complete this update prior to performing procedure. - Update Patient reports changes in Medical Condition: No Changes in examination, assessment, or condition: No Changes in Medication: No Preop tests/diagnostics Reviewed: Yes Surgery Remains Indicated: Yes Consent for Planned Operative Procedure(s) Verified: Yes
[2018-07-08] MEDS ORDERED: *HR* Midazolam HCl 2 MG/2 ML VIAL ONE (07:19)
[2018-07-08] MEDS ORDERED: *HR* FentaNYL (PF) 100 MCG/2 ML VIAL ONE (07:19)
[2018-07-08] MEDS ORDERED: *HR* Propofol 200 MG/20 ML VIAL IVP ONE ×2 (07:19→08:17)
[2018-07-08] MEDS ORDERED: Lidocaine -MPF 2% 2 ML VIAL ONE (07:23)
[2018-07-08] MEDS ORDERED: Ondansetron 4 MG/2 ML VIAL ONE (07:23)
[2018-07-08] MEDS ORDERED: *HR* Succinylcholine 200 MG/10 ML VIAL IVP ONE (07:23)
[2018-07-08] MEDS ORDERED: Dexamethasone 4 MG/ML VIAL ONE (07:23)
[2018-07-08] MEDS ORDERED: EPHEDrine 50 MG/ML VIAL ONE (08:11)
[2018-07-08] MEDS ORDERED: *HR* Vasopressin 20 UNIT/ML VIAL ONE (08:50)
[2018-07-08] MEDS ORDERED: Acetaminophen IV 1,000 MG/100 ML INFUS..BTL ONE (08:50)
[2018-07-08] MEDS ORDERED: Celecoxib 100 MG CAPSULE PO SCH (09:00)
[2018-07-08] MEDS ORDERED: Tranexamic Acid 1,000 MG/10 ML VIAL ONE (09:12)
[2018-07-08] MEDS ORDERED: *HR* HYDROmorphone (PF) 1 MG/ML SYRINGE IVP PRN (09:28)
[2018-07-08] MEDS ORDERED: Ondansetron 4 MG/2 ML VIAL IVP ONE (09:28)
[2018-07-08] MEDS ORDERED: *HR* OxyCODONE/APAP 5/325 TABLET PO PRN ×2 (09:28→11:23)
--- NOTE | 2018-07-08 09:58 | Physician Discharge Referral ---
Home Health/Hosp Referral Info Transfer to: Home Health - Respiratory Orders Smoking Cessation: Smoking cessation has been advised. For more information, call the [place] Tobacco Quit Line at 9-931-CUSQ-NOW. - Diet/Nutrition Diet/Nutrition Orders: Regular - Activity Activity Orders: Up ad kathy - Services Needed Following services are medically necessary services: Physical Therapy, Occupati onal Therapy Home Care Orders: DISCHARGE INSTRUCTIONS Dr. Freeman Shoulder Replacement Wound Care -Keep wound / incision area clean and dry. -Keep the clear dressing on until follow up. -No baths or swimming until otherwise instructed. -Keep the wound dry until follow up. No submerging the wound under standing water until cleared by your physician (no baths, hot tubs, swimming pools, etc). Sponge baths are the best way to perform personal hygiene while at the same time protecting the wound from moisture. -No scrubbing the wound. You may "pad dry" the wound, but do not rub, as this may open up he wound and pre-dispose to wound infection. -Do not apply lotions or creams to incision site, unless instructed otherwise. -Observe for redness, swelling, or drainage. Please call the clinic immediately if you have fevers, chills with warmth/redness surrounding wound site or if you notice pus drainage from the wound site Activity -Continue the sling and come out for exercises as instructed by the physical therapist. Further therapy instructions will be given at your first follow up appointment. -No driving while on narcotic pain medication. Discharge Pain Medications -You will be given a prescription for pain medication. Wean off as tolerated. Do not wait to take the pain medication until the pain is severe, as it will be difficult to "catch up" once this occurs. The pain medication usually reaches its full effect ~1 hour after ingesting. -Your prescribed pain medication may contain Tylenol. You must be careful not to exceed 4,000 mg (4 g) of Tylenol (or generic equivalent), from all sources, within a single 24-hour period. -Some common side effects of the narcotic pain medications (Percocet, Oxycodone, Vicodin, etc) include nausea and itching. Benadryl is a great over the counter medication that helps calm your stomach, decreases your anxiety levels, and minimizes the itching. You can easily purchase this at your local pharmacy as an [id number] medication. Please abide by the instructions as printed on t-he bottle. If your nausea persists, make sure to take small amounts of crackers or other reduction plant supervisor foods. - Transfer Medications Home Medications: Fluticasone/Salmeterol [Advair 500-50 Diskus] 1 puff IH BID 04/26/15 [History] Rivaroxaban [Xarelto] 20 mg PO QPM 04/26/15 [History] traZODone [TraZODone] 150 mg PO HS 07/28/15 [History] Atorvastatin Calcium [Lipitor] 80 mg PO HS 06/24/16 [History] Pantoprazole Sodium [Protonix] 40 mg PO DAILY 06/24/16 [History] Albuterol Neb [AccuNeb] 1.25 mg IH Q6H PRN 03/10/17 [History] Clopidogrel [Plavix] 75 mg PO DAILY 03/10/17 [History] predniSONE [PredniSONE] 10 mg PO DAILY 04/12/17 [History] Metoprolol XL (24 HR) Succ [Toprol Xl] 50 mg PO DAILY #30 05/03/17 [Rx] predniSONE [PredniSONE] 10 mg PO DAILY #30 tablet 12/12/17 [Rx] Rivaroxaban [Xarelto] 10 mg PO DAILY #90 tablet 04/18/18 [Rx] Morphine Immed Rel [Morphine Sulfate] 15 mg PO Q4HR PRN 2 Days #7 tab 05/20/18 [Rx] Allergies/Adverse Reactions: Allergy/AdvReac Type Severity Reaction Status Date / Time hydrocodone Allergy Itching Unverified 06/29/18 08:32 Certification: Further, I certify that my clinical findings support that this patient is homebound (i.e. absences from home require considerable and taxing effort and are for medical reasons or worship services or infrequently or short duration when for other reasons) because: Homebound Reason: Patient requires assistance of a person or device to safely leave home, Post-surgery restriction and or conditions limit ability to leave home Attestation: My signature below is to certify that this patient is under my care and that I, or nurse practitioner, or a physician's news assistant working with me, has a [id number] encounter with this patient.
[2018-07-08] MEDS ORDERED: Albuterol 2.5 MG/3 ML NEBULIZER ONE (10:02)
--- NOTE | 2018-07-08 10:05 | Orthopedic Operative Note ---
Date of procedure: 07/08/18 Procedure: Procedure: Left reverse total shoulder arthroplasty with open biceps tenodesis Preoperative diagnosis: Left shoulder cuff tear arthropathy Postoperative diagnosis: Same Surgeon: Paco Freeman MD Second Rigger: None Anesthesia: General with regional block EBL: 100 cc Components used: Tornier perform reversed 25 mm +3mm lateralized baseplate, 35x6.5mm center screw. 39 centered glenosphere, Aequalis ascend flex 5bPTC stem, High offset +0 thick tray, Flex 39+6mm poly Complications: none Indications: This is a 63-year-old male with a previous rotator cuff repair who reinjured his shoulder and developed a retear of his supraspinatus and subscapularis. He had a long history of left shoulder pain prior to the injury with arthritis and cuff tear arthropathy confirmed on imaging studies. Pain and limitation in motion has been progressively worsening. 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 The patient has failed conservative treatment and has elected for a left reverse shoulder replacement after failure of nonoperative treatment. The risks and benefits of the procedure were fully explained to the patient. These risks include, but are not limited to, the risk of infection, neurovascular injury, continued pain and stiffness of the shoulder, need for further surgery, DVT, PE, loss of limb and loss of life. The patient did understand all of these risks and wishes to proceed. Informed consent was then obtained. Operative procedure: The patient was brought back to the OR suite by the anesthesia staff. The patient was then placed supine on the operating table and all bony prominences were padded. The anesthesiologist then performed successful general anesthetic for the remainder of the case. The head, neck and airway were secured and protected by anesthesia. The bed was elevated about 30 degrees. The left upper extremity was then prepped and draped in the normal sterile orthopedic fashion and placed in the Trimano arm lopez. Preoperative antibiotics were then given prior to incision. A timeout was performed confirming the correct patient, site and side, procedure to be performed and any allergies. All were in agreement and we did proceed. A standard deltopectoral approach was performed. We dissected down through the skin coagulating any bleeders were encountered. The cephalic vein was then identified and taken laterally with the deltoid. Adhesions were cleared from underneath the deltoid and a brown retractor was placed. The interval between the deltoid and pectoralis was then developed and kolbel retractor was placed. A Darrach retractor was then placed under the acromion. The biceps tendon was exposed and identified, and then released proximally. Soft tissue tenodesis of the remaining biceps was then performed. The lateral border of the conjoined tendon was then identified and a subscapularis release was performed. The subscapularis was released from the rotator interval down the anterior aspect of the humerus. The capsule was then released from the anterior aspect of the humerus around inferiorly to the back of the humerus. The humerus was subluxed anteriorly. The supraspinatus was completely torn from its insertion. Significant cartilage loss was present on the humeral head. Osteophytes were present and removed removed. A humeral osteotomy was then performed, and the humerus was sounded and broached to the appropriate size. Attention was then turned to the glenoid. The humerus was subluxed posteriorly and retractors were placed on the anterior and posterior aspects of the glenoid. There is a superior wear pattern of the glenoid with significant cartilage loss. A 360 degree release of the subscapularis was performed, and the axillary nerve was palpated and protected throughout the case. Labral debridement was then performed. A central guide pin was placed in the appropriate position on the glenoid. Central drill hole was drilled and the glenoid was then reamed in accordance with the aequalis perform reverse shoulder system. The glenoid baseplate was screwed in place and 4 peripheral drill holes were drilled and filled with the appropriate length screws. The final glenosphere was then impacted and the glenoid sphere screw was tightened in place. Attention was turned back to the humerus. The humerus was subluxed back anteriorly and a trial humeral stem, tray and poly trials were placed. Trial humeral reverse trays and poly were then placed sequentially until the most appropriate size was identified. The trial size +6 mm poly was tested and had excellent range of motion, and stability was verified. The final component was assembled on the back table and then inserted, and the shoulder was reduced. Again the shoulder was taken through range of motion and there was excellent range of motion and stability. The deltopectoral interval was tagged with 2-0 surgilon, and the incision was closed with 2-0 stratafix deep and a running 3-0 stratafix subcuticular. Sterile dressing was placed, the arm was placed in a sling and the patient was taken to the PACU in stable condition. There were no complications during the case. Post op plan: The patient will go into the reverse shoulder protocol. Was there an bindery assistant present: No Estimated blood loss (cc): 100
--- NOTE | 2018-07-08 11:01 | Anesthesia Evaluation Post Op ---
Date of Encounter: 07/08/18 Time of Encounter: 10:58 - Vital Signs Vital Signs: Vital Signs/O2 Sat/Glucose, Most Recent Temp Pulse Resp BP Pulse Ox 98.2 F 100 17 119/75 93 07/08/18 10:41 07/08/18 10:41 07/08/18 10:41 07/08/18 10:41 07/08/18 10:41 - Lungs Lungs: Clear Ascult./Percussion - Airway Airway: Non-obstructed - Cardiovascular Regular Rate - Mental Status Mental Status: Alert & Oriented, Answers Appropriately - Pain Pain Scale: 3 - Nausea Vomiting Nausea Vomiting: Not Present - Hydration Hydration: Tolerates oral liquids Notes: 07/08/18 10:58 CXR ordered for dyspnea in PACU s/p total shoulder and supraclavicular nerve block. No pneumothorax noted. Suspect left sided phrenic nerve injury. Patient was placed in sitting position with relief of symptoms and after more time in PACU he states he is breathing much better. - Discharge PostOp Status: Transfer Patient to floor
[2018-07-08] MEDS ORDERED: traMADol 50 MG TABLET PO PRN (11:23)
[2018-07-08] MEDS ORDERED: Albuterol Neb 1.25 MG/3 ML VIAL IH PRN (11:23)
[2018-07-08] MEDS ORDERED: Temazepam 15 MG CAPSULE PO PRN (11:23)
[2018-07-08] MEDS ORDERED: Sennosides 8.6 MG TABLET PO PRN (11:23)
[2018-07-08] MEDS ORDERED: *HR* OxyCODONE Immed Rel 5 MG TABLET PO PRN (11:23)
[2018-07-08] MEDS ORDERED: Naloxone 0.4 MG/ML INJ IVP PRN (11:23)
[2018-07-08] MEDS ORDERED: Ondansetron 4 MG/2 ML VIAL IVP PRN (11:23)
[2018-07-08] MEDS ORDERED: MOM Conc 10 ML UD.LIQ PO PRN (11:23)
[2018-07-08] MEDS ORDERED: ceFAZolin 3,000 MG in 0.9 % Sodium Chloride 100 ML IVPB SCH (16:00)
[2018-07-08 16:34] VITALS: BP 110/70
[2018-07-08] MEDS ORDERED: traZODone 50 MG TABLET PO SCH (21:00)
[2018-07-09] MEDS ORDERED: *HR* Rivaroxaban 10 MG TABLET PO SCH (09:00)
[2018-07-09] MEDS ORDERED: Metoprolol XL (24 HR) Succ 50 MG TAB.ER.24H PO SCH (09:00)
== END 2018-07-08 19:10 | disposition home health service (06) | DRG 483 ==
LOC: SAMDAY 05:53 → 3NENU 11:09
PROVIDERS: ADMIT Orthopaedic Surgery Sports Medicine; ATTEND Orthopaedic Surgery Sports Medicine

== ENCOUNTER 2018-08-21 09:21 | Inpatient (IN) ==
[2018-08-21] MEDS ORDERED: methylPREDNISolone 125 MG/2 ML VIAL IVP ONE (09:26)
[2018-08-21] MEDS ORDERED: Ipratropium/Albuterol Neb 3 ML IH ONE ×2 (09:26→13:41)
--- NOTE | 2018-08-21 09:30 | Emergency Department Note ---
Disposition Clinical Impression: COPD with acute exacerbation Community acquired pneumonia Qualifiers: Laterality: unspecified laterality Qualified Code(s): J18.9 - Pneumonia, unspecified organism Disposition: Admitted As Inpatient Condition: Fair Referrals: Analisa Jimenez CNP [Primary Care Provider] - Time of Disposition: 11:32 SOB HPI - General Stated Complaint: AVIVA Time Seen by Provider: 08/21/18 09:24 Source: patient Mode of arrival: wheelchair Limitations: no limitations Nursing Notes Reviewed: Yes Vital Signs Reviewed: Yes - History of Present Illness Patient presents to the ED with chief complaint of shortness breath. Patient has a history of non-oxygen dependent COPD. States that it started a few days ago but got significantly worse today. He denies any fever but has had a productive brown cough. He has some chest tightness typical of his COPD. No recent antibiotics. Does have a history of ID with one stent in the past, but denies this pain feeling similar. No history of PE, but does have a history of DVTs and is on Xarelto and Plavix. Difficulty breathing. Does get worse with exertion. No fever or chills. Has had body aches. No abdominal pain, nausea, vomiting, diarrhea or rash. Pt Subjective Complaint: shortness of breath - Related Data Home Medications Medication Instructions Recorded Confirmed Fluticasone/Salmeterol [Advair 1 puff IH BID 04/26/15 08/21/18 500-50 Diskus] traZODone [TraZODone] 150 mg PO HS 07/28/15 08/21/18 Atorvastatin Calcium [Lipitor] 80 mg PO HS 06/24/16 08/21/18 Pantoprazole Sodium [Protonix] 40 mg PO DAILY 06/24/16 08/21/18 Albuterol Neb [AccuNeb] 1.25 mg IH Q6H PRN 03/10/17 08/21/18 Clopidogrel [Plavix] 75 mg PO DAILY 03/10/17 08/21/18 predniSONE [PredniSONE] 10 mg PO DAILY 04/12/17 08/21/18 Previous Rx's Medication Instructions Recorded Metoprolol XL (24 HR) Succ [Toprol 50 mg PO DAILY #30 05/03/17 Xl] Rivaroxaban [Xarelto] 10 mg PO DAILY #90 tablet 04/18/18 Allergies Allergy/AdvReac Type Severity Reaction Status Date / Time hydrocodone Allergy Itching Verified 08/21/18 09:55 Review of Systems: As reviewed in the HPI. All other systems reviewed are negative or normal. Past Medical History - Past Medical History Attestation: Yes The following information was validated with the patient. Source: patient Medical history: Reports: arthritis, COPD, DVT, GERD, hyperlipidemia, hypertension, myocardial infarction Surgical history: Reports: angioplasty/stent, cataract, orthopedic, other Psychiatric history: Reports: no psych history - Social History Smoking Status: Former smoker Smokeless Tobacco Status: No Alcohol use: Reports: rarely Drug use: Reports: none Physical Exam CONSTITUTIONAL: [Ill appearing, alert and in no acute distress] EYES: [EOMI, clear conjunctiva, PERRLA] HENT: [Normocephalic, atraumatic, moist mucus membranes, normal oropharynx] NECK: [normal inspection, full ROM, trachea midline, no obvious swelling] PULMONARY: [Moderate respiratory distress with accessory muscle use, diffuse inspiratory and expiratory wheezing, conversationally dyspneic at 1-2 words, no cyanosis CARDIOVASCULAR: [regular rate, regular rhythm, normal heart sounds, no murmurs, distal extremities are warm and well perfused] GASTROINSTESTINAL: [soft, non-tender, non-rigid, non-distended, no guarding, no rebound, normal bowel sounds] GENITOURINARY/RECTAL: [deferred] NEUROLOGIC: [Alert, oriented x3, normal speech, moves all extremities] EXTREMITIES: [Normal inspection, full ROM, no tenderness, no pedal edema, normal capillary refill] MUSCULOSKELETAL: [no gross deformities, atraumatic] SKIN: [No cyanosis, no diaphoresis, normal color, warm, no rash] PSYCHIATRIC: [normal mood and affect] Course Vital Signs Temperature 98.1 F 08/21/18 09:26 Pulse Rate 111 08/21/18 09:26 Respiratory Rate 28 08/21/18 09:26 Blood Pressure 137/93 08/21/18 09:26 O2 Sat by Pulse Oximetry 94 08/21/18 09:26 Temperature 98.1 F 08/21/18 09:26 Pulse Rate 101 08/21/18 11:02 Respiratory Rate 24 08/21/18 11:02 Blood Pressure 131/94 08/21/18 11:02 O2 Sat by Pulse Oximetry 97 08/21/18 11:02 Oxygen Delivery Oxygen Delivery Room Air Shortness of Breath/Dyspnea - Medical Records Medical records reviewed: Yes I reviewed the patient's medical records. - Lab Data Lab results reviewed: Yes I reviewed the patient's lab results. Result diagrams: 08/21/18 09:26 08/21/18 09:26 Lab Results 08/21/18 08/21/18 08/21/18 Range/Units 09:26 09:26 09:26 WBC 16.1 H (4.3-11.1) K/mcL RBC 4.97 (4.19-5.50) M/mcL Hgb 12.7 L (12.9-16.9) g/dL Hct 40.3 (37.5-50.1) % MCV 81.1 L (83.0-100.0) fL MCH 25.6 L (28.0-33.3) pg MCHC 31.5 L (31.6-35.5) g/dL RDW 17.7 H (11.5-14.5) % Plt Count 290 (140-400) K/mcL MPV 9.0 L (9.4-12.4) fL Immature Gran % 0.4 (0-4) % Seg Neutrophils % 79.0 % Lymphocytes % 7.9 % Monocytes % 8.6 % Eosinophils % 3.6 % Basophils % 0.5 % Neutrophils # 12.7 H (1.6-8.9) K/mcL Lymphocytes # 1.3 (0.6-4.6) K/mcL Monocytes # 1.4 H (0.0-1.3) K/mcL Eosinophils # 0.6 (0.0-0.6) K/mcL Basophils # 0.1 (0.0-0.2) K/mcL Sodium 137 (136-145) mEq/L Potassium 3.7 (3.5-5.1) mEq/L Chloride 98 (98-107) mEq/L Carbon Dioxide 30 H (23-29) mEq/L BUN 17 (8-23) mg/dL Creatinine 0.89 (0.70-1.30) mg/dL Est GFR ( Amer) > 60 (> 60) Est GFR (Non-Af Amer) > 60 (> 60) BUN/Creatinine Ratio 19 (6-26) Glucose 168 H (70-105) mg/dL Calculated Osmolality 289 (280-300) Lactic Acid (0.5-2.2) mmol/L Calcium 9.6 (8.6-10.3) mg/dL Troponin I < 0.03 (< 0.04) ng/mL B-Natriuretic Peptide 39 (Less than 100) pg/mL 08/21/18 Range/Units 09:40 WBC (4.3-11.1) K/mcL RBC (4.19-5.50) M/mcL Hgb (12.9-16.9) g/dL Hct (37.5-50.1) % MCV (83.0-100.0) fL MCH (28.0-33.3) pg MCHC (31.6-35.5) g/dL RDW (11.5-14.5) % Plt Count (140-400) K/mcL MPV (9.4-12.4) fL Immature Gran % (0-4) % Seg Neutrophils % % Lymphocytes % % Monocytes % % Eosinophils % % Basophils % % Neutrophils # (1.6-8.9) K/mcL Lymphocytes # (0.6-4.6) K/mcL Monocytes # (0.0-1.3) K/mcL Eosinophils # (0.0-0.6) K/mcL Basophils # (0.0-0.2) K/mcL Sodium (136-145) mEq/L Potassium (3.5-5.1) mEq/L Chloride (98-107) mEq/L Carbon Dioxide (23-29) mEq/L BUN (8-23) mg/dL Creatinine (0.70-1.30) mg/dL Est GFR ( Amer) (> 60) Est GFR (Non-Af Amer) (> 60) BUN/Creatinine Ratio (6-26) Glucose (70-105) mg/dL Calculated Osmolality (280-300) Lactic Acid 1.8 (0.5-2.2) mmol/L Calcium (8.6-10.3) mg/dL Troponin I (< 0.04) ng/mL B-Natriuretic Peptide (Less than 100) pg/mL - Radiology Data Radiology results reviewed: Yes I reviewed the patient's radiology results. - EKG Data EKG attestation: Yes I reviewed and interpreted this EKG. EKG results narrative: Sinus tach, rate 102, chronic right bundle branch block, borderline right axis deviation with no changes from previous Critical Care Time Critical Care Time: Yes Total Critical Care Time: 35 Attestation: I personally spent ___35___ minutes devoted to the care of this critically ill patient. This time excludes the time for billable procedures. Attestation Statement - Attestation Attestation: Patient was seen with resident physician. I reviewed the history, physical, assessment and plan, and agree with the findings. I also personally evaluated this patient and had [id number] time with this patient. 63-year-old male presents emergency Department chief complaint short of breath the last 2 days. Patient states that it feels similar to when he has had pneumonia in the past. He also has a history of COPD. He says he comes in couple times year usually gets better with breathing treatments and antibiotics. He said he tried BiPAP on him in the past and he is claustrophobic and he dislikes it area is not had fevers or chills. No nausea vomiting or diarrhea. Denies complains of shortness of breath. Is also no chest pain. Review of systems as above remainder negative. Physical exam vital signs and a straight tachycardia. Blood pressure and pulse ox are okay. Heart tachycardic regular rhythm. Lungs diffuse wheezing with increased work of breathing. Abdomen obese nontender. Extremities unremarkable. Neurologically intact. Skin no rashes. Psych normal. ED course patient has a history of DVT pneumonia and COPD. We will do workup to exclude palpitations of all the above. Anticipate we will need to admit this patient based on his increased work of breathing on arrival. Hemodynamically he remained stable throughout his stay. Patient has improved with some breathing treatments. X-rays did not reveal anything acute. I think that this is COPD exacerbation with possible early pneumonia. He was started on antibiotics as result of this. Because of his work of breathing he was admitted to the hospitalist service. They were notified as to the need for admission and agreed to accept the patient. I agree with resident physician assessment and plan.
[2018-08-21 09:49] LABS: Basophils # 0.1 K/mcL (0.0-0.2); Basophils % 0.5 %; Eosinophils # 0.6 K/mcL (0.0-0.6); Eosinophils % 3.6 %; Hematocrit 40.3 % (37.5-50.1); Hemoglobin 12.7 g/dL (12.9-16.9); Immature Granulocytes % 0.4 % (0-4); Lymphocytes # 1.3 K/mcL (0.6-4.6); Lymphocytes % 7.9 %; Mean Corpuscular HGB Conc 31.5 g/dL (31.6-35.5); Mean Corpuscular Hemoglobin 25.6 pg (28.0-33.3); Mean Corpuscular Volume 81.1 fL (83.0-100.0); Monocytes # 1.4 K/mcL (0.0-1.3); Monocytes % 8.6 %; Neutrophils # 12.7 K/mcL (1.6-8.9); Platelet Count 290 K/mcL (140-400); Red Blood Count 4.97 M/mcL (4.19-5.50); Red Cell Distribution Width 17.7 % (11.5-14.5)
[2018-08-21] MEDS ORDERED: cefTRIAXone 1,000 MG in 0.9 % Sodium Chloride Mini Bag 100 ML IVPB ONE (09:51)
[2018-08-21] MEDS ORDERED: Azithromycin 500 MG in D5% in Water 250 ML IVPB ONE (09:51)
[2018-08-21 10:11] LABS: BUN/Creatinine Ratio 19 (6-26); Blood Urea Nitrogen 17 mg/dL (8-23); Calcium 9.6 mg/dL (8.6-10.3); Carbon Dioxide 30 mEq/L (23-29); Chloride 98 mEq/L (98-107); Glucose 168 mg/dL (70-105); Osmolality,Calculated 289 (280-300); Potassium 3.7 mEq/L (3.5-5.1); Sodium 137 mEq/L (136-145); Troponin I < 0.03 ng/mL (< 0.04); eGFR For Non-African Americans > 60 (> 60)
[2018-08-21] MEDS: Isovue-370 500 ML INFUS..BTL IV ONE ×2 (10:45→10:46)
--- NOTE | 2018-08-21 13:39 | Internal Med History&Physical ---
Date of Encounter: 08/21/18 Time of Encounter: 14:25 Internal Medicine - H&P: HPI Chief complaint: dyspnea Admitted From: Emergency Dept History of present illness: 63 year old man with COPD (not on home O2, 1-2 flares a year, Hx BiPAP use), CAD (s/p PCI x 1), HTN, DVT, GERD, HL has presented with 2 days of dyspnea, cough, brown sputum, headache, rhinorrhea, sore throat and pleuritic chest pain with coughing and sneezing. Symptoms similar to prior AECOPD. CTA was negative for PE in ER. A 10-point ROS is otherwise negative for dizziness, syncope, exertional chest pain, n,v, abd pain, d, c, dysuria, focal motor deficits, dysarthria or other symptoms unless mentioned elsewhere. # AECOPD # Possible pneumonia - meets SIRS criteria (tachycardia, leukocytosis, tachypnea), clinically not in septic shock - Flu screen negative - Blood culture pending - Check urine antigens - Cont ceftriaxone, azithromycin, Solumedrol, Duonebs shlomo and albuterol nebs prn - Antitussives prn - check ambulatory pulse ox prior to discharge # Hx DVT - Cont Xarelto # CAD / prior PCI # HTN - Cont Plavix, metoprolol XL, atorvastatin - restart losartan when dose known # VTE prophy: Xarelto Past Med Surg Social Fam HX - Past Medical History Medical history: arthritis, COPD, DVT, GERD, hyperlipidemia, hypertension, myocardial infarction Psychiatric history: no psych history - Past Surgical History Surgical History: angioplasty/stent, cataract, orthopedic, other Additional surgical history: shoulder surgery - Social History Smoking Status: Former smoker Smokeless Tobacco Status: No Alcohol use: rarely Drug use: none - Family History Mother Adopted: No Family Member Ethnicity: Non- Living Status: Hx Family Cardiac Disorders: Yes (CHF) Hx Family Respiratory Disorders: No Hx Family Cancer: No Hx Family GI Disorders: No Hx Family Endocrine Disorder: No Hx Family Neuromuscular Disorders: No Hx Family Neurologic Disorders: No Hx Family HEENT Disorders: No Hx Family Autoimmune Disorders: No Father Adopted: No Family Member Ethnicity: Non- Living Status: Hx Family Cardiac Disorders: No Hx Family Respiratory Disorders: No Hx Family Cancer: Yes (lung) Hx Family GI Disorders: No Hx Family Endocrine Disorder: No Hx Family Neuromuscular Disorders: No Hx Family Neurologic Disorders: No Hx Family HEENT Disorders: No Hx Family Autoimmune Disorders: No Brother Family Member Ethnicity: Non- Living Status: Hx Family Respiratory Disorders: Yes (lung cancer) Hx Family Cancer: Yes (lung) Sister Family Member Ethnicity: Non- Hx Family Neurologic Disorders: Yes (stroke) Son Family Member Ethnicity: Non- Living Status: Still Living Hx Family Cardiac Disorders: No Hx Family Respiratory Disorders: No Hx Family Cancer: No Hx Family GI Disorders: No Hx Family Endocrine Disorder: Yes Hx Family Neuromuscular Disorders: No Hx Family Neurologic Disorders: No Hx Family HEENT Disorders: No Hx Family Autoimmune Disorders: No Internal Medicine - H&P: Meds Fluticasone/Salmeterol [Advair 500-50 Diskus] 1 puff IH BID 04/26/15 [History] traZODone [TraZODone] 150 mg PO HS 07/28/15 [History] Atorvastatin Calcium [Lipitor] 80 mg PO HS 06/24/16 [History] Pantoprazole Sodium [Protonix] 40 mg PO DAILY 06/24/16 [History] Albuterol Neb [AccuNeb] 1.25 mg IH Q6H PRN 03/10/17 [History] Clopidogrel [Plavix] 75 mg PO DAILY 03/10/17 [History] predniSONE [PredniSONE] 10 mg PO DAILY 04/12/17 [History] Metoprolol XL (24 HR) Succ [Toprol Xl] 50 mg PO DAILY #30 05/03/17 [Rx] Rivaroxaban [Xarelto] 10 mg PO DAILY #90 tablet 04/18/18 [Rx] Allergy/AdvReac Type Severity Reaction Status Date / Time hydrocodone Allergy Itching Verified 08/21/18 09:55 All Systems PM: A 10-system review of systems was performed and is negative for pertinent findings except as documented above in the HPI. - Constitutional Vitals: Temp Pulse Resp BP Pulse Ox 97.6 F 106 18 136/83 96 08/21/18 12:59 08/21/18 12:59 08/21/18 12:59 08/21/18 12:59 08/21/18 12:59 Exam: alert, awake, not in resp distress not using accessory muscles of respiration no icterus no conjunctival injection no meningismus posterior pharyngeal wall erythema S1, S2, no MRG Fair air entry, prolonged expiration, diffuse wheezing, left basilar coarse crackles Soft, NT, ND, no guarding or rebound no ankle edema alert, oriented, no dysarthria or gross motor deficits Internal Med - H&P Results - Labs CBC & Chem 7: 08/21/18 09:26 08/21/18 09:26 Labs: Short CBC 08/21/18 Range/Units 09:26 WBC 16.1 H (4.3-11.1) K/mcL Hgb 12.7 L (12.9-16.9) g/dL Hct 40.3 (37.5-50.1) % Plt Count 290 (140-400) K/mcL Neutrophils # 12.7 H (1.6-8.9) K/mcL BMP 08/21/18 09:26 Sodium 137 Potassium 3.7 Chloride 98 Carbon Dioxide 30 H BUN 17 Creatinine 0.89 Glucose 168 H Calcium 9.6 Cardiac Enzymes 08/21/18 Range/Units 09:26 Troponin I < 0.03 (< 0.04) ng/mL - Impressions ITS Impressions Chest X-Ray 08/21/18 09:26 IMPRESSION: No acute abnormality. D/ / Deshaun Romo MD / Deshaun Romo MD Interpreting Provider: Deshaun Romo MD Chest CTA 08/21/18 09:27 IMPRESSION: No acute pulmonary embolus. No acute abnormality chest. Coronary atherosclerosis. D/ / Deshaun Romo MD / Deshaun Romo MD Interpreting Provider: Deshaun Romo MD - Assessment and plan (1) COPD exacerbation Current Visit: No Status: Resolved (2) DVT prophylaxis Current Visit: No Status: Acute (3) Acute exacerbation of chronic obstructive airways disease Current Visit: No Status: Acute (4) History of DVT of lower extremity Current Visit: No Status: Chronic (5) Hypertension Current Visit: No Status: Chronic Qualifiers: Hypertension type: essential hypertension Qualified Code(s): I10 - Essential (primary) hypertension (6) CAD (coronary artery disease) Current Visit: No Status: Chronic Qualifiers: Coronary Disease-Associated Artery/Lesion type: unspecified vessel or lesion type [place] vs. transplanted heart: unspecified whether [place] or transplanted heart Associated angina: angina presence unspecified Qualified Code(s): I25 .10 - Atherosclerotic heart disease of [place] coronary artery without angina pectoris (7) Tachycardia Current Visit: No Status: Acute - Time Spent With Patient Total time spent is greater than 50% in coordination of care (as documented) at patient's floor/unit and/or counseling patient:
[2018-08-21] MEDS ORDERED: Albuterol 2.5 MG/3 ML NEBULIZER IH PRN (13:41)
[2018-08-21] MEDS ORDERED: *HR* Rivaroxaban 10 MG TABLET PO SCH (14:45)
[2018-08-21] MEDS ORDERED: GuaiFENesin Liq 200 MG/10 ML UDC GTUBE PRN (14:47)
[2018-08-21] MEDS ORDERED: Benzonatate 100 MG CAPSULE PO PRN (14:47)
[2018-08-21] MEDS: Ipratropium/Albuterol Neb 3 ML IH SCH ×3 (15:51→23:26)
[2018-08-21] MEDS: MethylPREDNISolone 40 MG/ML VIAL IVP SCH ×2 (17:33→23:56)
[2018-08-21] MEDS: traZODone 50 MG TABLET PO SCH (19:38)
[2018-08-22] MEDS: Ipratropium/Albuterol Neb 3 ML IH SCH ×6 (04:05→23:17)
[2018-08-22] MEDS: MethylPREDNISolone 40 MG/ML VIAL IVP SCH (06:29)
[2018-08-22 07:58] LABS: Basophils % 0.1 %; Hemoglobin 11.3 g/dL (12.9-16.9); Lymphocytes # 0.6 K/mcL (0.6-4.6); Lymphocytes % 4.3 %; Mean Corpuscular HGB Conc 31.4 g/dL (31.6-35.5); Mean Corpuscular Hemoglobin 25.2 pg (28.0-33.3); Mean Corpuscular Volume 80.2 fL (83.0-100.0); Mean Platelet Volume 9.4 fL (9.4-12.4); Monocytes # 0.5 K/mcL (0.0-1.3); Monocytes % 3.3 %; Neutrophils # 13.4 K/mcL (1.6-8.9); Platelet Count 294 K/mcL (140-400); Red Blood Count 4.49 M/mcL (4.19-5.50); Red Cell Distribution Width 17.4 % (11.5-14.5); Segmented Neutrophils % 91.3 %
[2018-08-22 08:15] LABS: BUN/Creatinine Ratio 26 (6-26); Blood Urea Nitrogen 21 mg/dL (8-23); Calcium 9.7 mg/dL (8.6-10.3); Carbon Dioxide 26 mEq/L (23-29); Chloride 102 mEq/L (98-107); Glucose 247 mg/dL (70-105); Osmolality,Calculated 293 (280-300); Potassium 3.7 mEq/L (3.5-5.1); Sodium 136 mEq/L (136-145); eGFR For Non-African Americans > 60 (> 60)
[2018-08-22] MEDS: cefTRIAXone 1,000 MG in Water for inj. (sterile) 20 ML 10 ML IVP SCH (09:09)
[2018-08-22] MEDS: Azithromycin 250 MG TABLET PO SCH (09:09)
[2018-08-22] MEDS: Metoprolol XL (24 HR) Succ 50 MG TAB.ER.24H PO SCH (09:09)
[2018-08-22] MEDS ORDERED: *HR* Dextrose 50 % in Water (Syg) 50 ML SYRINGE IVP PRN (10:36)
[2018-08-22] MEDS ORDERED: Dextrose Gel 15 GM/37.5 ML TUBE PO PRN ×2 (10:36)
[2018-08-22] MEDS ORDERED: D5% in Water 1,000 ML IVC PRN (10:36)
--- NOTE | 2018-08-22 12:15 | Internal Med Progress Note ---
Hospitalist Progress Note - Encounter Date of Encounter: 08/22/18 Time of Encounter: 09:40 - Subjective Interval History: Pt was seen at bedside and assessed at 0940. He states that he is feeling better today, but has audible wheezing and moist sounding cough. He denies fevers, chills, nausea, vomiting, diarrhea, abdominal pain or dyspnea. Pt is aware that he will be staying for another day or two, questions answered. - Exam Vitals: Temp Pulse Resp BP Pulse Ox 98.6 F 105 17 125/75 98 08/22/18 11:09 08/22/18 11:08/22/18 11:08/22/18 11:08/22/18 11:09 Exam: General: Pt resting quietly on bed, no distress. Skin: pwd, no rashes, lesions, redness Neurological: Pt is alert and awake, oriented x 3, Speech is clear, PERRLA, EOMI, no nystagmus, no pronator drift. strength equal x 4 extremities HEENT: mucous mumbranes moist, no conjuctival pallor Neck: supple, no tracheal deviation, no lymphadenopathy, tenderness, no thyromegaly Heart: S1S2 heard without gallops, clicks, murmurs, no bradycardia or tachycardia, pt has no peripheral edema, pedal and radial pulses palpable bilaterally. Lungs: Audible wheezing, no rales, or ronchi, respirations are unlabored Abdomen: soft and non tender with bowel sound present, no hepatomegaly. Psych: Normal affect with good eye contact - Assessment and Plan (1) COPD with acute exacerbation Current Visit: Yes Status: Chronic Assessment and Plan: AECOPD with audible wheezing and moist sounding cough. He reports 2 day history of dyspnea, cough with brouwn sputum, headache, rhinorrhea, sore throat and pleuritic chest pain, sneezing. Flu swab negative. Blood cultures pending. Patient is not requiring supplemental O2. Chest x-ray and chest CTA negative Continue nebulizer treatments, Tessalon Perles, guaifenesin, Zithromax by mouth, and by mouth prednisone. 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 Likely due to steroid use, COPD exacerbation. He is afebrile, no tachypnea, he is normotensive. He is afebrile. No signs of sirs or sepsis Continue to monitor labs and vitals (4) CAD (coronary artery disease) Current Visit: Yes Status: Chronic Assessment and Plan: Chronic. Patient has what is pleuritic chest pain that is worse with cough and deep inspiration. Continue Lipitor, Plavix, metoprolol, Xarelto. 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 Continue Xarelto DVT Prophylaxis: As above - Time Spent with Patient Total time spent is greater than 50% in coordination of care (as documented) at patient's floor/unit and/or counseling patient: less than 15 minutes Plan of Care Discussed with: patient Internal Medicine: Result - Labs CBC & Chem 7: 08/22/18 07:28 08/22/18 07:28 Labs: Short CBC 08/22/18 Range/Units 07:28 WBC 14.7 H (4.3-11.1) K/mcL Hgb 11.3 L (12.9-16.9) g/dL Hct 36.0 L (37.5-50.1) % Plt Count 294 (140-400) K/mcL Neutrophils # 13.4 H (1.6-8.9) K/mcL BMP 08/22/18 07:28 Sodium 136 Potassium 3.7 Chloride 102 Carbon Dioxide 26 BUN 21 Creatinine 0.82 Glucose 247 H Calcium 9.7 Consult Discharge Plan - Plan __ (3) Leukocytosis Qualifiers: Leukocytosis type: unspecified Qualified Code(s): D72.829 - Elevated white blood cell count, unspecified (4) CAD (coronary artery disease) Qualifiers: Coronary Disease-Associated Artery/Lesion type: unspecified vessel or lesion type [place] vs. transplanted heart: unspecified whether [place] or transplanted heart Associated angina: angina presence unspecified Qualified Code(s): I25.10 - Atherosclerotic heart disease of [place] coronary artery without angina pectoris
[2018-08-22] MEDS: predniSONE 20 MG TABLET PO SCH (13:28)
[2018-08-22] MEDS: Insulin LISPRO 300 UNITS/3 ML VIAL SQ SCH ×3 (13:50→21:35)
[2018-08-22] MEDS: *HR* Rivaroxaban 10 MG TABLET PO SCH (18:01)
[2018-08-22] MEDS: traZODone 50 MG TABLET PO SCH (21:34)
[2018-08-23] MEDS: Ipratropium/Albuterol Neb 3 ML IH SCH ×6 (05:46→23:57)
[2018-08-23] MEDS: predniSONE 20 MG TABLET PO SCH (07:30)
[2018-08-23] MEDS: Azithromycin 250 MG TABLET PO SCH (07:30)
[2018-08-23] MEDS: Metoprolol XL (24 HR) Succ 50 MG TAB.ER.24H PO SCH (07:30)
[2018-08-23] MEDS: cefTRIAXone 1,000 MG in Water for inj. (sterile) 20 ML 10 ML IVP SCH (07:32)
[2018-08-23] MEDS: Insulin LISPRO 300 UNITS/3 ML VIAL SQ SCH ×4 (07:54→20:51)
[2018-08-23] MEDS: MethylPREDNISolone 40 MG/ML VIAL IVP SCH ×2 (12:15→16:46)
--- NOTE | 2018-08-23 12:18 | Internal Med Progress Note ---
Hospitalist Progress Note - Encounter Date of Encounter: 08/23/18 Time of Encounter: 10:30 - Subjective Interval History: States that he has taken a step back and feels worse than yesterday. No fever/chills. - Exam Vitals: Temp Pulse Resp BP Pulse Ox 98.7 F 99 20 133/81 94 08/23/18 07:45 08/23/18 07:45 08/23/18 11:47 08/23/18 07:45 08/23/18 11:47 Exam: General: mild respiratory distress Heart: S1S2 heard without gallops, clicks, murmurs. Tachycardic Lungs: diffuse wheezing bilaterally Abdomen: soft and non tender - Assessment and Plan (1) COPD with acute exacerbation Current Visit: Yes Status: Acute Assessment and Plan: no evidence of PNA on imaging steroid was tapered to PO Prednisone 40mg yesterday but he reports worsening of his symptoms patient also states that he at times require IV Solumedrol for 3-4 days before having any symptomatic improvement will increase steroid to IV 40mg Q8 continue azithromycin, bronchodilators (2) CAD (coronary artery disease) Current Visit: No Status: Chronic Assessment and Plan: Continue home meds (3) History of DVT of lower extremity Current Visit: Yes Status: Chronic Assessment and Plan: Chronic. Continue Xarelto (4) DVT prophylaxis Current Visit: Yes Status: Acute Assessment and Plan: on Xarelto as above - Time Spent with Patient Total time spent is greater than 50% in coordination of care (as documented) at patient's floor/unit and/or counseling patient: Plan of Care Discussed with: patient Internal Medicine: Result - Labs CBC & Chem 7: 08/22/18 07:28 08/22/18 07:28 Consult Discharge Plan - Plan Referrals: Analisa Jimenez, [employer]PER[employer]OR [Primary Care Provider] - (2) CAD (coronary artery disease) Qualifiers: Coronary Disease-Associated Artery/Lesion type: unspecified vessel or lesion type [place] vs. transplanted heart: unspecified whether [place] or transplanted heart Associated angina: angina presence unspecified Qualified Code(s): I25.10 - Atherosclerotic heart disease of [place] coronary artery without angina pectoris
[2018-08-23] MEDS: *HR* Rivaroxaban 10 MG TABLET PO SCH (16:47)
[2018-08-23] MEDS: traZODone 50 MG TABLET PO SCH (20:51)
[2018-08-23] MEDS: Budesonide/Formoterol 160/4.5 1 PUFF INH IH SCH (20:53)
[2018-08-23] MEDS: Ibuprofen 600 MG TABLET PO PRN (21:05)
[2018-08-24] MEDS: MethylPREDNISolone 40 MG/ML VIAL IVP SCH ×3 (00:13→18:01)
[2018-08-24] MEDS: Ipratropium/Albuterol Neb 3 ML IH SCH ×6 (03:54→23:47)
[2018-08-24 06:25] LABS: Basophils % 0.2 %; Hematocrit 33.1 % (37.5-50.1); Hemoglobin 10.6 g/dL (12.9-16.9); Immature Granulocytes % 1.9 % (0-4); Lymphocytes # 0.8 K/mcL (0.6-4.6); Lymphocytes % 6.4 %; Mean Corpuscular Hemoglobin 25.7 pg (28.0-33.3); Mean Corpuscular Volume 80.3 fL (83.0-100.0); Mean Platelet Volume 9.7 fL (9.4-12.4); Monocytes # 0.5 K/mcL (0.0-1.3); Monocytes % 3.9 %; Neutrophils # 11.3 K/mcL (1.6-8.9); Platelet Count 301 K/mcL (140-400); Red Blood Count 4.12 M/mcL (4.19-5.50); Red Cell Distribution Width 17.8 % (11.5-14.5); Segmented Neutrophils % 87.6 %
[2018-08-24 06:40] LABS: BUN/Creatinine Ratio 27 (6-26); Blood Urea Nitrogen 24 mg/dL (8-23); Calcium 8.8 mg/dL (8.6-10.3); Carbon Dioxide 25 mEq/L (23-29); Chloride 101 mEq/L (98-107); Glucose 249 mg/dL (70-105); Osmolality,Calculated 290 (280-300); Potassium 4.7 mEq/L (3.5-5.1); Sodium 134 mEq/L (136-145); eGFR For Non-African Americans > 60 (> 60)
[2018-08-24] MEDS: Budesonide/Formoterol 160/4.5 1 PUFF INH IH SCH ×2 (07:31→20:37)
[2018-08-24] MEDS: Azithromycin 250 MG TABLET PO SCH (07:55)
[2018-08-24] MEDS: Metoprolol XL (24 HR) Succ 50 MG TAB.ER.24H PO SCH (07:55)
[2018-08-24] MEDS: Insulin LISPRO 300 UNITS/3 ML VIAL SQ SCH ×4 (08:02→20:16)
--- NOTE | 2018-08-24 09:49 | Internal Med Progress Note ---
Hospitalist Progress Note - Encounter Date of Encounter: 08/24/18 Time of Encounter: 08:15 - Subjective Interval History: slight improvement compared to yesterday, less wheezing but continues to cough significantly. No chest pain or fever/chills. - Exam Vitals: Temp Pulse Resp BP Pulse Ox 97.7 F 101 19 129/78 94 08/24/18 08:08 08/24/18 08:08 08/24/18 08:08 08/24/18 08:08 08/24/18 08:08 Exam: General: not in distress at rest, continuously coughing Heart: S1S2 heard without gallops, clicks, murmurs. Normal rate Lungs: End expiratory wheezing bilaterally but improved air entry Abdomen: soft and non tender - Assessment and Plan (1) COPD with acute exacerbation Current Visit: Yes Status: Acute Assessment and Plan: no evidence of PNA on imaging steroid was tapered to PO Prednisone 40mg on 08/22 but he reports worsening of his symptoms patient also states that he at times require IV Solumedrol for 3-4 days before having any symptomatic improvement slight improvement noted on IV 40mg Q8, will try Q12 today continue azithromycin, bronchodilators (2) CAD (coronary artery disease) Current Visit: No Status: Chronic Assessment and Plan: Continue home meds (3) History of DVT of lower extremity Current Visit: Yes Status: Chronic Assessment and Plan: Chronic. Continue Xarelto (4) DVT prophylaxis Current Visit: Yes Status: Acute Assessment and Plan: on Xarelto as above - Time Spent with Patient Total time spent is greater than 50% in coordination of care (as documented) at patient's floor/unit and/or counseling patient: Plan of Care Discussed with: patient Internal Medicine: Result - Labs CBC & Chem 7: 08/24/18 04:47 08/24/18 04:47 Labs: Short CBC 08/24/18 Range/Units 04:47 WBC 12.9 H (4.3-11.1) K/mcL Hgb 10.6 L (12.9-16.9) g/dL Hct 33.1 L (37.5-50.1) % Plt Count 301 (140-400) K/mcL Neutrophils # 11.3 H (1.6-8.9) K/mcL BMP 08/24/18 04:47 Sodium 134 L Potassium 4.7 Chloride 101 Carbon Dioxide 25 BUN 24 H Creatinine 0.88 Glucose 249 H Calcium 8.8 Consult Discharge Plan - Plan Referrals: Analisa Jimenez, WIRE WELDER [Primary Care Provider] - (2) CAD (coronary artery disease) Qualifiers: Coronary Disease-Associated Artery/Lesion type: unspecified vessel or lesion type [place] vs. transplanted heart: unspecified whether [place] or transplanted heart Associated angina: angina presence unspecified Qualified Code(s): I25.10 - Atherosclerotic heart disease of [place] coronary artery without angina pectoris
--- NOTE | 2018-08-24 11:27 | Electrocardiograph Report ---
[place] [id number] Test Date: 2018-08-21 Pat Name: Braxton Harris Department: [id number] Room: 3A23 Gender: M Gaming Associate: : [id number] Requested By: Bassam Trinidad Order Number: [id number] Reading MD: Sawyer Encinas Measurements Intervals [place] Rate: 111 P: 72 MI: 170 QRS: 99 QRSD: 138 T: 9 QT: 361 QTc: 491 Interpretive Statements Sinus tachycardia RBBB and LPFB Minimal ST elevation, lateral leads Electronically Signed On 08-24-2018 11:26:20 EST by Sawyer Encinas
[2018-08-24] MEDS: *HR* Rivaroxaban 10 MG TABLET PO SCH (17:26)
[2018-08-24] MEDS: Ibuprofen 600 MG TABLET PO PRN (20:09)
[2018-08-24] MEDS: traZODone 50 MG TABLET PO SCH (20:16)
[2018-08-25] MEDS: Ipratropium/Albuterol Neb 3 ML IH SCH ×3 (04:32→10:35)
[2018-08-25] MEDS: MethylPREDNISolone 40 MG/ML VIAL IVP SCH (05:36)
[2018-08-25] MEDS: Budesonide/Formoterol 160/4.5 1 PUFF INH IH SCH (07:22)
[2018-08-25] MEDS: Insulin LISPRO 300 UNITS/3 ML VIAL SQ SCH ×2 (08:27→12:08)
[2018-08-25] MEDS: Azithromycin 250 MG TABLET PO SCH (08:28)
[2018-08-25] MEDS: Metoprolol XL (24 HR) Succ 50 MG TAB.ER.24H PO SCH (08:28)
--- NOTE | 2018-08-25 10:09 | Discharge Summary ---
- NOTES TO OUTPATIENT PROVIDER Notes to Outpatient Provider: Patient was admitted for COPD exacerbation. Clinically improved with IV Solu-Medrol, azithromycin, and bronchodilators. Completed 5 days of azithromycin as inpatient and will be discharged home on 7 day steroid taper and pulmonary follow up. Orders not resulted at time of discharge: Pending orders 08/21/18 09:56 Culture,Blood [BC] Stat Date of Encounter: 08/25/18 Time of Encounter: 07:30 - Discharge Diagnosis (1) COPD with acute exacerbation Priority: Primary Status: Acute (2) CAD (coronary artery disease) Priority: Secondary Status: Chronic Qualifiers: Coronary Disease-Associated Artery/Lesion type: unspecified vessel or lesion type [place] vs. transplanted heart: unspecified whether [place] or transplanted heart Associated angina: angina presence unspecified Qualified Code(s): I25.10 - Atherosclerotic heart disease of [place] coronary artery without angina pectoris (3) History of DVT of lower extremity Priority: Secondary Status: Chronic (4) DVT prophylaxis Priority: Secondary Status: Acute Hospital course: Mr. Harris is a 63 year old male with PMHx of COPD was admitted for COPD exacerbation. Clinically improved with IV Solu-Medrol, azithromycin, and bronchodilators. Completed 5 days of azithromycin as inpatient and will be discharged home on 7 day steroid taper and pulmonary follow up. Discharge discussed with: patient, nurse - Time Spent with Patient Total time spent providing and/or coordinating discharge services: 32 mins - Discharge Medications Prescriptions: predniSONE [PredniSONE] 40 mg PO DAILY #10 tablet Tiotropium [Spiriva] 18 mcg IH 0700 #30 capsule Home Medications: Fluticasone/Salmeterol [Advair 500-50 Diskus] 1 puff IH BID 04/26/15 [History] traZODone [TraZODone] 150 mg PO HS 07/28/15 [History] Atorvastatin Calcium [Lipitor] 80 mg PO HS 06/24/16 [History] Pantoprazole Sodium [Protonix] 40 mg PO DAILY 06/24/16 [History] Albuterol Neb [AccuNeb] 1.25 mg IH Q6H PRN 03/10/17 [History] Clopidogrel [Plavix] 75 mg PO DAILY 03/10/17 [History] Metoprolol XL (24 HR) Succ [Toprol Xl] 50 mg PO DAILY #30 05/03/17 [Rx] Rivaroxaban [Xarelto] 10 mg PO DAILY #90 tablet 04/18/18 [Rx] Tiotropium [Spiriva] 18 mcg IH 0700 #30 capsule 08/25/18 [Rx] predniSONE [PredniSONE] 40 mg PO DAILY #10 tablet 08/25/18 [Rx] Allergies/Adverse Reactions: Allergy/AdvReac Type Severity Reaction Status Date / Time hydrocodone Allergy Itching Verified 08/21/18 09:55 Date of admission: 08/21/18 11:56 Primary care physician: Analisa Jimenez CNP Consults: 08/21/18 14:42 Consult to Nurse Navigator [CONS] Routine Comment: - Constitutional Vitals: Temp Pulse Resp BP Pulse Ox 97.8 F 94 18 145/89 93 08/25/18 07:03 08/25/18 07:03 08/25/18 07:21 08/25/18 07:03 08/25/18 07:21 Exam: General: not in distress at rest, continuously coughing Heart: S1S2 heard without gallops, clicks, murmurs. Normal rate Lungs: Minimal end expiratory wheezes with good air entry Abdomen: soft and non tender - Patient Status Disposition: Home, Self-Care Condition: Fair Functional capacity at discharge: independent ambulation Overall status at discharge: patient is progressing back to baseline - Discharge Instructions Instructions: Chronic Obstructive Pulmonary Disease (DC) Follow Up With: Analisa Jimenez CNP [Primary Care Provider] - Benjamin Cesar MD [Partnered Physician] - Forms: ED Satisfaction Letter Additional Instructions: Complete a course of steroids as prescribed before going back to home dose of 10mg QD duoneb Q4 start spiriva follow up with pulmonary as outpatient - Diet and Activity Activity: as per physical therapy Diet: advance to your usual diet
[2018-08-25 11:55] VITALS: BP 140/84
[2018-08-25] MEDS ORDERED: MethylPREDNISolone 40 MG/ML VIAL IVP ONE (15:00)
== END 2018-08-25 14:09 | disposition home or self-care (01) | DRG 191 ==
LOC: 3ANU 09:21 → EMEROOARM 09:21 → OBSVTOIN 11:56 → SUATTDRO 11:56 → 3ANU 12:29
PROVIDERS: ADMIT Internal Medicine; ATTEND Internal Medicine

== ENCOUNTER 2019-05-25 12:05 | Inpatient (IN) ==
[2019-05-25] MEDS ORDERED: methylPREDNISolone 125 MG/2 ML VIAL IVP ONE (12:47)
[2019-05-25] MEDS ORDERED: Ipratropium/Albuterol Neb 3 ML IH ONE ×3 (12:47→16:24)
[2019-05-25 13:35] LABS: Basophils # 0.1 K/mcL (0.0-0.2); Basophils % 0.8 %; Eosinophils # 0.3 K/mcL (0.0-0.6); Eosinophils % 3.4 %; Hematocrit 37.1 % (37.5-50.1); Hemoglobin 11.3 g/dL (12.9-16.9); Immature Granulocytes % 0.4 % (0-4); Lymphocytes # 0.4 K/mcL (0.6-4.6); Lymphocytes % 5.6 %; Mean Corpuscular HGB Conc 30.5 g/dL (31.6-35.5); Mean Corpuscular Hemoglobin 23.3 pg (28.0-33.3); Mean Corpuscular Volume 76.7 fL (83.0-100.0); Mean Platelet Volume 9.5 fL (9.4-12.4); Monocytes # 0.1 K/mcL (0.0-1.3); Monocytes % 1.9 %; Neutrophils # 6.5 K/mcL (1.6-8.9); Platelet Count 335 K/mcL (140-400); Red Blood Count 4.84 M/mcL (4.19-5.50); Red Cell Distribution Width 17.2 % (11.5-14.5); Segmented Neutrophils % 87.9 %; White Blood Count 7.4 K/mcL (4.3-11.1)
[2019-05-25 13:47] LABS: BUN/Creatinine Ratio 14 (6-26); Blood Urea Nitrogen 13 mg/dL (8-23); Calcium 9.7 mg/dL (8.6-10.3); Carbon Dioxide 24 mEq/L (23-29); Chloride 100 mEq/L (98-107); Glucose 232 mg/dL (70-105); Osmolality,Calculated 282 (280-300); Potassium 4.2 mEq/L (3.5-5.1); Sodium 132 mEq/L (136-145); eGFR For African Americans > 60 (> 60); eGFR For Non-African Americans > 60 (> 60)
[2019-05-25 13:48] LABS: Troponin I < 0.03 ng/mL (< 0.04)
[2019-05-25] MEDS ORDERED: Isovue-370 500 ML BOTTLE IVP ONE (14:33)
[2019-05-25] MEDS ORDERED: Ondansetron 4 MG/2 ML VIAL IVP PRN (16:32)
[2019-05-25] MEDS ORDERED: *HR* Promethazine 25 MG/ML VIAL IVP PRN (16:32)
[2019-05-25] MEDS ORDERED: Mag Hydrox/Al Hydrox/Simeth 30 ML UDC PO PRN (16:32)
[2019-05-25] MEDS ORDERED: Acetaminophen 325 MG TABLET PO PRN (16:32)
[2019-05-25] MEDS ORDERED: Naloxone 0.4 MG/ML INJ IVP PRN (16:32)
[2019-05-25] MEDS ORDERED: MOM Conc 10 ML UD.LIQ PO PRN (16:32)
[2019-05-25] MEDS ORDERED: Ipratropium/Albuterol Neb 3 ML IH PRN (16:34)
[2019-05-25] MEDS: *HR* Heparin 5,000 UNIT/ML VIAL SQ SCH (19:02)
[2019-05-25] MEDS: Furosemide 20 MG TABLET PO SCH (19:02)
[2019-05-25] MEDS: Azithromycin 500 MG in 0.9 % Sodium Chloride 250 ML IVPB SCH (19:03)
[2019-05-25] MEDS: Ipratropium/Albuterol Neb 3 ML IH SCH ×2 (19:51→23:45)
[2019-05-25] MEDS: Budesonide/Formoterol 80/4.5 1 PUFF INH IH SCH (19:51)
[2019-05-25 20:03] LABS: Adenovirus Not Detected (Not Detect); Bordetella Pertussis Not Detected (Not Detect); Chlamydophila pneumoniae Not Detected (Not Detect); Coronavirus 229E Not Detected (Not Detect); Coronavirus HKU1 Not Detected (Not Detect); Coronavirus NL63 Not Detected (Not Detect); Coronavirus OC43 Not Detected (Not Detect); Human Metapneumovirus Not Detected (Not Detect); Human Rhinovirus/Enterovirus Not Detected (Not Detect); Influenza A Subtype 2009 H1 Not Detected (Not Detect); Influenza A Untypeable Not Detected (Not Detect); Influenza B Not Detected (Not Detect); Mycoplasma pneumoniae Not Detected (Not Detect); Parainfluenza Virus 1 Not Detected (Not Detect); Parainfluenza Virus 2 Not Detected (Not Detect); Parainfluenza Virus 3 Not Detected (Not Detect); Parainfluenza Virus 4 Not Detected (Not Detect); Respiratory Syncytial Virus Not Detected (Not Detect)
[2019-05-25] MEDS ORDERED: Perflutren Lipid Microsphere 1.3 ML in 0.9 % Sodium Chloride 8.7 ML IVP ONE (20:44)
[2019-05-25] MEDS: traMADol 50 MG TABLET PO PRN (20:52)
[2019-05-25] MEDS ORDERED: Dextrose Gel 15 GM/37.5 ML TUBE PO PRN ×2 (21:58)
[2019-05-25] MEDS ORDERED: D5% in Water 1,000 ML IVC PRN (21:58)
[2019-05-25] MEDS ORDERED: *HR* Dextrose 50 % in Water (Syg) 50 ML SYRINGE IVP PRN (21:58)
[2019-05-25] MEDS: MethylPREDNISolone 40 MG/ML VIAL IVP SCH (22:54)
[2019-05-26] MEDS: Ipratropium/Albuterol Neb 3 ML IH SCH ×6 (03:48→23:47)
[2019-05-26 05:30] LABS: Basophils % 0.1 %; Hematocrit 34.2 % (37.5-50.1); Hemoglobin 10.3 g/dL (12.9-16.9); Immature Granulocytes % 0.4 % (0-4); Lymphocytes # 0.5 K/mcL (0.6-4.6); Lymphocytes % 7.3 %; Mean Corpuscular HGB Conc 30.1 g/dL (31.6-35.5); Mean Corpuscular Hemoglobin 23.2 pg (28.0-33.3); Mean Platelet Volume 9.6 fL (9.4-12.4); Monocytes # 0.3 K/mcL (0.0-1.3); Monocytes % 3.7 %; Neutrophils # 6.2 K/mcL (1.6-8.9); Platelet Count 363 K/mcL (140-400); Red Blood Count 4.44 M/mcL (4.19-5.50); Red Cell Distribution Width 17.2 % (11.5-14.5); Segmented Neutrophils % 88.5 %
[2019-05-26] MEDS: Furosemide 20 MG TABLET PO SCH ×2 (05:45→17:10)
[2019-05-26] MEDS: *HR* Heparin 5,000 UNIT/ML VIAL SQ SCH (05:45)
[2019-05-26 05:46] LABS: BUN/Creatinine Ratio 20 (6-26); Blood Urea Nitrogen 19 mg/dL (8-23); Calcium 9.7 mg/dL (8.6-10.3); Carbon Dioxide 24 mEq/L (23-29); Chloride 104 mEq/L (98-107); Glucose 228 mg/dL (70-105); Osmolality,Calculated 287 (280-300); Potassium 4.1 mEq/L (3.5-5.1); Sodium 134 mEq/L (136-145); eGFR For African Americans > 60 (> 60); eGFR For Non-African Americans > 60 (> 60)
[2019-05-26] MEDS: Budesonide/Formoterol 80/4.5 1 PUFF INH IH SCH (07:57)
[2019-05-26 07:58] LABS: Estimated Average Glucose 177 mg/dl
[2019-05-26] MEDS: MethylPREDNISolone 40 MG/ML VIAL IVP SCH (08:05)
[2019-05-26] MEDS: Metoprolol XL (24 HR) Succ 50 MG TAB.ER.24H PO SCH (08:05)
[2019-05-26] MEDS ORDERED: Dextrose Gel 15 GM/37.5 ML TUBE PO PRN ×2 (08:50)
[2019-05-26] MEDS ORDERED: *HR* Dextrose 50 % in Water (Syg) 50 ML SYRINGE IVP PRN (08:50)
[2019-05-26] MEDS ORDERED: D5% in Water 1,000 ML IVC PRN (08:50)
[2019-05-26] MEDS: *HR* Rivaroxaban 10 MG TABLET PO SCH (09:24)
[2019-05-26] MEDS: Budesonide/Formoterol 160/4.5 1 PUFF INH IH SCH ×2 (11:14→19:57)
[2019-05-26] MEDS: Insulin LISPRO 300 UNITS/3 ML VIAL SQ SCH ×3 (12:28→21:06)
[2019-05-26] MEDS: Tiotropium 18 MCG inhalation IH SCH (16:19)
[2019-05-26] MEDS: methylPREDNISolone 125 MG/2 ML VIAL IVP SCH ×2 (17:10→23:11)
[2019-05-26] MEDS: Azithromycin 500 MG in 0.9 % Sodium Chloride 250 ML IVPB SCH (17:11)
[2019-05-26] MEDS: traMADol 50 MG TABLET PO PRN (21:06)
[2019-05-26] MEDS: traZODone 50 MG TABLET PO SCH (23:11)
[2019-05-27 04:08] LABS: Hematocrit 32.4 % (37.5-50.1); Hemoglobin 9.9 g/dL (12.9-16.9); Mean Corpuscular HGB Conc 30.6 g/dL (31.6-35.5); Mean Corpuscular Hemoglobin 23.9 pg (28.0-33.3); Mean Corpuscular Volume 78.1 fL (83.0-100.0); Mean Platelet Volume 9.4 fL (9.4-12.4); Platelet Count 333 K/mcL (140-400); Red Blood Count 4.15 M/mcL (4.19-5.50); Red Cell Distribution Width 17.2 % (11.5-14.5); White Blood Count 9.5 K/mcL (4.3-11.1)
[2019-05-27 04:28] LABS: BUN/Creatinine Ratio 22 (6-26); Blood Urea Nitrogen 24 mg/dL (8-23); Calcium 9.1 mg/dL (8.6-10.3); Carbon Dioxide 24 mEq/L (23-29); Chloride 104 mEq/L (98-107); Glucose 271 mg/dL (70-105); Osmolality,Calculated 294 (280-300); Potassium 4.4 mEq/L (3.5-5.1); Sodium 135 mEq/L (136-145); eGFR For African Americans > 60 (> 60); eGFR For Non-African Americans > 60 (> 60)
[2019-05-27] MEDS: Ipratropium/Albuterol Neb 3 ML IH SCH ×5 (04:31→20:23)
[2019-05-27] MEDS: Furosemide 20 MG TABLET PO SCH ×2 (05:15→17:14)
[2019-05-27] MEDS: Budesonide/Formoterol 160/4.5 1 PUFF INH IH SCH ×2 (07:46→20:23)
[2019-05-27] MEDS: Tiotropium 18 MCG inhalation IH SCH (07:48)
[2019-05-27] MEDS: Insulin LISPRO 300 UNITS/3 ML VIAL SQ SCH ×4 (09:27→20:38)
[2019-05-27] MEDS: methylPREDNISolone 125 MG/2 ML VIAL IVP SCH ×3 (09:27→22:59)
[2019-05-27] MEDS: Metoprolol XL (24 HR) Succ 50 MG TAB.ER.24H PO SCH (09:27)
[2019-05-27] MEDS: *HR* Rivaroxaban 10 MG TABLET PO SCH (09:27)
[2019-05-27] MEDS: Azithromycin 500 MG in 0.9 % Sodium Chloride 250 ML IVPB SCH (17:14)
[2019-05-27] MEDS: traZODone 50 MG TABLET PO SCH (22:59)
[2019-05-28] MEDS: Ipratropium/Albuterol Neb 3 ML IH SCH ×3 (00:05→07:30)
[2019-05-28 02:15] LABS: Hematocrit 31.8 % (37.5-50.1); Hemoglobin 9.7 g/dL (12.9-16.9); Mean Corpuscular HGB Conc 30.5 g/dL (31.6-35.5); Mean Corpuscular Hemoglobin 23.8 pg (28.0-33.3); Mean Corpuscular Volume 78.1 fL (83.0-100.0); Mean Platelet Volume 9.6 fL (9.4-12.4); Platelet Count 359 K/mcL (140-400); Red Blood Count 4.07 M/mcL (4.19-5.50); Red Cell Distribution Width 17.2 % (11.5-14.5); White Blood Count 10.1 K/mcL (4.3-11.1)
[2019-05-28 02:37] LABS: BUN/Creatinine Ratio 28 (6-26); Blood Urea Nitrogen 35 mg/dL (8-23); Calcium 9.1 mg/dL (8.6-10.3); Carbon Dioxide 25 mEq/L (23-29); Chloride 102 mEq/L (98-107); Glucose 312 mg/dL (70-105); Osmolality,Calculated 300 (280-300); Potassium 4.2 mEq/L (3.5-5.1); Sodium 135 mEq/L (136-145); eGFR For African Americans > 60 (> 60); eGFR For Non-African Americans 59 (> 60)
[2019-05-28] MEDS: Furosemide 20 MG TABLET PO SCH (05:15)
[2019-05-28 06:44] VITALS: BP 153/83
[2019-05-28] MEDS: Tiotropium 18 MCG inhalation IH SCH (07:30)
[2019-05-28] MEDS: Budesonide/Formoterol 160/4.5 1 PUFF INH IH SCH (07:30)
[2019-05-28] MEDS: Metoprolol XL (24 HR) Succ 50 MG TAB.ER.24H PO SCH (07:37)
[2019-05-28] MEDS: methylPREDNISolone 125 MG/2 ML VIAL IVP SCH (07:37)
[2019-05-28] MEDS: Insulin LISPRO 300 UNITS/3 ML VIAL SQ SCH (07:37)
[2019-05-28] MEDS: *HR* Rivaroxaban 10 MG TABLET PO SCH (07:37)
== END 2019-05-28 08:53 | disposition home or self-care (01) | DRG 190 ==
LOC: EMEROOARM 12:05 → 3BNU 12:05
PROVIDERS: ADMIT Internal Medicine; ATTEND Internal Medicine

== ENCOUNTER 2019-09-15 14:48 | Inpatient (IN) ==
[2019-09-15] MEDS ORDERED: Ipratropium/Albuterol Neb 3 ML ONE (14:55)
[2019-09-15] MEDS ORDERED: methylPREDNISolone 125 MG/2 ML VIAL ONE (14:55)
[2019-09-15] MEDS ORDERED: methylPREDNISolone 125 MG/2 ML VIAL IVP ONE (14:56)
[2019-09-15] MEDS ORDERED: Ipratropium/Albuterol Neb 3 ML IH ONE (14:56)
[2019-09-15] MEDS ORDERED: 0.9 % Sodium Chloride 1,000 ML IVC ONE (14:57)
[2019-09-15] MEDS ORDERED: 0.9 % Sodium Chloride 1,000 ML ONE (15:01)
[2019-09-15 15:15] LABS: Basophils # 0.1 K/mcL (0.0-0.2); Basophils % 1.6 %; Eosinophils # 1.3 K/mcL (0.0-0.6); Eosinophils % 16.5 %; Hematocrit 37.1 % (37.5-50.1); Hemoglobin 11.5 g/dL (12.9-16.9); Immature Granulocytes % 0.4 % (0-4); Lymphocytes # 1.5 K/mcL (0.6-4.6); Lymphocytes % 17.8 %; Mean Corpuscular Hemoglobin 23.1 pg (28.0-33.3); Mean Corpuscular Volume 74.6 fL (83.0-100.0); Mean Platelet Volume 9.2 fL (9.4-12.4); Monocytes # 0.9 K/mcL (0.0-1.3); Monocytes % 11.2 %; Neutrophils # 4.3 K/mcL (1.6-8.9); Platelet Count 349 K/mcL (140-400); Red Blood Count 4.97 M/mcL (4.19-5.50); Red Cell Distribution Width 17.3 % (11.5-14.5); Segmented Neutrophils % 52.5 %; White Blood Count 8.1 K/mcL (4.3-11.1)
[2019-09-15 15:27] LABS: VBG HCO3 27 mEq/L (21-27); VBG PCO2 50 mmHg (41-51); VBG PH 7.34 pH Units (7.32-7.42); VBG PO2 72 mmHg (25-50)
[2019-09-15 15:35] LABS: BUN/Creatinine Ratio 12 (6-26); Blood Urea Nitrogen 16 mg/dL (8-23); Carbon Dioxide 27 mEq/L (23-29); Chloride 100 mEq/L (98-107); Glucose 107 mg/dL (70-105); Osmolality,Calculated 282 (280-300); Potassium 4.4 mEq/L (3.5-5.1); Sodium 135 mEq/L (136-145); Troponin I < 0.03 ng/mL (< 0.04); eGFR For African Americans > 60 (> 60); eGFR For Non-African Americans 55 (> 60)
[2019-09-15] MEDS ORDERED: Azithromycin 500 MG in 0.9 % Sodium Chloride 250 ML IVPB ONE (15:44)
[2019-09-15] MEDS ORDERED: Naloxone 0.4 MG/ML INJ IVP PRN (16:55)
[2019-09-15] MEDS ORDERED: Acetaminophen 325 MG TABLET PO PRN (16:55)
[2019-09-15] MEDS ORDERED: Ipratropium Neb 0.5 MG NEBULIZER IH PRN (16:58)
[2019-09-15] MEDS ORDERED: D5% in Water 1,000 ML IVC PRN (17:31)
[2019-09-15] MEDS ORDERED: Dextrose Gel 15 GM/37.5 ML TUBE PO PRN ×2 (17:31)
[2019-09-15] MEDS ORDERED: *HR* Dextrose 50 % in Water (Syg) 50 ML SYRINGE IVP PRN (17:31)
[2019-09-15] MEDS ORDERED: Melatonin 3 MG TABLET PO PRN (17:46)
[2019-09-15] MEDS: Ipratropium/Albuterol Neb 3 ML IH SCH ×2 (18:51→22:36)
[2019-09-15] MEDS: Insulin LISPRO 300 UNITS/3 ML VIAL SQ SCH (20:06)
[2019-09-15] MEDS: *HR* Heparin 5,000 UNIT/ML VIAL SQ SCH (20:07)
[2019-09-15 20:09] LABS: Adenovirus Not Detected (Not Detect); Bordetella Pertussis Not Detected (Not Detect); Chlamydophila pneumoniae Not Detected (Not Detect); Coronavirus 229E Not Detected (Not Detect); Coronavirus HKU1 Not Detected (Not Detect); Coronavirus NL63 Not Detected (Not Detect); Coronavirus OC43 Not Detected (Not Detect); Human Metapneumovirus Not Detected (Not Detect); Human Rhinovirus/Enterovirus Not Detected (Not Detect); Influenza A Subtype 2009 H1 Not Detected (Not Detect); Influenza B Not Detected (Not Detect); Mycoplasma pneumoniae Not Detected (Not Detect); Parainfluenza Virus 1 Not Detected (Not Detect); Parainfluenza Virus 2 Not Detected (Not Detect); Parainfluenza Virus 3 Not Detected (Not Detect); Parainfluenza Virus 4 Not Detected (Not Detect); Respiratory Syncytial Virus Not Detected (Not Detect)
[2019-09-15] MEDS: 0.9 % Sodium Chloride 1,000 ML IVC SCH (20:30)
[2019-09-15] MEDS: Budesonide/Formoterol 160/4.5 1 PUFF INH IH SCH (22:34)
[2019-09-16] MEDS: MethylPREDNISolone 40 MG/ML VIAL IVP SCH ×2 (00:23→07:46)
[2019-09-16] MEDS: Ipratropium/Albuterol Neb 3 ML IH SCH ×6 (04:14→23:23)
[2019-09-16] MEDS: 0.9 % Sodium Chloride 1,000 ML IVC SCH (04:35)
[2019-09-16] MEDS: *HR* Heparin 5,000 UNIT/ML VIAL SQ SCH ×2 (06:03→16:18)
[2019-09-16] MEDS: Budesonide/Formoterol 160/4.5 1 PUFF INH IH SCH ×2 (07:13→20:25)
[2019-09-16] MEDS: Metoprolol XL (24 HR) Succ 50 MG TAB.ER.24H PO SCH (07:46)
[2019-09-16] MEDS: Insulin LISPRO 300 UNITS/3 ML VIAL SQ SCH ×4 (07:47→21:57)
[2019-09-16 08:01] LABS: BUN/Creatinine Ratio 20 (6-26); Blood Urea Nitrogen 16 mg/dL (8-23); Calcium 8.9 mg/dL (8.6-10.3); Carbon Dioxide 23 mEq/L (23-29); Chloride 104 mEq/L (98-107); Glucose 178 mg/dL (70-105); Magnesium 1.7 mg/dL (1.6-2.6); Osmolality,Calculated 290 (280-300); Potassium 4.4 mEq/L (3.5-5.1); Sodium 137 mEq/L (136-145); eGFR For African Americans > 60 (> 60); eGFR For Non-African Americans > 60 (> 60)
[2019-09-16] MEDS: methylPREDNISolone 125 MG/2 ML VIAL IVP SCH (16:17)
[2019-09-16] MEDS: Azithromycin 500 MG in 0.9 % Sodium Chloride 250 ML IVPB SCH (16:18)
[2019-09-16] MEDS ORDERED: MethylPREDNISolone 40 MG/ML VIAL IVP SCH (22:00)
[2019-09-17] MEDS: methylPREDNISolone 125 MG/2 ML VIAL IVP SCH ×3 (01:08→17:12)
[2019-09-17] MEDS: Ipratropium/Albuterol Neb 3 ML IH SCH ×5 (03:27→19:52)
[2019-09-17] MEDS: *HR* Heparin 5,000 UNIT/ML VIAL SQ SCH ×2 (06:19→17:12)
[2019-09-17] MEDS: Budesonide/Formoterol 160/4.5 1 PUFF INH IH SCH ×2 (07:24→19:52)
[2019-09-17] MEDS: Metoprolol XL (24 HR) Succ 50 MG TAB.ER.24H PO SCH (07:44)
[2019-09-17] MEDS: Insulin LISPRO 300 UNITS/3 ML VIAL SQ SCH ×4 (07:45→21:33)
[2019-09-17] MEDS ORDERED: Furosemide 20 MG/2 ML VIAL IVP ONE (09:55)
[2019-09-17] MEDS: Azithromycin 500 MG in 0.9 % Sodium Chloride 250 ML IVPB SCH (17:13)
[2019-09-18] MEDS: methylPREDNISolone 125 MG/2 ML VIAL IVP SCH ×4 (00:18→17:51)
[2019-09-18] MEDS: Ipratropium/Albuterol Neb 3 ML IH SCH ×6 (00:22→20:34)
[2019-09-18] MEDS: *HR* Heparin 5,000 UNIT/ML VIAL SQ SCH ×2 (06:29→17:52)
[2019-09-18] MEDS: Metoprolol XL (24 HR) Succ 50 MG TAB.ER.24H PO SCH (08:23)
[2019-09-18] MEDS: Insulin LISPRO 300 UNITS/3 ML VIAL SQ SCH ×4 (08:24→21:36)
[2019-09-18] MEDS: Budesonide/Formoterol 160/4.5 1 PUFF INH IH SCH ×2 (11:04→20:34)
[2019-09-18] MEDS: Azithromycin 500 MG in 0.9 % Sodium Chloride 250 ML IVPB SCH (17:53)
[2019-09-19] MEDS: methylPREDNISolone 125 MG/2 ML VIAL IVP SCH ×5 (00:15→23:42)
[2019-09-19] MEDS: Ipratropium/Albuterol Neb 3 ML IH SCH ×6 (00:37→20:08)
[2019-09-19 04:40] LABS: Basophils % 0.1 %; Hematocrit 32.8 % (37.5-50.1); Hemoglobin 10.3 g/dL (12.9-16.9); Immature Granulocytes % 0.8 % (0-4); Lymphocytes # 0.4 K/mcL (0.6-4.6); Lymphocytes % 5.2 %; Mean Corpuscular HGB Conc 31.4 g/dL (31.6-35.5); Mean Corpuscular Hemoglobin 23.3 pg (28.0-33.3); Mean Platelet Volume 9.4 fL (9.4-12.4); Monocytes # 0.2 K/mcL (0.0-1.3); Monocytes % 3.2 %; Neutrophils # 6.6 K/mcL (1.6-8.9); Platelet Count 334 K/mcL (140-400); Red Blood Count 4.43 M/mcL (4.19-5.50); Red Cell Distribution Width 16.6 % (11.5-14.5); Segmented Neutrophils % 90.7 %; White Blood Count 7.3 K/mcL (4.3-11.1)
[2019-09-19 04:52] LABS: BUN/Creatinine Ratio 31 (6-26); Blood Urea Nitrogen 29 mg/dL (8-23); Calcium 8.9 mg/dL (8.6-10.3); Carbon Dioxide 23 mEq/L (23-29); Chloride 106 mEq/L (98-107); Glucose 225 mg/dL (70-105); Osmolality,Calculated 293 (280-300); Potassium 4.1 mEq/L (3.5-5.1); Sodium 135 mEq/L (136-145); eGFR For African Americans > 60 (> 60); eGFR For Non-African Americans > 60 (> 60)
[2019-09-19] MEDS: *HR* Heparin 5,000 UNIT/ML VIAL SQ SCH ×2 (05:51→17:46)
[2019-09-19] MEDS: Budesonide/Formoterol 160/4.5 1 PUFF INH IH SCH ×2 (07:15→20:08)
[2019-09-19] MEDS: Insulin LISPRO 300 UNITS/3 ML VIAL SQ SCH ×4 (07:59→20:59)
[2019-09-19] MEDS: Metoprolol XL (24 HR) Succ 50 MG TAB.ER.24H PO SCH (07:59)
[2019-09-19] MEDS: Azithromycin 500 MG in 0.9 % Sodium Chloride 250 ML IVPB SCH (17:45)
[2019-09-20] MEDS: Ipratropium/Albuterol Neb 3 ML IH SCH ×7 (00:03→23:01)
[2019-09-20] MEDS: methylPREDNISolone 125 MG/2 ML VIAL IVP SCH ×2 (05:49→12:04)
[2019-09-20] MEDS: *HR* Heparin 5,000 UNIT/ML VIAL SQ SCH ×2 (05:49→18:27)
[2019-09-20] MEDS: Budesonide/Formoterol 160/4.5 1 PUFF INH IH SCH ×2 (07:13→19:53)
[2019-09-20] MEDS: Insulin LISPRO 300 UNITS/3 ML VIAL SQ SCH ×4 (08:30→20:59)
[2019-09-20] MEDS: Metoprolol XL (24 HR) Succ 50 MG TAB.ER.24H PO SCH (08:30)
[2019-09-20] MEDS: Azithromycin 500 MG in 0.9 % Sodium Chloride 250 ML IVPB SCH (18:26)
[2019-09-20] MEDS: predniSONE 20 MG TABLET PO SCH (20:58)
[2019-09-21 01:06] LABS: Hematocrit 33.4 % (37.5-50.1); Hemoglobin 10.3 g/dL (12.9-16.9); Mean Corpuscular HGB Conc 30.8 g/dL (31.6-35.5); Mean Corpuscular Hemoglobin 23.6 pg (28.0-33.3); Mean Corpuscular Volume 76.6 fL (83.0-100.0); Mean Platelet Volume 9.7 fL (9.4-12.4); Platelet Count 365 K/mcL (140-400); Red Blood Count 4.36 M/mcL (4.19-5.50); Red Cell Distribution Width 16.3 % (11.5-14.5); White Blood Count 9.7 K/mcL (4.3-11.1)
[2019-09-21 01:35] LABS: BUN/Creatinine Ratio 31 (6-26); Blood Urea Nitrogen 30 mg/dL (8-23); Calcium 8.7 mg/dL (8.6-10.3); Carbon Dioxide 25 mEq/L (23-29); Chloride 103 mEq/L (98-107); Glucose 219 mg/dL (70-105); Osmolality,Calculated 293 (280-300); Potassium 3.9 mEq/L (3.5-5.1); Sodium 135 mEq/L (136-145); eGFR For African Americans > 60 (> 60); eGFR For Non-African Americans > 60 (> 60)
[2019-09-21] MEDS: Ipratropium/Albuterol Neb 3 ML IH SCH ×2 (04:09→07:48)
[2019-09-21] MEDS: *HR* Heparin 5,000 UNIT/ML VIAL SQ SCH (05:15)
[2019-09-21 06:52] VITALS: BP 149/88
[2019-09-21] MEDS: Budesonide/Formoterol 160/4.5 1 PUFF INH IH SCH (07:48)
[2019-09-21] MEDS: Metoprolol XL (24 HR) Succ 50 MG TAB.ER.24H PO SCH (08:03)
[2019-09-21] MEDS: predniSONE 20 MG TABLET PO SCH (08:04)
[2019-09-21] MEDS: Insulin LISPRO 300 UNITS/3 ML VIAL SQ SCH (08:04)
== END 2019-09-21 10:56 | disposition home or self-care (01) | DRG 191 ==
LOC: EMEROOARM 14:48 → 3BNU 14:48 → SUATTDRO 16:45 → 3BNU 17:19 → SUATTDRO 09-17 10:16
PROVIDERS: ADMIT Internal Medicine; ATTEND Internal Medicine

== ENCOUNTER 2020-11-08 14:06 | Inpatient (IN) ==
[2020-11-08] MEDS ORDERED: methylPREDNISolone 125 MG/2 ML VIAL IVP ONE (14:27)
[2020-11-08] MEDS ORDERED: Ipratropium/Albuterol Neb 3 ML IH ONE ×2 (14:27→16:59)
[2020-11-08 14:33] LABS: Basophils # 0.1 K/mcL (0.0-0.2); Basophils % 0.9 %; Eosinophils # 0.2 K/mcL (0.0-0.6); Eosinophils % 1.5 %; Hematocrit 45.6 % (37.5-50.1); Hemoglobin 15.2 g/dL (12.9-16.9); Immature Granulocytes % 0.4 % (0-4); Lymphocytes % 8.5 %; Mean Corpuscular HGB Conc 33.3 g/dL (31.6-35.5); Mean Corpuscular Hemoglobin 29.6 pg (28.0-33.3); Mean Corpuscular Volume 88.9 fL (83.0-100.0); Mean Platelet Volume 9.4 fL (9.4-12.4); Monocytes # 0.8 K/mcL (0.0-1.3); Monocytes % 7.2 %; Neutrophils # 9.3 K/mcL (1.6-8.9); Platelet Count 296 K/mcL (140-400); Red Blood Count 5.13 M/mcL (4.19-5.50); Segmented Neutrophils % 81.5 %; White Blood Count 11.5 K/mcL (4.3-11.1)
[2020-11-08 14:49] LABS: BUN/Creatinine Ratio 19 (6-26); Blood Urea Nitrogen 20 mg/dL (8-23); Calcium 10.1 mg/dL (8.6-10.3); Carbon Dioxide 27 mEq/L (23-29); Chloride 96 mEq/L (98-107); Glucose 115 mg/dL (70-105); Osmolality,Calculated 282 (280-300); Potassium 4.1 mEq/L (3.5-5.1); Sodium 134 mEq/L (136-145); eGFR For African Americans > 60 (> 60); eGFR For Non-African Americans > 60 (> 60)
[2020-11-08 15:23] LABS: Troponin I < 0.03 ng/mL (< 0.04)
[2020-11-08] MEDS ORDERED: Isovue-370 500 ML BOTTLE IVP ONE (15:31)
[2020-11-08 15:32] LABS: Adenovirus Not Detected (Not Detect); Bordetella Pertussis Not Detected (Not Detect); Chlamydophila pneumoniae Not Detected (Not Detect); Coronavirus 229E Not Detected (Not Detect); Coronavirus HKU1 Not Detected (Not Detect); Coronavirus NL63 Not Detected (Not Detect); Coronavirus OC43 Not Detected (Not Detect); Human Metapneumovirus Not Detected (Not Detect); Human Rhinovirus/Enterovirus Not Detected (Not Detect); Influenza A Subtype 2009 H1 Not Detected (Not Detect); Influenza B Not Detected (Not Detect); Mycoplasma pneumoniae Not Detected (Not Detect); Parainfluenza Virus 1 Not Detected (Not Detect); Parainfluenza Virus 2 Not Detected (Not Detect); Parainfluenza Virus 3 Not Detected (Not Detect); Parainfluenza Virus 4 Not Detected (Not Detect); Respiratory Syncytial Virus Not Detected (Not Detect); SARS-CoV-2 Not Detected (Not Detect)
[2020-11-08 15:36] LABS: Bilirubin,Urine Negative (Negative); Blood,Urine Negative (Negative); Clarity,Urine Clear (Clear); Color,Urine Yellow (Yellow); Glucose,Urine (UA) Normal (Normal); Hyaline Casts,Urine Moderate per lpf (None Seen); Ketones,Urine Negative (Negative); Leukocyte Esterase,Urine Small (Negative); Mucus,Urine Few per lpf (None-Few); Nitrite,Urine Negative (Negative); Protein,Urine 50 mg/dL (Neg-Trace); Squamous Epithelial Cell,Urine Few per hpf (None-Few); Transitional Epi Cells,Urine Few per hpf (None-Few); Urobilinogen,Urine Normal (Normal)
[2020-11-08] MEDS ORDERED: Azithromycin 500 MG in 0.9 % Sodium Chloride 250 ML IVPB ONE (17:00)
[2020-11-08 17:28] LABS: ABG Base Excess 3 mEq/L (-2 to 3); ABG HCO3 25 mEq/L (21-27); ABG Oxygen Saturation 100 % (95-98); ABG PCO2 28 mmHg (35-45); ABG PH 7.55 pH Units (7.32-7.45); ABG PO2 207 mmHg (85-104); ABG TCO2 26 mEq/L (20-26)
[2020-11-08] MEDS ORDERED: Acetaminophen 325 MG TABLET PO PRN (17:36)
[2020-11-08] MEDS ORDERED: Naloxone 0.4 MG/ML INJ IVP PRN (17:36)
[2020-11-08] MEDS ORDERED: Albuterol 2.5 MG/3 ML NEBULIZER IH PRN (17:41)
[2020-11-08] MEDS ORDERED: D5% in Water 1,000 ML IVC PRN (18:55)
[2020-11-08] MEDS ORDERED: Dextrose Gel 15 GM/37.5 ML TUBE PO PRN ×2 (18:55)
[2020-11-08] MEDS ORDERED: *HR* Dextrose 50 % in Water (Vial) 50 ML VIAL IVP PRN (18:55)
[2020-11-08] MEDS: Budesonide/Formoterol 160/4.5 1 PUFF INH IH SCH (20:34)
[2020-11-08] MEDS: Ipratropium/Albuterol Neb 3 ML IH SCH ×2 (20:34→23:57)
[2020-11-08] MEDS: Insulin LISPRO 300 UNITS/3 ML VIAL SUBQ SCH (20:39)
[2020-11-08] MEDS: *HR* Heparin 5,000 UNIT/ML VIAL SQ SCH (20:42)
[2020-11-08] MEDS: MethylPREDNISolone 40 MG/ML VIAL IVP SCH (20:42)
[2020-11-09] MEDS ORDERED: MethylPREDNISolone 40 MG/ML VIAL IVP SCH
[2020-11-09] MEDS ORDERED: hydrOXYzine pamoate 25 MG CAPSULE PO PRN (03:29)
[2020-11-09 03:41] LABS: Basophils % 0.1 %; Hematocrit 39.2 % (37.5-50.1); Immature Granulocytes % 0.4 % (0-4); Lymphocytes # 0.4 K/mcL (0.6-4.6); Lymphocytes % 4.2 %; Mean Corpuscular HGB Conc 33.7 g/dL (31.6-35.5); Mean Corpuscular Hemoglobin 29.9 pg (28.0-33.3); Mean Corpuscular Volume 88.7 fL (83.0-100.0); Mean Platelet Volume 9.7 fL (9.4-12.4); Monocytes # 0.1 K/mcL (0.0-1.3); Monocytes % 1.3 %; Neutrophils # 8.6 K/mcL (1.6-8.9); Platelet Count 274 K/mcL (140-400); Red Blood Count 4.42 M/mcL (4.19-5.50); Red Cell Distribution Width 13.9 % (11.5-14.5); White Blood Count 9.1 K/mcL (4.3-11.1)
[2020-11-09 03:42] LABS: Hemoglobin 13.2 g/dL (12.9-16.9)
[2020-11-09 04:01] LABS: BUN/Creatinine Ratio 28 (6-26); Blood Urea Nitrogen 28 mg/dL (8-23); Calcium 9.5 mg/dL (8.6-10.3); Carbon Dioxide 23 mEq/L (23-29); Chloride 100 mEq/L (98-107); Glucose 199 mg/dL (70-105); Osmolality,Calculated 289 (280-300); Potassium 3.8 mEq/L (3.5-5.1); Sodium 134 mEq/L (136-145); eGFR For African Americans > 60 (> 60); eGFR For Non-African Americans > 60 (> 60)
[2020-11-09] MEDS: Ipratropium/Albuterol Neb 3 ML IH SCH ×6 (04:34→23:30)
[2020-11-09] MEDS: MethylPREDNISolone 40 MG/ML VIAL IVP SCH ×2 (05:23→16:57)
[2020-11-09] MEDS: *HR* Heparin 5,000 UNIT/ML VIAL SQ SCH ×2 (05:23→16:57)
[2020-11-09] MEDS: Budesonide/Formoterol 160/4.5 1 PUFF INH IH SCH ×2 (07:51→19:59)
[2020-11-09] MEDS ORDERED: predniSONE 20 MG TABLET PO SCH (08:00)
[2020-11-09] MEDS: Insulin LISPRO 300 UNITS/3 ML VIAL SUBQ SCH ×4 (08:07→19:34)
[2020-11-09] MEDS: *HR* OxyCODONE/APAP 5/325 TABLET PO SCH (08:07)
[2020-11-09] MEDS: Azithromycin 500 MG in 0.9 % Sodium Chloride 250 ML IVPB SCH (08:08)
[2020-11-09] MEDS: traZODone 50 MG TABLET PO SCH (08:08)
[2020-11-09] MEDS ORDERED: Azithromycin 250 MG TABLET PO SCH (09:00)
[2020-11-09] MEDS ORDERED: Tiotropium 10 INH DOSE IH SCH (09:00)
[2020-11-09] MEDS: Metoprolol XL (24 HR) Succ 50 MG TAB.ER.24H PO SCH (16:57)
[2020-11-09] MEDS ORDERED: Benzonatate 100 MG CAPSULE PO PRN (20:00)
[2020-11-10] MEDS: Ipratropium/Albuterol Neb 3 ML IH SCH ×5 (04:27→20:39)
[2020-11-10] MEDS: *HR* Heparin 5,000 UNIT/ML VIAL SQ SCH ×2 (05:19→17:13)
[2020-11-10] MEDS: MethylPREDNISolone 40 MG/ML VIAL IVP SCH ×3 (05:19→21:41)
[2020-11-10] MEDS: Budesonide/Formoterol 160/4.5 1 PUFF INH IH SCH ×2 (07:47→20:39)
[2020-11-10] MEDS: *HR* OxyCODONE/APAP 5/325 TABLET PO SCH (08:05)
[2020-11-10] MEDS: Metoprolol XL (24 HR) Succ 50 MG TAB.ER.24H PO SCH ×2 (08:05→17:13)
[2020-11-10] MEDS: Insulin LISPRO 300 UNITS/3 ML VIAL SUBQ SCH ×4 (08:06→21:22)
[2020-11-10] MEDS: traZODone 50 MG TABLET PO SCH ×2 (08:06→21:40)
[2020-11-10] MEDS: Azithromycin 500 MG in 0.9 % Sodium Chloride 250 ML IVPB SCH (08:06)
[2020-11-11] MEDS: Ipratropium/Albuterol Neb 3 ML IH SCH ×7 (00:48→23:32)
[2020-11-11 02:29] LABS: Basophils % 0.1 %; Hematocrit 39.9 % (37.5-50.1); Hemoglobin 12.8 g/dL (12.9-16.9); Immature Granulocytes % 0.7 % (0-4); Lymphocytes # 0.5 K/mcL (0.6-4.6); Lymphocytes % 4.7 %; Mean Corpuscular HGB Conc 32.1 g/dL (31.6-35.5); Mean Corpuscular Hemoglobin 29.1 pg (28.0-33.3); Mean Corpuscular Volume 90.7 fL (83.0-100.0); Mean Platelet Volume 9.7 fL (9.4-12.4); Monocytes # 0.3 K/mcL (0.0-1.3); Monocytes % 3.1 %; Neutrophils # 9.4 K/mcL (1.6-8.9); Platelet Count 281 K/mcL (140-400); Red Cell Distribution Width 14.3 % (11.5-14.5); Segmented Neutrophils % 91.4 %; White Blood Count 10.3 K/mcL (4.3-11.1)
[2020-11-11 02:46] LABS: BUN/Creatinine Ratio 27 (6-26); Blood Urea Nitrogen 26 mg/dL (8-23); Calcium 9.3 mg/dL (8.6-10.3); Carbon Dioxide 25 mEq/L (23-29); Chloride 105 mEq/L (98-107); Glucose 172 mg/dL (70-105); Osmolality,Calculated 293 (280-300); Potassium 4.4 mEq/L (3.5-5.1); Sodium 137 mEq/L (136-145); eGFR For African Americans > 60 (> 60); eGFR For Non-African Americans > 60 (> 60)
[2020-11-11] MEDS: MethylPREDNISolone 40 MG/ML VIAL IVP SCH ×3 (06:54→20:18)
[2020-11-11] MEDS: *HR* Heparin 5,000 UNIT/ML VIAL SQ SCH ×2 (06:54→17:00)
[2020-11-11] MEDS: Budesonide/Formoterol 160/4.5 1 PUFF INH IH SCH ×2 (07:38→19:45)
[2020-11-11] MEDS: *HR* OxyCODONE/APAP 5/325 TABLET PO SCH (08:06)
[2020-11-11] MEDS: Metoprolol XL (24 HR) Succ 50 MG TAB.ER.24H PO SCH ×2 (08:07→16:57)
[2020-11-11] MEDS: Insulin LISPRO 300 UNITS/3 ML VIAL SUBQ SCH ×4 (08:14→20:18)
[2020-11-11] MEDS: Azithromycin 500 MG in 0.9 % Sodium Chloride 250 ML IVPB SCH (08:16)
[2020-11-11] MEDS ORDERED: Furosemide 20 MG/2 ML VIAL IVP ONE (12:58)
[2020-11-11] MEDS: traZODone 50 MG TABLET PO SCH (20:18)
[2020-11-12] MEDS: Ipratropium/Albuterol Neb 3 ML IH SCH ×6 (03:32→23:21)
[2020-11-12] MEDS: MethylPREDNISolone 40 MG/ML VIAL IVP SCH ×3 (04:45→20:28)
[2020-11-12] MEDS: *HR* Heparin 5,000 UNIT/ML VIAL SQ SCH ×2 (04:45→16:35)
[2020-11-12] MEDS: Budesonide/Formoterol 160/4.5 1 PUFF INH IH SCH ×2 (07:37→20:12)
[2020-11-12] MEDS: Insulin LISPRO 300 UNITS/3 ML VIAL SUBQ SCH ×4 (07:44→20:28)
[2020-11-12] MEDS: *HR* OxyCODONE/APAP 5/325 TABLET PO SCH (07:46)
[2020-11-12] MEDS: Azithromycin 250 MG TABLET PO SCH (07:46)
[2020-11-12] MEDS: Metoprolol XL (24 HR) Succ 50 MG TAB.ER.24H PO SCH ×2 (07:47→16:35)
[2020-11-12] MEDS ORDERED: Furosemide 20 MG/2 ML VIAL IVP ONE (11:19)
[2020-11-12] MEDS: traZODone 50 MG TABLET PO SCH (20:28)
[2020-11-13] MEDS: Ipratropium/Albuterol Neb 3 ML IH SCH ×3 (03:57→10:56)
[2020-11-13] MEDS: *HR* Heparin 5,000 UNIT/ML VIAL SQ SCH (05:16)
[2020-11-13] MEDS: MethylPREDNISolone 40 MG/ML VIAL IVP SCH (05:17)
[2020-11-13] MEDS: Insulin LISPRO 300 UNITS/3 ML VIAL SUBQ SCH ×2 (07:23→11:23)
[2020-11-13] MEDS: Budesonide/Formoterol 160/4.5 1 PUFF INH IH SCH (07:35)
[2020-11-13] MEDS: Azithromycin 250 MG TABLET PO SCH (07:41)
[2020-11-13] MEDS: *HR* OxyCODONE/APAP 5/325 TABLET PO SCH (07:41)
[2020-11-13] MEDS: Metoprolol XL (24 HR) Succ 50 MG TAB.ER.24H PO SCH (07:42)
[2020-11-13 10:22] VITALS: BP 155/83
== END 2020-11-13 14:23 | disposition home or self-care (01) | DRG 190 ==
LOC: 2ANU 14:06 → EMEROOARM 14:06 → SUATTDRO 17:51 → 2NENU 17:54 → SUATTDRO 11-10 18:22 → 3BNU 11-11 04:16
PROVIDERS: ADMIT Internal Medicine; ATTEND Student in an Organized Health Care Education/Training Program

== ENCOUNTER 2021-02-04 20:48 | Inpatient (IN) ==
[2021-02-04] MEDS ORDERED: Ipratropium/Albuterol Neb 3 ML IH ONE (22:12)
[2021-02-04] MEDS ORDERED: methylPREDNISolone 125 MG/2 ML VIAL IVP ONE (22:13)
[2021-02-04 22:37] LABS: Basophils # 0.1 K/mcL (0.0-0.2); Basophils % 1.4 %; Eosinophils # 1.7 K/mcL (0.0-0.6); Eosinophils % 17.5 %; Hematocrit 43.7 % (37.5-50.1); Hemoglobin 14.4 g/dL (12.9-16.9); Immature Granulocytes % 0.5 % (0-4); Lymphocytes # 1.5 K/mcL (0.6-4.6); Lymphocytes % 14.8 %; Mean Corpuscular Hemoglobin 28.7 pg (28.0-33.3); Mean Corpuscular Volume 87.2 fL (83.0-100.0); Mean Platelet Volume 9.1 fL (9.4-12.4); Monocytes # 0.9 K/mcL (0.0-1.3); Neutrophils # 5.6 K/mcL (1.6-8.9); Platelet Count 288 K/mcL (140-400); Red Blood Count 5.01 M/mcL (4.19-5.50); Red Cell Distribution Width 12.8 % (11.5-14.5); Segmented Neutrophils % 56.8 %; White Blood Count 9.8 K/mcL (4.3-11.1)
[2021-02-04 22:57] LABS: BUN/Creatinine Ratio 10 (6-26); Blood Urea Nitrogen 7 mg/dL (8-23); Calcium 9.4 mg/dL (8.6-10.3); Carbon Dioxide 23 mEq/L (23-29); Chloride 95 mEq/L (98-107); Glucose 91 mg/dL (70-105); Osmolality,Calculated 264 (280-300); Potassium 3.8 mEq/L (3.5-5.1); Sodium 128 mEq/L (136-145); eGFR For African Americans > 60 (> 60); eGFR For Non-African Americans > 60 (> 60)
[2021-02-04 22:58] LABS: Troponin I < 0.03 ng/mL (< 0.04)
[2021-02-05] MEDS ORDERED: Isovue-370 500 ML BOTTLE IVP ONE (00:15)
[2021-02-05] MEDS ORDERED: Albuterol 2.5 MG/3 ML NEBULIZER IH ONE (01:54)
[2021-02-05] MEDS ORDERED: Azithromycin 500 MG in 0.9 % Sodium Chloride 250 ML IVPB ONE (01:58)
[2021-02-05] MEDS ORDERED: Naloxone 0.4 MG/ML INJ IVP PRN (02:11)
[2021-02-05] MEDS ORDERED: Ondansetron 4 MG/2 ML VIAL IVP PRN (02:47)
[2021-02-05] MEDS ORDERED: Acetaminophen 325 MG TABLET PO PRN (02:47)
[2021-02-05] MEDS ORDERED: methylPREDNISolone 125 MG/2 ML VIAL IVP ONE (04:00)
[2021-02-05] MEDS ORDERED: *HR* Dextrose 50 % in Water (Vial) 50 ML VIAL IVP PRN (04:53)
[2021-02-05] MEDS ORDERED: Dextrose Gel 15 GM/37.5 ML TUBE PO PRN ×2 (04:53)
[2021-02-05] MEDS ORDERED: D5% in Water 1,000 ML IVC PRN (04:53)
[2021-02-05] MEDS ORDERED: Furosemide 40 MG/4 ML VIAL IVP ONE (04:56)
[2021-02-05 06:32] LABS: Basophils % 0.6 %; Eosinophils % 0.2 %; Hematocrit 43.6 % (37.5-50.1); Hemoglobin 14.8 g/dL (12.9-16.9); Immature Granulocytes % 0.4 % (0-4); Lymphocytes # 0.4 K/mcL (0.6-4.6); Lymphocytes % 8.2 %; Mean Corpuscular HGB Conc 33.9 g/dL (31.6-35.5); Mean Corpuscular Hemoglobin 29.1 pg (28.0-33.3); Mean Corpuscular Volume 85.7 fL (83.0-100.0); Mean Platelet Volume 9.5 fL (9.4-12.4); Monocytes # 0.1 K/mcL (0.0-1.3); Monocytes % 1.7 %; Neutrophils # 4.3 K/mcL (1.6-8.9); Platelet Count 312 K/mcL (140-400); Red Blood Count 5.09 M/mcL (4.19-5.50); Red Cell Distribution Width 12.6 % (11.5-14.5); Segmented Neutrophils % 88.9 %
[2021-02-05 06:33] LABS: White Blood Count 4.8 K/mcL (4.3-11.1)
[2021-02-05] MEDS: *HR* Enoxaparin 40 MG/0.4 ML SYRINGE SQ SCH (06:35)
[2021-02-05 06:40] LABS: Prothrombin Time 12.1 Seconds (9.4-12.1)
[2021-02-05 06:46] LABS: Alanine Aminotransferase 36 Units/L (7-52); Albumin/Globulin Ratio 1.5 (1.1-2.2); Alkaline Phosphatase 89 Units/L (34-104); Aspartate Amino Transferase 31 Units/L (13-39); BUN/Creatinine Ratio 10 (6-26); Bilirubin,Total 0.6 mg/dL (0.3-1.0); Blood Urea Nitrogen 7 mg/dL (8-23); Calcium 9.6 mg/dL (8.6-10.3); Carbon Dioxide 23 mEq/L (23-29); Chloride 98 mEq/L (98-107); Globulin 2.7 g/dL (2.4-3.5); Glucose 142 mg/dL (70-105); Osmolality,Calculated 274 (280-300); Potassium 4.1 mEq/L (3.5-5.1); Sodium 132 mEq/L (136-145); Total Protein 6.7 g/dL (6.4-8.9); eGFR For African Americans > 60 (> 60); eGFR For Non-African Americans > 60 (> 60)
[2021-02-05 06:51] LABS: Adenovirus Not Detected (Not Detect); Bordetella Pertussis Not Detected (Not Detect); Chlamydophila pneumoniae Not Detected (Not Detect); Coronavirus 229E Not Detected (Not Detect); Coronavirus HKU1 Not Detected (Not Detect); Coronavirus NL63 Not Detected (Not Detect); Coronavirus OC43 Not Detected (Not Detect); Human Metapneumovirus Not Detected (Not Detect); Human Rhinovirus/Enterovirus Not Detected (Not Detect); Influenza A Subtype 2009 H1 Not Detected (Not Detect); Influenza B Not Detected (Not Detect); Mycoplasma pneumoniae Not Detected (Not Detect); Parainfluenza Virus 1 Not Detected (Not Detect); Parainfluenza Virus 2 Not Detected (Not Detect); Parainfluenza Virus 3 Not Detected (Not Detect); Parainfluenza Virus 4 Not Detected (Not Detect); Respiratory Syncytial Virus Not Detected (Not Detect); SARS-CoV-2 Not Detected (Not Detect)
[2021-02-05] MEDS: Ipratropium/Albuterol Neb 3 ML IH SCH ×5 (07:01→20:32)
[2021-02-05] MEDS: predniSONE 20 MG TABLET PO SCH (08:02)
[2021-02-05] MEDS: Metoprolol XL (24 HR) Succ 50 MG TAB.ER.24H PO SCH ×2 (08:03→18:09)
[2021-02-05] MEDS: Insulin LISPRO 300 UNITS/3 ML VIAL SUBQ SCH ×3 (08:04→18:10)
[2021-02-05] MEDS: Budesonide/Formoterol 160/4.5 1 PUFF INH IH SCH ×2 (08:17→20:32)
[2021-02-05] MEDS ORDERED: Ibuprofen 800 MG TABLET PO PRN (17:09)
[2021-02-05] MEDS: traZODone 50 MG TABLET PO SCH (22:21)
[2021-02-06] MEDS: Ipratropium/Albuterol Neb 3 ML IH SCH ×7 (00:26→23:57)
[2021-02-06] MEDS: Azithromycin 500 MG in 0.9 % Sodium Chloride 250 ML IVPB SCH (05:19)
[2021-02-06] MEDS: *HR* Enoxaparin 40 MG/0.4 ML SYRINGE SQ SCH (05:20)
[2021-02-06] MEDS: Budesonide/Formoterol 160/4.5 1 PUFF INH IH SCH ×2 (07:14→19:51)
[2021-02-06 07:15] LABS: Hematocrit 38.9 % (37.5-50.1); Hemoglobin 13.4 g/dL (12.9-16.9); Mean Corpuscular HGB Conc 34.4 g/dL (31.6-35.5); Mean Corpuscular Hemoglobin 29.5 pg (28.0-33.3); Mean Corpuscular Volume 85.5 fL (83.0-100.0); Mean Platelet Volume 9.6 fL (9.4-12.4); Platelet Count 302 K/mcL (140-400); Red Blood Count 4.55 M/mcL (4.19-5.50); Red Cell Distribution Width 12.7 % (11.5-14.5)
[2021-02-06 08:13] LABS: BUN/Creatinine Ratio 19 (6-26); Blood Urea Nitrogen 15 mg/dL (8-23); Calcium 9.2 mg/dL (8.6-10.3); Carbon Dioxide 25 mEq/L (23-29); Chloride 98 mEq/L (98-107); Glucose 119 mg/dL (70-105); Osmolality,Calculated 276 (280-300); Potassium 3.2 mEq/L (3.5-5.1); Sodium 132 mEq/L (136-145); eGFR For African Americans > 60 (> 60); eGFR For Non-African Americans > 60 (> 60)
[2021-02-06] MEDS: predniSONE 20 MG TABLET PO SCH (09:07)
[2021-02-06] MEDS: Metoprolol XL (24 HR) Succ 50 MG TAB.ER.24H PO SCH ×2 (09:07→18:01)
[2021-02-06] MEDS: Insulin LISPRO 300 UNITS/3 ML VIAL SUBQ SCH ×3 (09:08→18:01)
[2021-02-06] MEDS ORDERED: Furosemide 40 MG TABLET PO SCH (09:30)
[2021-02-06] MEDS ORDERED: Tiotropium 10 INH DOSE IH SCH (13:00)
[2021-02-06] MEDS: MethylPREDNISolone 40 MG/ML VIAL IVP SCH ×2 (13:51→18:01)
[2021-02-06 22:46] VITALS: BP 145/88
[2021-02-06] MEDS: traZODone 50 MG TABLET PO SCH (22:49)
[2021-02-07 03:45] LABS: BUN/Creatinine Ratio 25 (6-26); Blood Urea Nitrogen 19 mg/dL (8-23); Calcium 9.3 mg/dL (8.6-10.3); Carbon Dioxide 23 mEq/L (23-29); Chloride 100 mEq/L (98-107); Glucose 149 mg/dL (70-105); Magnesium 1.7 mg/dL (1.6-2.6); Osmolality,Calculated 279 (280-300); Phosphorous 3.2 mg/dL (2.7-4.5); Potassium 3.7 mEq/L (3.5-5.1); Sodium 132 mEq/L (136-145); eGFR For African Americans > 60 (> 60); eGFR For Non-African Americans > 60 (> 60)
[2021-02-07] MEDS: Ipratropium/Albuterol Neb 3 ML IH SCH ×3 (04:06→11:02)
[2021-02-07] MEDS: *HR* Enoxaparin 40 MG/0.4 ML SYRINGE SQ SCH (04:16)
[2021-02-07] MEDS: Azithromycin 500 MG in 0.9 % Sodium Chloride 250 ML IVPB SCH (04:16)
[2021-02-07] MEDS: Budesonide/Formoterol 160/4.5 1 PUFF INH IH SCH (07:24)
[2021-02-07] MEDS: Insulin LISPRO 300 UNITS/3 ML VIAL SUBQ SCH (07:49)
[2021-02-07] MEDS: Metoprolol XL (24 HR) Succ 50 MG TAB.ER.24H PO SCH (07:59)
[2021-02-07] MEDS ORDERED: predniSONE 20 MG TABLET PO SCH (09:00)
== END 2021-02-07 11:23 | disposition home or self-care (01) | DRG 191 ==
LOC: CDU 20:48 → EMEROOARM 20:48 → SUATTDRO 02-05 02:12 → CDU 02-05 02:22 → 3BNU 02-05 19:30 → SUATTDRO 02-06 15:01
PROVIDERS: ADMIT Student in an Organized Health Care Education/Training Program; ATTEND Internal Medicine

== ENCOUNTER 2021-07-28 11:55 | Observation (INO) ==
[2021-07-28] MEDS ORDERED: Azithromycin 500 MG in 0.9 % Sodium Chloride 250 ML IVPB ONE (12:34)
[2021-07-28] MEDS ORDERED: methylPREDNISolone 125 MG/2 ML VIAL IVP ONE (12:34)
[2021-07-28] MEDS ORDERED: cefTRIAXone 1,000 MG in Water for inj. (sterile) 10 ML IVP ONE (12:34)
[2021-07-28] MEDS ORDERED: Ipratropium/Albuterol Neb 3 ML IH ONE (12:35)
[2021-07-28 13:01] LABS: Basophils # 0.1 K/mcL (0.0-0.2); Basophils % 1.2 %; Eosinophils # 1.1 K/mcL (0.0-0.6); Eosinophils % 11.4 %; Hematocrit 41.5 % (37.5-50.1); Hemoglobin 14.2 g/dL (12.9-16.9); Immature Granulocytes % 0.4 % (0-4); Lymphocytes # 1.3 K/mcL (0.6-4.6); Lymphocytes % 13.1 %; Mean Corpuscular HGB Conc 34.2 g/dL (31.6-35.5); Mean Corpuscular Hemoglobin 30.3 pg (28.0-33.3); Mean Corpuscular Volume 88.5 fL (83.0-100.0); Mean Platelet Volume 9.6 fL (9.4-12.4); Monocytes # 0.8 K/mcL (0.0-1.3); Monocytes % 8.3 %; Neutrophils # 6.5 K/mcL (1.6-8.9); Platelet Count 265 K/mcL (140-400); Red Blood Count 4.69 M/mcL (4.19-5.50); Red Cell Distribution Width 13.5 % (11.5-14.5); Segmented Neutrophils % 65.6 %; White Blood Count 9.9 K/mcL (4.3-11.1)
[2021-07-28] MEDS ORDERED: Albuterol 2.5 MG/3 ML NEBULIZER IH ONE (13:49)
[2021-07-28 14:00] LABS: BUN/Creatinine Ratio 20 (6-26); Blood Urea Nitrogen 16 mg/dL (8-23); Calcium 9.3 mg/dL (8.6-10.3); Carbon Dioxide 22 mEq/L (23-29); Chloride 102 mEq/L (98-107); Glucose 112 mg/dL (70-105); Osmolality,Calculated 280 (280-300); Sodium 134 mEq/L (136-145); Troponin I < 0.03 ng/mL (< 0.04); eGFR For African Americans > 60 (> 60); eGFR For Non-African Americans > 60 (> 60)
[2021-07-28] MEDS ORDERED: Naloxone 0.4 MG/ML INJ IVP PRN (14:09)
[2021-07-28] MEDS ORDERED: Acetaminophen 325 MG TABLET PO PRN (14:09)
[2021-07-28] MEDS ORDERED: *HR* Dextrose 50 % in Water (Syg) 50 ML SYRINGE IVP PRN (14:09)
[2021-07-28] MEDS ORDERED: D5% in Water 1,000 ML IVC PRN (14:09)
[2021-07-28] MEDS ORDERED: Ondansetron 4 MG/2 ML VIAL IVP PRN (14:09)
[2021-07-28] MEDS ORDERED: Dextrose Gel 15 GM/37.5 ML TUBE PO PRN ×2 (14:09)
[2021-07-28] MEDS ORDERED: *HR* OxyCODONE Immed Rel 5 MG TABLET PO PRN (14:13)
[2021-07-28 15:14] LABS: Adenovirus Not Detected (Not Detect); Bordetella Pertussis Not Detected (Not Detect); Chlamydophila pneumoniae Not Detected (Not Detect); Coronavirus 229E Not Detected (Not Detect); Coronavirus HKU1 Not Detected (Not Detect); Coronavirus NL63 Not Detected (Not Detect); Coronavirus OC43 Not Detected (Not Detect); Human Metapneumovirus Not Detected (Not Detect); Human Rhinovirus/Enterovirus Not Detected (Not Detect); Influenza A Subtype 2009 H1 Not Detected (Not Detect); Influenza B Not Detected (Not Detect); Mycoplasma pneumoniae Not Detected (Not Detect); Parainfluenza Virus 1 Not Detected (Not Detect); Parainfluenza Virus 2 Not Detected (Not Detect); Parainfluenza Virus 3 Not Detected (Not Detect); Parainfluenza Virus 4 Not Detected (Not Detect); Respiratory Syncytial Virus Not Detected (Not Detect); SARS-CoV-2 Not Detected (Not Detect)
[2021-07-28] MEDS: Insulin LISPRO 300 UNITS/3 ML VIAL SUBQ SCH (16:30)
[2021-07-29] MEDS: Levalbuterol Neb 1.25 MG/3 ML IH SCH ×5 (00:06→20:33)
[2021-07-29] MEDS ORDERED: Levalbuterol Neb 1.25 MG/3 ML IH ONE (01:52)
[2021-07-29 05:13] LABS: Basophils % 0.2 %; Hematocrit 39.8 % (37.5-50.1); Hemoglobin 13.5 g/dL (12.9-16.9); Immature Granulocytes % 0.2 % (0-4); Lymphocytes % 11.1 %; Mean Corpuscular HGB Conc 33.9 g/dL (31.6-35.5); Mean Corpuscular Hemoglobin 29.5 pg (28.0-33.3); Mean Corpuscular Volume 86.9 fL (83.0-100.0); Mean Platelet Volume 9.3 fL (9.4-12.4); Monocytes # 0.5 K/mcL (0.0-1.3); Monocytes % 6.1 %; Neutrophils # 7.3 K/mcL (1.6-8.9); Platelet Count 265 K/mcL (140-400); Red Blood Count 4.58 M/mcL (4.19-5.50); Red Cell Distribution Width 13.4 % (11.5-14.5); Segmented Neutrophils % 82.4 %; White Blood Count 8.9 K/mcL (4.3-11.1)
[2021-07-29 05:34] LABS: BUN/Creatinine Ratio 21 (6-26); Blood Urea Nitrogen 15 mg/dL (8-23); Calcium 9.5 mg/dL (8.6-10.3); Carbon Dioxide 20 mEq/L (23-29); Chloride 104 mEq/L (98-107); Glucose 115 mg/dL (70-105); Magnesium 1.7 mg/dL (1.6-2.6); Osmolality,Calculated 278 (280-300); Sodium 133 mEq/L (136-145); eGFR For African Americans > 60 (> 60); eGFR For Non-African Americans > 60 (> 60)
[2021-07-29] MEDS: MethylPREDNISolone 40 MG/ML VIAL IVP SCH ×2 (05:49→18:53)
[2021-07-29] MEDS: *HR* Enoxaparin 40 MG/0.4 ML SYRINGE SQ SCH (05:50)
[2021-07-29] MEDS: Insulin LISPRO 300 UNITS/3 ML VIAL SUBQ SCH ×3 (09:09→16:30)
[2021-07-29] MEDS: Metoprolol XL (24 HR) Succ 50 MG TAB.ER.24H PO SCH (09:19)
[2021-07-29] MEDS: Tiotropium 10 INH DOSE IH SCH (10:52)
[2021-07-29] MEDS: Budesonide/Formoterol 160/4.5 1 PUFF INH IH SCH ×2 (10:52→20:33)
[2021-07-29] MEDS: Roflumilast [Daliresp] 500 MCG Tablet PO SCH (11:47)
[2021-07-29] MEDS ORDERED: Azithromycin 500 MG in 0.9 % Sodium Chloride 250 ML IVPB SCH (13:00)
[2021-07-29] MEDS ORDERED: Metoprolol XL (24 HR) Succ 50 MG TAB.ER.24H PO SCH (18:00)
[2021-07-30] MEDS: Levalbuterol Neb 1.25 MG/3 ML IH SCH ×2 (04:00→13:33)
[2021-07-30 04:01] VITALS: O2SAT 96
[2021-07-30] MEDS: *HR* Enoxaparin 40 MG/0.4 ML SYRINGE SQ SCH (05:55)
[2021-07-30] MEDS: MethylPREDNISolone 40 MG/ML VIAL IVP SCH (05:55)
[2021-07-30 06:56] VITALS: BP 150/86; PULSE 67; TEMP 97.7
[2021-07-30] MEDS: Roflumilast [Daliresp] 500 MCG Tablet PO SCH (08:17)
[2021-07-30] MEDS: Metoprolol XL (24 HR) Succ 50 MG TAB.ER.24H PO SCH (08:17)
[2021-07-30] MEDS ORDERED: Azithromycin 250 MG TABLET PO SCH (13:00)
[2021-07-30] MEDS: Tiotropium 10 INH DOSE IH SCH (13:32)
[2021-07-30] MEDS: Budesonide/Formoterol 160/4.5 1 PUFF INH IH SCH (13:33)
== END 2021-07-30 13:35 | disposition home or self-care (01) ==
LOC: 3ANU 11:55 → EMEROOARM 11:55 → SUATTDRO 14:31 → 3ANU 16:06
PROVIDERS: ADMIT Pharmacist; ATTEND Internal Medicine

== ENCOUNTER 2022-01-01 05:49 | Observation (INO) ==
[2022-01-01] MEDS ORDERED: CeFAZolin Syr 2,000MG/20 ML 2,000 MG/20 ML SYRINGE IVPB ONE (06:10)
[2022-01-01] MEDS ORDERED: Ringers Solution, Lactated 1,000 ML IVC SCH ×2 (06:15→13:53)
[2022-01-01] MEDS ORDERED: Ondansetron 4 MG/2 ML VIAL IVP PRN ×2 (06:25→13:53)
[2022-01-01] MEDS ORDERED: Ipratropium/Albuterol Neb 3 ML IH ONE (06:28)
[2022-01-01] MEDS ORDERED: *HR* FentaNYL (PF) 100 MCG/2 ML VIAL ONE ×2 (06:40→08:14)
[2022-01-01] MEDS ORDERED: Lidocaine -MPF 2% 2 ML VIAL ONE (06:40)
[2022-01-01] MEDS ORDERED: *HR* Midazolam HCl 2 MG/2 ML VIAL ONE (06:40)
[2022-01-01] MEDS ORDERED: *HR* Propofol 200 MG/20 ML VIAL IVP ONE (06:40)
[2022-01-01] MEDS ORDERED: *HR* Succinylcholine 200 MG/10 ML VIAL IVP ONE (06:40)
[2022-01-01] MEDS ORDERED: Lidocaine HCL 4 ML Topical Solution (Laryng-O-Jet Kit Sterile Pak) TP ONE (06:54)
[2022-01-01] MEDS ORDERED: Ondansetron 4 MG/2 ML VIAL ONE (06:55)
[2022-01-01] MEDS ORDERED: Famotidine 20 MG TABLET PO ONE (07:00)
[2022-01-01] MEDS ORDERED: *HR* Rocuronium Bromide 50 MG/5 ML VIAL ONE ×2 (07:35→08:22)
[2022-01-01] MEDS ORDERED: EPHEDrine 50 MG/ML VIAL ONE (07:48)
[2022-01-01] MEDS ORDERED: Tranexamic Acid 1,000 MG/10 ML VIAL ONE (07:48)
[2022-01-01] MEDS ORDERED: Ketamine HCL *QUVA* 50mg (1mL) SYRINGE ONE (08:00)
[2022-01-01] MEDS ORDERED: *HR* HYDROMORPHONE 2 MG/ML VIAL ONE (08:58)
[2022-01-01] MEDS ORDERED: Sugammadex Sodium 200 MG/2 ML VIAL IV ONE (09:06)
[2022-01-01] MEDS: *HR* FentaNYL (PF) 100 MCG/2 ML VIAL IVP PRN ×4 (09:50→10:05)
[2022-01-01] MEDS: *HR* HYDROmorphone PF 0.5 MG/0.5 ML SYRINGE IVP PRN ×4 (10:10→10:42)
[2022-01-01] MEDS ORDERED: *HR* OxyCODONE Immed Rel 5 MG TABLET PO PRN (10:29)
[2022-01-01] MEDS ORDERED: *HR* HYDROmorphone (PF) 1 MG/ML SYRINGE IVP PRN (13:53)
[2022-01-01] MEDS ORDERED: MOM Conc 10 ML UD.LIQ PO PRN (13:53)
[2022-01-01] MEDS ORDERED: Naloxone 0.4 MG/ML INJ IVP PRN (13:53)
[2022-01-01] MEDS ORDERED: *HR* Promethazine 25 MG/ML VIAL IM PRN (13:53)
[2022-01-01] MEDS ORDERED: Sennosides 8.6 MG TABLET PO PRN (13:53)
[2022-01-01] MEDS: Ketorolac 30 MG/ML VIAL IVP SCH ×2 (14:43→18:28)
[2022-01-01] MEDS: *HR* Metformin 500 MG TABLET PO SCH (16:52)
[2022-01-01] MEDS: Ascorbic Acid 500 MG TABLET PO SCH (16:52)
[2022-01-01] MEDS: Metoprolol XL (24 HR) Succ 50 MG TAB.ER.24H PO SCH (16:53)
[2022-01-01] MEDS: CeFAZolin 2 GM/120 ML BAG IVPB SCH (17:15)
[2022-01-01] MEDS: *HR* OxyCODONE Immed Rel 5 MG TABLET PO PRN (20:24)
[2022-01-02] MEDS: Ketorolac 30 MG/ML VIAL IVP SCH ×5 (00:02→23:55)
[2022-01-02] MEDS: CeFAZolin 2 GM/120 ML BAG IVPB SCH (00:07)
[2022-01-02] MEDS: *HR* OxyCODONE Immed Rel 5 MG TABLET PO PRN ×4 (05:38→20:38)
[2022-01-02 06:55] LABS: Basophils % 0.8 %; Eosinophils # 0.1 K/mcL (0.0-0.6); Eosinophils % 0.8 %; Hematocrit 35.7 % (37.5-50.1); Immature Granulocytes % 0.6 % (0-4); Lymphocytes # 1.5 K/mcL (0.6-4.6); Lymphocytes % 14.8 %; Mean Corpuscular HGB Conc 33.6 g/dL (31.6-35.5); Mean Corpuscular Hemoglobin 30.2 pg (28.0-33.3); Mean Corpuscular Volume 89.9 fL (83.0-100.0); Mean Platelet Volume 9.4 fL (9.4-12.4); Monocytes # 1.2 K/mcL (0.0-1.3); Platelet Count 242 K/mcL (140-400); Red Blood Count 3.97 M/mcL (4.19-5.50); Red Cell Distribution Width 13.2 % (11.5-14.5); White Blood Count 9.8 K/mcL (4.3-11.1)
[2022-01-02 06:56] LABS: Basophils # 0.1 K/mcL (0.0-0.2)
[2022-01-02 07:16] LABS: BUN/Creatinine Ratio 17 (6-26); Blood Urea Nitrogen 14 mg/dL (8-23); Calcium 8.8 mg/dL (8.6-10.3); Carbon Dioxide 25 mEq/L (23-29); Chloride 100 mEq/L (98-107); Glucose 104 mg/dL (70-105); Osmolality,Calculated 271 (280-300); Potassium 3.9 mEq/L (3.5-5.1); Sodium 130 mEq/L (136-145); eGFR For African Americans > 60 (> 60); eGFR For Non-African Americans > 60 (> 60)
[2022-01-02] MEDS: Ascorbic Acid 500 MG TABLET PO SCH ×2 (07:58→15:32)
[2022-01-02] MEDS: Metoprolol XL (24 HR) Succ 50 MG TAB.ER.24H PO SCH ×2 (07:59→17:12)
[2022-01-02] MEDS: Multivit/Ca/Min/Fe/FA 1 TAB TABLET PO SCH (07:59)
[2022-01-02] MEDS: *HR* Metformin 500 MG TABLET PO SCH ×2 (07:59→15:31)
[2022-01-02] MEDS: Roflumilast [Daliresp] 500 MCG Tablet PO SCH (07:59)
[2022-01-02] MEDS: Aspirin Enteric Coated 325 MG Tablet PO SCH ×2 (08:06→20:31)
[2022-01-02] MEDS: Albuterol 2.5 MG/3 ML NEBULIZER IH PRN ×3 (08:10→23:56)
[2022-01-03] MEDS: Ketorolac 30 MG/ML VIAL IVP SCH ×3 (04:30→17:42)
[2022-01-03] MEDS: *HR* OxyCODONE Immed Rel 5 MG TABLET PO PRN ×3 (04:30→17:48)
[2022-01-03 06:25] LABS: Basophils # 0.1 K/mcL (0.0-0.2); Basophils % 0.7 %; Eosinophils # 0.1 K/mcL (0.0-0.6); Eosinophils % 0.9 %; Hematocrit 35.2 % (37.5-50.1); Hemoglobin 11.8 g/dL (12.9-16.9); Immature Granulocytes % 0.4 % (0-4); Lymphocytes # 1.2 K/mcL (0.6-4.6); Lymphocytes % 12.6 %; Mean Corpuscular HGB Conc 33.5 g/dL (31.6-35.5); Mean Corpuscular Hemoglobin 29.6 pg (28.0-33.3); Mean Corpuscular Volume 88.4 fL (83.0-100.0); Mean Platelet Volume 9.6 fL (9.4-12.4); Monocytes # 1.5 K/mcL (0.0-1.3); Monocytes % 14.7 %; Platelet Count 238 K/mcL (140-400); Red Blood Count 3.98 M/mcL (4.19-5.50); Red Cell Distribution Width 13.2 % (11.5-14.5); Segmented Neutrophils % 70.7 %; White Blood Count 9.9 K/mcL (4.3-11.1)
[2022-01-03 06:45] LABS: BUN/Creatinine Ratio 15 (6-26); Blood Urea Nitrogen 13 mg/dL (8-23); Calcium 8.7 mg/dL (8.6-10.3); Carbon Dioxide 30 mEq/L (23-29); Chloride 98 mEq/L (98-107); Glucose 107 mg/dL (70-105); Osmolality,Calculated 277 (280-300); Potassium 3.5 mEq/L (3.5-5.1); Sodium 133 mEq/L (136-145); eGFR For African Americans > 60 (> 60); eGFR For Non-African Americans > 60 (> 60)
[2022-01-03] MEDS: Aspirin Enteric Coated 325 MG Tablet PO SCH ×2 (08:55→20:25)
[2022-01-03] MEDS: *HR* Metformin 500 MG TABLET PO SCH ×2 (08:55→17:42)
[2022-01-03] MEDS: Ascorbic Acid 500 MG TABLET PO SCH ×2 (08:55→17:42)
[2022-01-03] MEDS: Multivit/Ca/Min/Fe/FA 1 TAB TABLET PO SCH (08:55)
[2022-01-03] MEDS: Metoprolol XL (24 HR) Succ 50 MG TAB.ER.24H PO SCH ×2 (08:57→17:42)
[2022-01-03] MEDS: Roflumilast [Daliresp] 500 MCG Tablet PO SCH (12:44)
[2022-01-03] MEDS: Albuterol 2.5 MG/3 ML NEBULIZER IH PRN (17:48)
[2022-01-04] MEDS: Ketorolac 30 MG/ML VIAL IVP SCH ×4 (00:32→16:47)
[2022-01-04] MEDS: Albuterol 2.5 MG/3 ML NEBULIZER IH PRN ×2 (00:35→22:52)
[2022-01-04] MEDS: Aspirin Enteric Coated 325 MG Tablet PO SCH ×2 (08:20→20:56)
[2022-01-04] MEDS: *HR* Metformin 500 MG TABLET PO SCH ×2 (08:21→16:47)
[2022-01-04] MEDS: Ascorbic Acid 500 MG TABLET PO SCH ×2 (08:22→16:47)
[2022-01-04] MEDS: Metoprolol XL (24 HR) Succ 50 MG TAB.ER.24H PO SCH ×2 (08:22→16:47)
[2022-01-04] MEDS: Multivit/Ca/Min/Fe/FA 1 TAB TABLET PO SCH (08:22)
[2022-01-04] MEDS: *HR* OxyCODONE Immed Rel 5 MG TABLET PO PRN ×2 (13:30→22:50)
[2022-01-05] MEDS: Ketorolac 30 MG/ML VIAL IVP SCH ×5 (00:30→23:09)
[2022-01-05] MEDS: Albuterol 2.5 MG/3 ML NEBULIZER IH PRN (06:00)
[2022-01-05] MEDS: Aspirin Enteric Coated 325 MG Tablet PO SCH ×2 (09:01→20:49)
[2022-01-05] MEDS: *HR* Metformin 500 MG TABLET PO SCH ×2 (09:01→17:39)
[2022-01-05] MEDS: Multivit/Ca/Min/Fe/FA 1 TAB TABLET PO SCH (09:02)
[2022-01-05] MEDS: Ascorbic Acid 500 MG TABLET PO SCH ×2 (09:03→17:39)
[2022-01-05] MEDS: *HR* OxyCODONE Immed Rel 5 MG TABLET PO PRN (09:03)
[2022-01-05] MEDS: Metoprolol XL (24 HR) Succ 50 MG TAB.ER.24H PO SCH ×2 (09:03→17:39)
[2022-01-06] MEDS: Albuterol 2.5 MG/3 ML NEBULIZER IH PRN (01:36)
[2022-01-06] MEDS: Ketorolac 30 MG/ML VIAL IVP SCH (05:51)
[2022-01-06] MEDS: *HR* OxyCODONE Immed Rel 5 MG TABLET PO PRN ×2 (05:55→14:48)
[2022-01-06] MEDS: *HR* Metformin 500 MG TABLET PO SCH (08:27)
[2022-01-06] MEDS: Ascorbic Acid 500 MG TABLET PO SCH (08:28)
[2022-01-06] MEDS: Multivit/Ca/Min/Fe/FA 1 TAB TABLET PO SCH (08:28)
[2022-01-06] MEDS: Aspirin Enteric Coated 325 MG Tablet PO SCH (08:28)
[2022-01-06] MEDS: Metoprolol XL (24 HR) Succ 50 MG TAB.ER.24H PO SCH (08:28)
[2022-01-06 11:13] VITALS: BP 149/85; PULSE 76; TEMP 98.5; O2SAT 94
== END 2022-01-06 15:12 | disposition home or self-care (01) ==
LOC: SDCAOSI 05:49 → 4WAOSI 05:49
PROVIDERS: ADMIT Orthopaedic Surgery; ATTEND Orthopaedic Surgery